=== PATIENT | male | born 1995 | race Caucasian/White ===

== ENCOUNTER 2016-06-28 19:45 | Emergency (ER) | payer OTHER ==
[2016-06-28 20:08] VITALS: RESP 18
--- NOTE | 2016-06-28 21:08 | ED ---
Skin/Abscess/FB HPI - General Chief complaint: Skin/Abscess/Foreign Body Stated complaint: rash Time Seen by Provider: 06/28/16 20:36 Source: patient, RN notes reviewed Mode of arrival: ambulatory Limitations: no limitations - History of Present Illness Initial comments: Patient is 20-year-old male presents to the emergency room for evaluation a rash. Patient states he went to [place] about a month ago and stayed at a friend's house on their couch. Patient states he began developing this rash towards the end of this trip in [place]. Patient states the rash has not gone away since the trip. Patient states the rash is more itchy at night. Patient states the rash is over his bilateral arms, chest, abdomen, back and bilateral legs. Patient states he's been taking Benadryl and applying Benadryl cream over the area with little relief of symptoms. Patient denies any new soaps, detergents, body washes. Patient denies any new pets or plants. Patient denies trying any new foods or new medications. Patient states she's never had this rash before. Patient states the rash is very irritating and itchy. - Related Data Home Medications Medication Instructions Recorded Confirmed diphenhydrAMINE HCL [Benadryl] 25 mg PO Q4-6H PRN 06/28/16 06/28/16 Previous Rx's Medication Instructions Recorded Permethrin 5% Cream [Elimite] 1 applic TOPICAL DIRECTED #1 06/28/16 tube Allergies Allergy/AdvReac Type Severity Reaction Status Date / Time No Known Allergies Allergy Verified 06/28/16 20:38 Review of Systems ROS Statement: Those systems with pertinent positive or pertinent negative responses have been documented in the HPI. ROS Other: All systems not noted in ROS Statement are negative. Past Medical History Past Medical History: No Reported History Additional Past Medical History / Comment(s): Hep C History of Any Multi-Drug Resistant Organisms: None Reported Past Surgical History: No Surgical Hx Reported Past Psychological History: No Psychological Hx Reported Smoking Status: Current every day smoker Past Alcohol Use History: None Reported Past Drug Use History: Marijuana General Exam - General Exam Comments Initial Comments: Sitting in exam room in no acute distress. Limitations: no limitations General appearance: alert, in no apparent distress Head exam: Present: atraumatic, normocephalic, normal inspection Eye exam: Present: normal appearance ENT exam: Present: normal exam Neck exam: Present: normal inspection Respiratory exam: Present: normal lung sounds bilaterally. Absent: respiratory distress Cardiovascular Exam: Present: regular rate, normal rhythm, normal heart sounds Extremities exam: Present: normal inspection Back exam: Present: normal inspection Neurological exam: Present: alert, oriented X3, CN II-XII intact, normal gait Psychiatric exam: Present: normal affect, normal mood Skin exam: Present: warm, dry, rash (Erythematous papule lesions starting in the webbing of fingers radiating up hands, arms, chest, abdomen, back and bilateral legs) Course Vital Signs 06/28/16 06/28/16 20:05 21:15 Temperature 98.0 F 97.9 F Pulse Rate 79 80 Respiratory 18 18 Rate Blood Pressure 124/84 119/63 O2 Sat by Pulse 98 97 Oximetry Medical Decision Making - Medical Decision Making Patient is a 20-year-old male presents to the emergency room for reevaluation of rash. Rash consistent with scabies. Patient will be placed on permethrin cream. Educated patient on permethrin cream application. Advised patient to follow-up with assistant purchasing manager if symptoms are not improving after application. Patient states he understands everything that was discussed with him. Return parameters discussed. Case discussed with Dr. Wylie. Disposition Clinical Impression: Scabies Disposition: HOME SELF-CARE Condition: Good Instructions: Scabies (ED) Additional Instructions: Apply cream from head to toe and leave on for 8-14 hours. Wash off in shower with soap and water. Repeat process in 7 days. If symptoms are not improving, please follow-up with assistant purchasing manager. If any new symptom arises or symptoms worsen, return to ER as soon as possible. Prescriptions: Permethrin 5% Cream [Elimite] 1 applic TOPICAL DIRECTED #1 tube Referrals: Analisa Carpenter MD [STAFF PHYSICIAN] - 1-2 days Time of Disposition: 21:05
[2016-06-28 21:15] VITALS: BP 119/63; PULSE 80; TEMP 97.9
== END 2016-06-28 21:15 | disposition home or self-care (01) ==
LOC: EC 19:45
DX: B86 Scabies (principal); F17.200 Nicotine dependence, unspecified, uncomplicated
CPT/HCPCS: 99282

== ENCOUNTER 2017-07-23 15:32 | Emergency (ER) | payer OTHER ==
[2017-07-23 16:07] VITALS: BP 125/82; PULSE 74; RESP 18; TEMP 98.5
[2017-07-23] MEDS ORDERED: DIPH,PERTUS(ACELL)TETVAC-LF 0.5 ML VIAL IM ONE (16:58)
--- NOTE | 2017-07-23 17:24 | XR ---
EXAMINATION TYPE: XR finger LT DATE OF EXAM: 07/23/2017 COMPARISON: NONE HISTORY: Distal thumb laceration TECHNIQUE: 3 views left thumb FINDINGS: No acute fractures are evident. Soft tissues appear normal. No radiopaque foreign bodies ar e evident. IMPRESSION: 1. Normal three-view left thumb. 2. Follow-up exams can be performed 7-10 days from acute trauma for continued pain.
--- NOTE | 2017-07-23 17:57 | ED ---
Wound/Laceration HPI - General Chief Complaint: Wound/Laceration Stated Complaint: Thumb Laceration Time Seen by Provider: 07/23/17 16:50 Source: patient Mode of arrival: ambulatory Limitations: no limitations - History of Present Illness Initial Comments: 21-year-old male patient presents to the emergency department today for evaluation of a laceration to the left thumb. Patient states that he was lifting a filing cabinet when the cabinet slid and sliced his finger. He states he is unsure how deep the injury is. It doesn't involve the nail. He denies any difficulty with range of motion. States however he does have increased pain with movement of the thumb. He is unsure when his last tetanus vaccine was given. He denies any other injuries. Patient denies any headache, neck pain, back pain, chest pain, shortness of breath, dizziness, weakness, abdominal pain, nausea, vomiting, or difficulties with bowel movements or urination. - Related Data Home Medications Medication Instructions Recorded Confirmed diphenhydrAMINE HCL [Benadryl] 25 mg PO Q4-6H PRN 06/28/16 06/28/16 Previous Rx's Medication Instructions Recorded Permethrin 5% Cream [Elimite] 1 applic TOPICAL DIRECTED #1 06/28/16 tube Allergies Allergy/AdvReac Type Severity Reaction Status Date / Time No Known Allergies Allergy Verified 07/23/17 16:07 Review of Systems ROS Statement: Those systems with pertinent positive or pertinent negative responses have been documented in the HPI. ROS Other: All systems not noted in ROS Statement are negative. Past Medical History Past Medical History: No Reported History Additional Past Medical History / Comment(s): Hep C History of Any Multi-Drug Resistant Organisms: None Reported Past Surgical History: No Surgical Hx Reported Past Psychological History: No Psychological Hx Reported Smoking Status: Current every day smoker Past Alcohol Use History: None Reported Past Drug Use History: None Reported General Exam Limitations: no limitations General appearance: alert, in no apparent distress, other (This is a well- developed, well-nourished adult male patient in no acute distress. Vital signs upon presentation are temperature 98.5F, pulse 74, respirations 18, blood pressure 125/82, pulse ox 98% on room air.) Eye exam: Present: normal appearance, PERRL, EOMI. Absent: scleral icterus, conjunctival injection, periorbital swelling ENT exam: Present: normal exam, normal oropharynx, mucous membranes moist Respiratory exam: Present: normal lung sounds bilaterally. Absent: respiratory distress, wheezes, rales, rhonchi, stridor Cardiovascular Exam: Present: regular rate, normal rhythm, normal heart sounds. Absent: systolic murmur, diastolic murmur, rubs, gallop, clicks Extremities exam: Present: full ROM, normal capillary refill, other (There is a 3 cm laceration to the dorsal aspect of the left thumb, there is approximately 0.5 cm of nail involvement on the proximal nail fold. Bleeding is currently controlled. Patient has full range of motion without limitation. Radial pulses 2+ and equal bilaterally. Remainder of skin is pink, warm, and dry. Cap refills less than 3 seconds.). Absent: normal inspection, tenderness, pedal edema, joint swelling, calf tenderness Neurological exam: Present: alert, oriented X3, CN II-XII intact Psychiatric exam: Present: normal affect, normal mood Skin exam: Present: warm, dry, intact, normal color. Absent: rash Course Vital Signs 07/23/17 16:04 Temperature 98.5 F Pulse Rate 74 Respiratory 18 Rate Blood Pressure 125/82 O2 Sat by Pulse 98 Oximetry Procedures - Laceration Laceration #1 Consent Obtained: verbal consent Time Out Performed: Yes Indication: laceration Site: hand (Left thumb) Size (cm): 3 Description: linear Depth: simple, single layer Anesthetic Used: lidocaine 1% Anesthesia Technique: local infiltration Amount (mls): 3 Pre-repair: wound explored, irrigated extensively Type of Sutures: nylon Size of Sutures: 5-0 Number of Sutures: 5 Technique: simple, interrupted Patient Tolerated Procedure: well, no complications Medical Decision Making - Medical Decision Making 21-year-old male patient presented to the emergency department today for evaluation of a laceration to the left thumb. Physical exam did reveal a 3 cm laceration involving the maximal male. Laceration has been repaired as documented. Patient was updated his tetanus vaccine. He is educated regarding wound care and suture removal. He is instructed to follow-up with his doctor for recheck in 1-2 days. He is instructed to return here immediately for any new, worsening, or concerning symptoms. He verbalized understanding and agree with this plan. - Radiology Data Radiology results: report reviewed, image reviewed 3 views of left thum are obtained, no acute fractures are evident. Soft tissues appear normal. No radiopaque foreign bodies are evident. Disposition Clinical Impression: Thumb laceration Disposition: HOME SELF-CARE Condition: Good Instructions: Care For Your Stitches (ED), Laceration (ED) Additional Instructions: Keep wound clean and dry. Wash twice daily with warm water and antibacterial soap. Monitor for signs or symptoms of infection including but not limited to redness, swelling, drainage of pus, fever, or chills. Return in 7 days to have your stitches taken out. Follow-up with her doctor for recheck in 1-2 days. Return here immediately for any new, worsening, or concerning symptoms. Referrals: None,Stated [Primary Care Provider] - 1-2 days Time of Disposition: 17:57
== END 2017-07-23 18:06 | disposition home or self-care (01) ==
LOC: EC 15:32
DX: S61.012A Laceration without foreign body of left thumb without damage to nail, initial encounter (principal); F17.200 Nicotine dependence, unspecified, uncomplicated; Z23 Encounter for immunization; W45.8XXA Other foreign body or object entering through skin, initial encounter; Y93.89 Activity, other specified
CPT/HCPCS: 12002; 90471; 90715; 99283

== ENCOUNTER 2019-06-20 14:38 | Emergency (ER) | payer OTHER ==
[2019-06-20 14:49] VITALS: BP 132/79
[2019-06-20] MEDS ORDERED: IBUPROFEN 600 MG TAB PO STA (15:03)
[2019-06-20] MEDS ORDERED: ACETAMINOPHEN TAB 500 MG TAB PO STA (15:03)
[2019-06-20] MEDS ORDERED: ONDANSETRON ODT 4 MG TAB PO STA (15:03)
--- NOTE | 2019-06-20 15:28 | XR ---
EXAMINATION TYPE: XR chest 2V DATE OF EXAM: 06/20/2019 COMPARISON: Prior chest x-ray 06/25/2015 HISTORY: Fever, headache and cough TECHNIQUE: Frontal and lateral views of the chest are obtained. FINDINGS: There is no focal air space opacity, pleural effusion, or pneumothorax seen. The cardiac silhouette size is within normal limits. The osseous structures are intact. There is bronchial wall thickening. IMPRESSION: Correlate for bronchiolitis.
--- NOTE | 2019-06-20 15:42 | ED ---
Fever HPI - General Chief Complaint: Fever Stated Complaint: Headaches/body aches Time Seen by Provider: 06/20/19 14:54 Source: patient, family, RN notes reviewed Mode of arrival: ambulatory Limitations: no limitations - History of Present Illness Initial Comments: 23-year-old male presents emergency Department chief complaint of fever cough congestion bodies. Patient states he has been on and off sick but states last revised felt fever. Patient states he just does not feel well. He states he ate he had the toe. He is nonproductive cough and mild nasal congestion minimal sore throat no neck pain or neck stiffness. - Related Data Home Medications Medication Instructions Recorded Confirmed diphenhydrAMINE HCL [Benadryl] 25 mg PO Q4-6H PRN 06/28/16 06/28/16 Previous Rx's Medication Instructions Recorded Permethrin 5% Cream [Elimite] 1 applic TOPICAL DIRECTED #1 06/28/16 tube Oseltamivir [Tamiflu] 75 mg PO Q12HR #10 cap 06/20/19 Allergies Allergy/AdvReac Type Severity Reaction Status Date / Time No Known Allergies Allergy Verified 06/20/19 14:49 Review of Systems ROS Statement: Those systems with pertinent positive or pertinent negative responses have been documented in the HPI. ROS Other: All systems not noted in ROS Statement are negative. Past Medical History Past Medical History: Cancer Additional Past Medical History / Comment(s): liver-cancer Hep C History of Any Multi-Drug Resistant Organisms: None Reported Past Surgical History: No Surgical Hx Reported Past Psychological History: Depression Smoking Status: Current every day smoker Past Alcohol Use History: None Reported Past Drug Use History: None Reported General Exam Limitations: no limitations General appearance: alert, in no apparent distress Head exam: Present: atraumatic, normocephalic, normal inspection Eye exam: Present: normal appearance, PERRL, EOMI. Absent: scleral icterus, conjunctival injection, periorbital swelling ENT exam: Present: normal exam, normal oropharynx, mucous membranes moist Neck exam: Present: normal inspection, full ROM. Absent: tenderness, meningismus, lymphadenopathy Respiratory exam: Present: normal lung sounds bilaterally. Absent: respiratory distress, wheezes, rales, rhonchi, stridor Cardiovascular Exam: Present: normal rhythm, tachycardia, normal heart sounds. Absent: systolic murmur, diastolic murmur, rubs, gallop, clicks GI/Abdominal exam: Present: soft, normal bowel sounds. Absent: distended, tenderness, guarding, rebound, rigid Course Vital Signs 06/20/19 14:45 Temperature 103.1 F H Pulse Rate 121 H Respiratory 24 Rate Blood Pressure 132/79 O2 Sat by Pulse 98 Oximetry Medical Decision Making - Medical Decision Making Chest x-ray is unremarkable, influenza be positive. Patient be given Tamiflu return parameters were discussed. - Lab Data Lab Results 06/20/19 Range/Units 14:45 Influenza Type A RNA Not Detected (Not Detectd) Influenza Type B (PCR) Detected H (Not Detectd) Disposition Clinical Impression: Influenza Disposition: HOME SELF-CARE Condition: Stable Instructions (If sedation given, give patient instructions): Influenza (ED) Additional Instructions: Please return to the Emergency Department if symptoms worsen or any other concerns. Prescriptions: Oseltamivir [Tamiflu] 75 mg PO Q12HR #10 cap Is patient prescribed a controlled substance at d/c from ED?: No Referrals: None,Stated [Primary Care Provider] - 1-2 days Time of Disposition: 15:42
[2019-06-20 15:59] VITALS: PULSE 124; RESP 18; TEMP 102.1
== END 2019-06-20 15:59 | disposition home or self-care (01) ==
LOC: EC 14:38
DX: J10.1 Influenza due to other identified influenza virus with other respiratory manifestations (principal); R00.0 Tachycardia, unspecified; F17.200 Nicotine dependence, unspecified, uncomplicated; Z85.05 Personal history of malignant neoplasm of liver
CPT/HCPCS: 71046; 87502; 99283

== ENCOUNTER 2020-05-04 15:38 | Emergency (ER) | payer OTHER ==
[2020-05-04 15:47] VITALS: BP 133/92; PULSE 108; RESP 18; TEMP 97.6
--- NOTE | 2020-05-04 18:31 | ED ---
Overdose HPI - General Chief Complaint: Overdose Stated Complaint: overdose Time Seen by Provider: 05/04/20 15:51 Source: EMS Mode of arrival: EMS Limitations: no limitations - History of Present Illness Initial Comments: This 24-year-old male presents complaining of overdosing on heroin and fentanyl. He states that he does this every day and has been doing so for years. He thinks that it might have been a different concentration as he did not do any more than normal. He was not intentionally trying to overdose but was doing it recreationally. He states that he knows that he has a problem and is currently on a list to go to rehab and is just waiting for a phone call. He apparently lost consciousness and his girlfriend gave him Narcan and his symptoms resolved. He does present via EMS. His only complaint currently is that of feeling cold. He otherwise been healthy recently. No other complaints or modifying factors. - Related Data Home Medications Medication Instructions Recorded Confirmed diphenhydrAMINE HCL [Benadryl] 25 mg PO Q4-6H PRN 06/28/16 06/28/16 Previous Rx's Medication Instructions Recorded Permethrin 5% Cream [Elimite] 1 applic TOPICAL DIRECTED #1 06/28/16 tube Oseltamivir [Tamiflu] 75 mg PO Q12HR #10 cap 06/20/19 Ondansetron Odt [Zofran Odt] 4 mg PO Q8HR PRN #10 tab 06/21/19 Allergies Allergy/AdvReac Type Severity Reaction Status Date / Time No Known Allergies Allergy Verified 05/04/20 15:47 Review of Systems ROS Statement: Those systems with pertinent positive or pertinent negative responses have been documented in the HPI. ROS Other: All systems not noted in ROS Statement are negative. Past Medical History Past Medical History: Cancer Additional Past Medical History / Comment(s): liver-cancer Hep C History of Any Multi-Drug Resistant Organisms: None Reported Past Surgical History: No Surgical Hx Reported Past Psychological History: Depression Smoking Status: Current every day smoker Past Alcohol Use History: None Reported Past Drug Use History: Heroin General Exam - General Exam Comments Initial Comments: Constitutional: Alert and oriented, no apparent distress Vitals: Reviewed, please see nursing notes HEENT: No gross trauma identified, trachea midline, no respiratory distress Neck: No tenderness, good range of motion Heart: Regular rate and rhythm without murmur Lungs: Clear to auscultation bilaterally, no wheezing rhonchi or rales Abdomen: No tenderness or peritoneal signs noted, nondistended Back: No tenderness Neurologic: No gross sensory or motor deficits identified Integumentary: No rash or change in pigmentation Psychiatric: Alert and oriented, appropriate mood and affect Limitations: no limitations Course Vital Signs 05/04/20 15:44 Temperature 97.6 F Pulse Rate 108 H Respiratory 18 Rate Blood Pressure 133/92 O2 Sat by Pulse 100 Oximetry Medical Decision Making - Medical Decision Making The patient was seen and examined. He was watched on the lapidarist with continuous pulse oximeter for a while. When the nurse went back to check on him he apparently had eloped from the ER. No discharge instructions therefore were given to him. The was counseled regarding heroin and fentanyl abuse initially. It is felt as though he would benefit from rehab and he is to continue with plans for getting set up for rehab. Disposition Clinical Impression: Heroin overdose Disposition: HOME SELF-CARE Condition: Fair Is patient prescribed a controlled substance at d/c from ED?: No Referrals: None,Stated [Primary Care Provider] - 1-2 days Time of Disposition: 17:30
== END 2020-05-04 17:29 | disposition home or self-care (01) ==
LOC: EC 15:38
DX: T40.1X1A Poisoning by heroin, accidental (unintentional), initial encounter (principal); F17.200 Nicotine dependence, unspecified, uncomplicated; Z85.05 Personal history of malignant neoplasm of liver
CPT/HCPCS: 99284

== ENCOUNTER 2022-11-17 15:17 | Emergency (ER) | payer OTHER ==
[2022-11-17 15:23] VITALS: BP 136/88; RESP 18; TEMP 98.5
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
--- NOTE | 2022-11-17 16:29 | XR ---
EXAMINATION TYPE: XR ankle complete LT DATE OF EXAM: 11/17/2022 COMPARISON: None HISTORY: Trauma, pain TECHNIQUE: 3 view left ankle FINDINGS: There is a transverse fracture of the distal diaphyseal fibula. Overlying soft tissue swell ing is present. Ankle mortise is intact. No additional fractures are evident. IMPRESSION: 1. Transverse nondisplaced fracture distal fibula with overlying soft tissue swelling left ankle
[2022-11-17 16:51] VITALS: PULSE 78
== END 2022-11-17 16:51 | disposition home or self-care (01) ==
LOC: EC 15:17
DX: S82.65XA Nondisplaced fracture of lateral malleolus of left fibula, initial encounter for closed fracture (principal); F32.A Depression, unspecified; Z87.891 Personal history of nicotine dependence; Z79.899 Other long term (current) drug therapy; V18.0XXA Pedal cycle driver injured in noncollision transport accident in nontraffic accident, initial encounter; Y93.55 Activity, bike riding
CPT/HCPCS: 29515; 99284

== ENCOUNTER 2023-01-24 07:06 | Emergency (ER) | payer OTHER ==
[2023-01-24 07:11] VITALS: TEMP 98.2
[2023-01-24] MEDS ORDERED: SODIUM CHLORIDE 0.9% 1,000 ML IV ONE (07:14)
[2023-01-24 07:16] LABS: Glucose,Whole Blood 181 mg/dL (70-110)
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
[2023-01-24 07:33] LABS: Basophils % (A) 0 %; Eosinophils # (A) 0.1 k/uL (0-0.7); Eosinophils % (A) 1 %; HCT 46.4 % (39.0-53.0); HGB 15.3 gm/dL (13.0-17.5); Lymphocytes # (A) 2.9 k/uL (1.0-4.8); Lymphocytes % (A) 42 %; MCH 28.8 pg (25.0-35.0); MCV 87.3 fL (80.0-100.0); Monocytes # (A) 0.4 k/uL (0-1.0); Monocytes % (A) 6 %; Neutrophils # (A) 3.4 k/uL (1.3-7.7); Neutrophils % (A) 48 %; Platelet Count 267 k/uL (150-450); RBC 5.32 m/uL (4.30-5.90)
[2023-01-24 07:47] LABS: ALT 15 U/L (4-49); African American GFR (CKD) >90 (>60 ml/min/1.73 sqM); Albumin 5.2 g/dL (3.5-5.0); Anion Gap 15 mmol/L; Blood Urea Nitrogen 19 mg/dL (9-20); Calcium 10.2 mg/dL (8.4-10.2); Carbon Dioxide 21 mmol/L (22-30); Chloride 103 mmol/L (98-107); Glucose 174 mg/dL (74-99); Non-African American GFR(CKD) >90 (>60 ml/min/1.73 sqM); Sodium 139 mmol/L (137-145); Total Bilirubin 1.2 mg/dL (0.2-1.3); Total Protein 9.3 g/dL (6.3-8.2)
[2023-01-24 07:48] LABS: AST 31 U/L (17-59); Alkaline Phosphatase 82 U/L (38-126); Potassium 4.6 mmol/L (3.5-5.1)
[2023-01-24 08:03] VITALS: BP 137/82; PULSE 105; RESP 17
== END 2023-01-24 07:30 | disposition home or self-care (01) ==
LOC: EC 07:06
DX: T40.1X1A Poisoning by heroin, accidental (unintentional), initial encounter (principal); R00.0 Tachycardia, unspecified; Z87.891 Personal history of nicotine dependence
CPT/HCPCS: 36415; 80053; 85025; 93005; 99284

== ENCOUNTER 2023-02-23 14:37 | Emergency (ER) | payer OTHER ==
[2023-02-23 15:20] VITALS: TEMP 98
--- NOTE | 2023-02-23 17:46 | ED ---
General Adult HPI - General Source: patient Mode of arrival: ambulatory Limitations: no limitations <Lakhwinder Mcallister - Last Filed: 02/23/23 17:46> <Mable Tovar - Last Filed: 02/23/23 22:59> - General Chief complaint: Recheck/Abnormal Lab/Rx Stated complaint: Drainage Tube Issue Time Seen by Provider: 02/23/23 17:46 - History of Present Illness Initial comments: 27-year-old male presenting to the ED with a chief complaint of wound check. Patient states a few months ago was in an accident and he had a left tib-fib fracture. States a few months after started to develop an infection reports had surgery at [facility] last week where he had a wound VAC place. States that he missed his follow-up appointment yesterday and is presenting to the ED for evaluation of this. Denies any worsening pain. Denies fever. (Lakhwinder Mcallister) 27-year-old male presents to the emergency department requesting that someone looked at his wound. States that he had surgery [address] [facility] on his left ankle. He did require wound drains to be placed. He was supposed to follow up with his surgeon however unsure of who his surgeon is and what his follow-up appointment was. Patient denies any increasing redness or pain. No fevers. Not currently on any antibiotics. No other alleviating, precipitating modifying factors (Mable Tovar) - Related Data Home Medications Medication Instructions Recorded Confirmed diphenhydrAMINE HCL [Benadryl] 25 mg PO Q4-6H PRN 06/28/16 06/28/16 Previous Rx's Medication Instructions Recorded Permethrin 5% Cream [Elimite] 1 applic TOPICAL DIRECTED #1 06/28/16 tube Oseltamivir [Tamiflu] 75 mg PO Q12HR #10 cap 06/20/19 Ondansetron Odt [Zofran Odt] 4 mg PO Q8HR PRN #10 tab 06/21/19 Ibuprofen [Motrin] 600 mg PO Q8HR PRN #24 tab 11/17/22 Allergies Allergy/AdvReac Type Severity Reaction Status Date / Time sulfamethoxazole Allergy Rash/Hives Verified 02/23/23 15:14 [From Bactrim] trimethoprim [From Bactrim] Allergy Rash/Hives Verified 02/23/23 15:14 Review of Systems ROS Other: All systems not noted in ROS Statement are negative. <Lakhwinder Mcallister - Last Filed: 02/23/23 17:46> ROS Other: All systems not noted in ROS Statement are negative. <Mable Tovar - Last Filed: 02/23/23 22:59> ROS Statement: Those systems with pertinent positive or pertinent negative responses have been documented in the HPI. Past Medical History Past Medical History: Cancer Additional Past Medical History / Comment(s): liver-cancer Hep C History of Any Multi-Drug Resistant Organisms: None Reported Past Surgical History: No Surgical Hx Reported, Joint Replacement, Orthopedic Surgery Past Psychological History: Depression Smoking Status: Former smoker Past Alcohol Use History: None Reported Past Drug Use History: Heroin <Lakhwinder Mcallister - Last Filed: 02/23/23 17:46> General Exam Limitations: no limitations General appearance: alert, in no apparent distress Eye exam: Present: normal appearance Extremities exam: Present: other (Left leg wrapped with bandage and wound VAC in place.) Neurological exam: Present: alert <Lakhwinder Mcallister - Last Filed: 02/23/23 17:46> General appearance: alert, in no apparent distress Head exam: Present: atraumatic, normocephalic, normal inspection Eye exam: Present: normal appearance, PERRL, EOMI. Absent: scleral icterus, conjunctival injection, periorbital swelling ENT exam: Present: normal exam, mucous membranes moist Neck exam: Present: normal inspection. Absent: tenderness, meningismus, lymphadenopathy Respiratory exam: Present: normal lung sounds bilaterally. Absent: respiratory distress, wheezes, rales, rhonchi, stridor Cardiovascular Exam: Present: regular rate, normal rhythm, normal heart sounds. Absent: systolic murmur, diastolic murmur, rubs, gallop, clicks GI/Abdominal exam: Present: soft, normal bowel sounds. Absent: distended, tenderness, guarding, rebound, rigid Extremities exam: Present: tenderness (Patient does have some tenderness to the left distal sal[place] where there are 2 drains stitched to the skin. No discharge at the skin surface. No bleeding. No cellulitic changes. Minimal drainage within the drain reservoir 2+ DP and PT pulses), normal capillary refill. Absent: pedal edema, joint swelling, calf tenderness Back exam: Present: normal inspection Neurological exam: Present: alert, oriented X3, CN II-XII intact Psychiatric exam: Present: normal affect, normal mood Skin exam: Present: warm, dry, intact, normal color. Absent: rash <Mable Tovar - Last Filed: 02/23/23 22:59> Course Vital Signs 02/23/23 02/23/23 15:11 20:19 Temperature 98 F Pulse Rate 128 H 127 H Respiratory 22 18 Rate Blood Pressure 109/71 109/63 O2 Sat by Pulse 99 96 Oximetry Medical Decision Making <Lakhwinder Mcallister - Last Filed: 02/23/23 17:46> <Mable Tovar - Last Filed: 02/23/23 22:59> - Medical Decision Making Quicknote portion performed. Signed Lakhwinder Mcallister PA-C (Lakhwinder Mcallister) Was pt. sent in by a medical professional or institution (SALINA Marie, DIRECTOR OF CLINICAL TRIALS, urgent care, hospital, or [facility]...) When possible be specific @ -No Did you speak to anyone other than the patient for history (EMS, parent, family, police, friend...)? What history was obtained from this source @ -No Did you review nursing and triage notes (agree or disagree)? Why? @ -I reviewed and agree with nursing and triage notes Were old charts reviewed (outside hosp., previous admission, EMS record, old EKG, old radiological studies, urgent care reports/EKG's, [facility] records)? Report findings @ -I called [facility] and they were able to provide his discharge information. Patient apparently left AMA from [facility] Differential Diagnosis (chest pain, altered mental status, abdominal pain women, abdominal pain men, vaginal bleeding, weakness, fever, dyspnea, syncope, hea dache, dizziness, GI bleed, back pain, seizure, CVA, palpatations, mental health, musculoskeletal)? @ -Differential Musculoskeletal Muscular strain, contusion, ligament sprain, fracture, arthritis, septic arthritis, bursitis, cellulitis, muscle spasm, nerve compression, DVT, arterial occlusion, herpes zoster, electrolyte abnormality, tumor.... This is not meant to be in all inclusive list EKG interpreted by me (3pts min.). @ -Not done X-rays interpreted by me (1pt min.). @ -None done CT interpreted by me (1pt min.). @ -None done U/S interpreted by me (1pt. min.). @ -None done What testing was considered but not performed or refused? (CT, X-rays, U/S, labs)? Why? @ -None What meds were considered but not given or refused? Why? @ -None Did you discuss the management of the patient with other professionals (professionals i.e. , PA, DIRECTOR OF CLINICAL TRIALS, lab, RT, psych nurse, social work lecturer, dialysis equipment technician, teacher, commanding officer garage, briefcase sewer)? Give summary @ -No Was smoking cessation discussed for >3mins.? @ -No Was critical care preformed (if so, how long)? @ -No Were there social determinants of health that impacted care today? How? (Homelessness, low income, unemployed, alcoholism, drug addiction, transportation, low edu. Level, literacy, decrease access to med. care, halfway, rehab)? @ -Patient has a history of drug addiction which limits his follow-up Was there de-escalation of care discussed even if they declined (Discuss DNR or withdrawal of care, Hospice)? DNR status @ -No What co-morbidities impacted this encounter? (DM, HTN, Smoking, COPD, CAD, Cancer, CVA, ARF, Chemo, Hep., AIDS, mental health diagnosis, sleep apnea, morbid obesity)? @ -None Was patient admitted / discharged? Hospital course, mention meds given and route, prescriptions, significant lab abnormalities, going to OR and other pertinent info. @ -Discharged. I did evaluate the patient's wound. No concerning signs of infection did patient must have drains removed from his surgeon that placed them. I did call over to [facility] and the patient did have surgery by Dr. Hernandez. I did provide his follow-up information. He is to call and make an appointment. Patient understood this. He was discharged in stable condition Undiagnosed new problem with uncertain prognosis? @ -No Drug Therapy requiring intensive monitoring for toxicity (Heparin, Nitro, Insulin, Cardizem)? @ -No Were any procedures done? @ -No Diagnosis/symptom? @ -Acute surgical site evaluation, status post left ankle surgery Acute, or Chronic, or Acute on Chronic? @ -Acute Uncomplicated (without systemic symptoms) or Complicated (systemic symptoms)? @ -Uncomplicated Side effects of treatment? @ -No Exacerbation, Progression, or Severe Exacerbation? @ -No Poses a threat to life or bodily function? How? (Chest pain, [place], [place], pneumonia, PE, COPD, DKA, ARF, appy, cholecystitis, CVA, Diverticulitis, Homicidal, Suicidal, threat to staff... and all critical care pts) @ -No (Mable Tovar) Disposition <Lakhwinder Mcallister - Last Filed: 02/23/23 17:46> Is patient prescribed a controlled substance at d/c from ED?: No Time of Disposition: 19:52 <Mable Tovar - Last Filed: 02/23/23 22:59> Clinical Impression: Encounter for management of vacuum-assisted closure (VAC) of wound Disposition: HOME SELF-CARE Condition: Stable Instructions (If sedation given, give patient instructions): Negative Pressure Wound Therapy (DC) Additional Instructions: Follow up with your surgeon for further management of your surgical site Referrals: Herbie Aguilar MD [Primary Care Provider] - 1-2 days Ritesh Hernandez MD [REFERRING] - 1-2 days
[2023-02-23 20:24] VITALS: BP 109/63; PULSE 127; RESP 18
== END 2023-02-23 20:25 | disposition home or self-care (01) ==
LOC: EC 14:37
DX: Z48.01 Encounter for change or removal of surgical wound dressing (principal); F11.90 Opioid use, unspecified, uncomplicated; Z88.1 Allergy status to other antibiotic agents; Z88.2 Allergy status to sulfonamides; Z87.891 Personal history of nicotine dependence
CPT/HCPCS: 99283

== ENCOUNTER 2023-03-04 12:09 | Inpatient (IN) | payer OTHER ==
[2023-03-05] MEDS: SODIUM CHLORIDE 0.9% 1,000 ML IV SCH (11:35)
[2023-03-05 11:41] LABS: Glucose,Whole Blood 175 mg/dL (70-110)
[2023-03-05] MEDS ORDERED: Potassium Replacement Protocol 1 EACH MISC MISCELLANE PRN (12:12)
[2023-03-05] MEDS ORDERED: Phosphorus Replacement Protoco 1 EACH MISC MISCELLANE PRN (12:12)
[2023-03-05] MEDS ORDERED: NALOXONE 0.4 MG/ML 1 ML VIAL IV PRN (12:12)
[2023-03-05] MEDS ORDERED: Magnesium Replacement Protocol 1 EACH MISC MISCELLANE PRN (12:12)
--- NOTE | 2023-03-05 12:29 | XR ---
EXAMINATION TYPE: XR chest 1V portable DATE OF EXAM: 03/05/2023 12:22 PM COMPARISON: Chest radiographs from 06/20/2019 TECHNIQUE: XR chest 1V portable Portable AP radiograph of the chest. CLINICAL INDICATION:Male, 27 years old with history of Dyspnea; endocarditis FINDINGS: Lungs/Pleura: No pleural effusion or pneumothorax. Multifocal cavitary lesions demonstrated throughou t the lungs measuring up to 1.9 cm. Pulmonary vascularity: Unremarkable. Heart/mediastinum: Cardiomediastinal silhouette is unremarkable. Musculoskeletal: No acute osseous pathology. IMPRESSION: Multifocal cavitary lesions demonstrated throughout the lungs. This likely represents septic emboli i n the setting of reported endocarditis. This can be further evaluated with CT chest.
--- NOTE | 2023-03-05 13:00 | P.CONS ---
History of Present Illness - Reason for Consult Consult date: 03/05/23 wound care - History of Present Illness This is a 27-year-old male being seen in the ICU for a nonhealing ulceration to the left ankle. Patient had a I&D in January at that time a negative wound VAC was placed however the patient left AMA. Patient has not had routine wound care to the site. He had [address] However the incision was not well approximated. Patient ulceration measures approximately 4 x 0.3 x 0.3 cm with significant undermining from 12:00 to 5:00 and 6:00 to 11:00 measuring as far as 1 cm in depth. Sutures were removed. Review Of Systems: Constitutional: No fever, no chills, no night sweats. No weight change. No weakness, fatigue or lethargy. No daytime sleepiness. Integumentary:reports wounds, no lesions. No rash or pruritus. No unusual bruising. No change in hair or nails. Physical exam: General Appearance: Alert, cooperative, no distress, appears stated age. Skin: See HPI all other Skin color, texture, tugor normal, no rashes or lesions. Neurologic: Alert oriented x3 Assessment: 1. 1. Nonhealing ulceration with fatty layer exposure left ankle Plan: 1. Apply Santyl saline moistened gauze, dry gauze, rolled gauze and secure with paper tape. Wrap with coban for compression. Thank you for the consultation any questions please contact the wound care center DNP note has been reviewed and discussed with Dr. Ortega and the impression and plan of care has been directed as dictated. Past Medical History Past Medical History: Cancer Additional Past Medical History / Comment(s): liver-cancer Hep C History of Any Multi-Drug Resistant Organisms: None Reported Past Surgical History: No Surgical Hx Reported, Joint Replacement, Orthopedic Surgery Past Psychological History: Depression Smoking Status: Former smoker Past Alcohol Use History: None Reported Past Drug Use History: Heroin Medications and Allergies Home Medications Medication Instructions Recorded Confirmed Type No Known Home Medications 03/05/23 03/05/23 History Allergies Allergy/AdvReac Type Severity Reaction Status Date / Time cephalexin [From Keflex] Allergy Rash/Hives Verified 03/05/23 12:45 sulfamethoxazole Allergy Rash/Hives, Verified 03/05/23 12:32 [From Bactrim] Swelling trimethoprim [From Bactrim] Allergy Rash/Hives, Verified 03/05/23 12:32 Swelling Physical Exam Vitals: Intake and Output 03/04/23 03/05/23 03/05/23 22:59 06:59 14:59 Other: Weight 54.4 kg Results Labs: Abnormal Lab Results - Last 24 Hours (Table) 03/05/23 Range/Units 11:29 POC Glucose (mg/dL) 175 H (70-110) mg/dL Assessment and Plan (1) Non-pressure chronic ulcer of left ankle with fat layer exposed Current Visit: Yes Status: Acute Code(s): L97.322 - NON-PRESSURE CHRONIC ULCER OF LEFT ANKLE W FAT LAYER EXPOSED SNOMED Code(s): 34156273349612545
[2023-03-05 13:06] LABS: Anisocytosis Slight; Basophils # (A) 0.1 k/uL (0-0.2); Basophils % (A) 0 %; Eosinophils # (A) 0.1 k/uL (0-0.7); Eosinophils % (A) 0 %; HCT 27.4 % (39.0-53.0); Hypochromasia Slight; Lymphocytes # (A) 3.1 k/uL (1.0-4.8); Lymphocytes % (A) 14 %; MCH 28.8 pg (25.0-35.0); MCHC 32.8 g/dL (31.0-37.0); MCV 87.7 fL (80.0-100.0); Mean Platelet Volume 7.9; Monocytes # (A) 0.4 k/uL (0-1.0); Monocytes % (A) 2 %; Neutrophils # (A) 17.7 k/uL (1.3-7.7); Neutrophils % (A) 81 %; Platelet Count 184 k/uL (150-450); RBC 3.13 m/uL (4.30-5.90); RDW 17.3 % (11.5-15.5); WBC 21.9 k/uL (3.8-10.6)
[2023-03-05 13:08] LABS: INR 1.1 (<1.2); Partial Thromboplastin Time 27.4 sec (22.0-30.0); Prothrombin Time 11.4 sec (10.0-12.5)
--- NOTE | 2023-03-05 13:19 | P.PN ---
Subjective Progress Note Date: 03/05/23 PROGRESS NOTE The patient is a 27-year-old male with history of heroin use, last used on February 27 who was transferred from [facility]. He was admitted recently with evidence of infection in his foot with abscess. He was found to have tricuspid aortic valve vegetation and pulmonary septic embolization. He has symptoms of dyspnea but no chest discomfort. He denies any dizziness, palpitations or syncope. He uses tobacco. He has no history of hypertension, hyperlipidemia or diabetes. Medications: Patient was on IV antibiotics, his protocol is not available to me PHYSICAL EXAMINATION: Blood pressure 120/70 heart rate 80 LUNGS: Decreased air exchange with scattered wheezes HEART: Regular rate and rhythm, S1, S2. No S3. No systolic murmur ABDOMEN: Soft, nontender, no organomegaly EXTREMETIES: Dressing on the foot LAB: Pending IMPRESSION: 1. 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 Abscess on the foot 3. History of intravenous drug use 4. History of tobacco use PLAN: 1. Plan for REY tomorrow, the risks and the complications were discussed with the patient 2. Infectious disease consultation 3. Cardiac surgery consultation 4. Depending on his progress further recommendations will be made Objective - Vital Signs Vital signs: Intake & Output 03/04/23 03/05/23 03/05/23 18:59 06:59 18:59 Weight 54.4 kg - Labs Labs: Abnormal Lab Results - Last 24 Hours (Table) 03/05/23 Range/Units 11:29 POC Glucose (mg/dL) 175 H (70-110) mg/dL
[2023-03-05 13:33] LABS: ALT 115 U/L (4-49); AST 91 U/L (17-59); African American GFR (CKD) >90 (>60 ml/min/1.73 sqM); Albumin 1.7 g/dL (3.5-5.0); Alkaline Phosphatase 267 U/L (38-126); Anion Gap 6 mmol/L; Blood Urea Nitrogen 11 mg/dL (9-20); Calcium 6.9 mg/dL (8.4-10.2); Carbon Dioxide 14 mmol/L (22-30); Chloride 112 mmol/L (98-107); Glucose 130 mg/dL (74-99); Magnesium 2.1 mg/dL (1.6-2.3); Non-African American GFR(CKD) >90 (>60 ml/min/1.73 sqM); Phosphorus 3.1 mg/dL (2.5-4.5); Sodium 132 mmol/L (137-145); Total Bilirubin 1.3 mg/dL (0.2-1.3); Total Protein 5.5 g/dL (6.3-8.2)
--- NOTE | 2023-03-05 13:51 | P.CNPUL ---
History of Present Illness Consult date: 03/05/23 Requesting physician: Herbie Aguilar Reason for consult: other Chief complaint: Endocarditis. History of present illness: Pulmonary consult dated 03/05/2023. This is a 27-year-old male who was transferred over from [facility], today, to [facility]. I was called by cardiology, who wanted the patient transferred over, because of endocarditis involving the tricuspid valve. The patient was apparently seen initially, on February 16, at [facility] for left ankle cellulitis. Patient was seen and, treated, surgically, with a wound VAC placement, and then left AGAINST MEDICAL ADVICE. The patient was seen subsequent to that [facility] on February 23. He went back to [facility], on February 27, apparently, under the effects of polysubstance overdose, and was admitted to the hospital. The patient has a history of ADHD, hepatitis C, IVDA, and depression. The patient's currently on room air, receiving vancomycin for his methicillin- resistant staph aureus sepsis, and endocarditis, and getting saline at 100 mL an hour. Laboratory data here includes a white count of 21.9, hemoglobin 9, hematocrit 27.4, and platelet count of 94,000. Sodium 132, potassium 4, chlorides 112, CO2 14, BUN 11, creatinine 0.63. Glucose 130. AST is 91, ALT is 115, and albumin is only 1.7. Chest x-ray shows too many to count cavitary lesions bilaterally. Review of Systems REVIEW OF SYSTEMS: CONSTITUTIONAL: Fatigue and weakness. NEUROLOGIC: [ Negative.] HEENT: [ Negative.] CARDIAC: Tricuspid valve endocarditis. PULMONARY: Shortness of breath. GI: Poor appetite. : [Negative.] RHEUMATOLOGIC: [ Negative.] IMMUNOLOGIC: [ Negative.] ENDOCRINE: [Negative. ] DERMATOLOGIC: [Negative.] Past Medical History Past Medical History: Cancer Additional Past Medical History / Comment(s): liver-cancer Hep C History of Any Multi-Drug Resistant Organisms: None Reported Date of last positivie culture/infection: 02/16/23 MDRO Source:: Blood, Left ankle wound Past Surgical History: No Surgical Hx Reported, Joint Replacement, Orthopedic Surgery Additional Past Surgical History / Comment(s): I & D left ankle 02/16/23 Past Anesthesia/Blood Transfusion Reactions: No Reported Reaction Past Psychological History: Depression Smoking Status: Former smoker Past Alcohol Use History: None Reported Past Drug Use History: Heroin - Past Family History Mother History Unknown: Yes Additional Family Medical History / Comment(s): Mother from overdose, age unknown. Father History Unknown: Yes Additional Family Medical History / Comment(s): Patient never met his father. Medications and Allergies Home Medications Medication Instructions Recorded Confirmed Type No Known Home Medications 03/05/23 03/05/23 History Allergies Allergy/AdvReac Type Severity Reaction Status Date / Time cephalexin [From Keflex] Allergy Rash/Hives Verified 03/05/23 12:45 sulfamethoxazole Allergy Rash/Hives, Verified 03/05/23 12:32 [From Bactrim] Swelling trimethoprim [From Bactrim] Allergy Rash/Hives, Verified 03/05/23 12:32 Swelling Physical Exam Osteopathic Statement: *. No significant issues noted on an osteopathic structural exam other than those noted in the History and Physical/Consult. Vitals: Vital Signs Temp Pulse Resp BP Pulse Ox 03/05/23 13:00 124 H 23 131/82 96 03/05/23 12:30 124 H 27 H 94 L 03/05/23 12:00 125 H 26 H 122/84 95 03/05/23 11:30 23 97 03/05/23 11:29 99.2 F 125 H 26 H 139/89 96 Intake and Output 03/04/23 03/05/23 03/05/23 22:59 06:59 14:59 Intake Total 270 Output Total 300 Balance -30 Intake: IV 270 Invasive Line 1 10 Invasive Line 2 10 Sodium Chloride 0.9% 1, 250 000 ml @ 100 mls/hr IV . Q10H [facility] Rx#:[id number] Output: Urine 300 Other: Voiding Method Indwelling Catheter Weight 54.4 kg No acute distress, oriented 3. Currently on room air. HEENT examination is grossly unremarkable. Neck supple. Full range of motion. No adenopathy thyromegaly or neck vein distention. Cardiovascular examination reveals regular rhythm rate. S1-S2 normal. No S3 or S4. No discernible murmur noted. Heart rate 124 bpm. Lungs reveal scattered bilateral rhonchi. No wheezes or crackles. Room air saturation 96%. Abdomen soft bowel sounds are heard. No masses or tenderness. Extremities are intact. No cyanosis clubbing or edema. Left ankle wound, partially open, with sutures in place. Skin is without rash or lesion. Neurologic examination is brief but nonfocal. Results - Laboratory Findings CBC and BMP: 03/05/23 12:32 03/05/23 12:32 PT/INR, D-dimer PT 11.4 sec (10.0-12.5) 03/05/23 12:32 INR 1.1 (<1.2) 03/05/23 12:32 Abnormal lab findings: Abnormal Labs 03/05/23 03/05/23 03/05/23 11:29 12:32 12:32 WBC 21.9 H RBC 3.13 L Hgb 9.0 L D Hct 27.4 L RDW 17.3 H Neutrophils # 17.7 H Sodium 132 L Chloride 112 H Carbon Dioxide 14 L Creatinine 0.63 L Glucose 130 H POC Glucose (mg/dL) 175 H Calcium 6.9 L AST 91 H ALT 115 H Alkaline Phosphatase 267 H Total Protein 5.5 L Albumin 1.7 L - Diagnostic Findings Chest x-ray: image reviewed Assessment and Plan Assessment: Methicillin-resistant staph aureus sepsis, with tricuspid valve endocarditis, and multiple bilateral cavitary pulmonary lesions. History of intravenous drug abuse. History of depression. History of ADHD. Left ankle cellulitis. Status post 1 unit of PRBCs, for anemia. Plan: Plan dated 03/05/2023. The patient is transferred over from [facility], to [facility]. The patient will be seen by cardiology, and also be seen by cardiothoracic surgery. I did speak to cardiology earlier today, and except for the patient into the intensive care unit. The patient should be started back on vancomycin. The patient's chest x-ray is quite concerning, as it has multiple bilateral cavitary lesions. There are too many to count. Additional recommendations and suggestions are forthcoming. Prognosis is guarded. We will continue to follow make recommendations along the way. Time with Patient: Greater than 30
[2023-03-05 13:56] LABS: C Reactive Protein 14.9 mg/dL (<1.0)
[2023-03-05 15:35] LABS: Appearance,Urine Cloudy (Clear); Bacteria,Urine Rare /hpf; Bilirubin,Urine Negative (Negative); Blood,Urine Negative (Negative); Color,Urine Light Yellow; Glucose,Urine (UA) Negative (Negative); Ketones,Urine Negative (Negative); Leukocyte Esterase,Urine Negative (Negative); Mucus,Urine Few /hpf; Nitrite,Urine Negative (Negative); PH, Urine 5.5 (5.0-8.0); Protein,Urine Negative (Negative); RBC,Urine 1 /hpf (0-5); Specific Gravity,Urine 1.008 (1.001-1.035); Urobilinogen,Urine <2.0 mg/dL (<2.0); WBC,Urine 1 /hpf (0-5)
[2023-03-05] MEDS: ACETAMINOPHEN TAB 325 MG TAB PO PRN ×2 (17:18→22:21)
[2023-03-05] MEDS: COLLAGENASE 250 UNIT/GM OINTMENT 30 GM TUBE TOPICAL SCH (17:26)
[2023-03-05] MEDS ORDERED: VANCOMYCIN IV PER PHARMACY 1 EACH MISC MISCELLANE PRN (17:55)
--- NOTE | 2023-03-05 18:27 | P.GSCN ---
History of Present Illness Consult date: 03/05/23 Reason for Consult: Endocarditis involving his tricuspid valve Requesting physician: Herbie Aguilar History of present illness: This is a 27-year-old gentleman who follows on an outpatient basis for his primary care with Dr. Herbie Aguilar. He has a past medical history significant for heroin IV drug abuse, hepatitis C, ADHD, depression, sepsis, abscess of the left lower leg, and chronic nicotine abuse with elevating. According to the patient he developed some redness and swelling to his left lower leg ankle area leg in late January and subsequently on 02/16/2023 underwent a I&D of his left ankle. Subsequently after the procedure was completed the patient states that he left the hospital at [facility] AGAINST MEDICAL ADVICE to use here when. The patient presented back to the hospital at [facility] on 02/27/2023 with sepsis and delirium according to the patient. He does not remember how he mated to the hospital. He does report recent fever, chills, nausea, chest pain and shortness of breath. He denies any headache, constipation, diarrhea, palpitations, lightheadedness, presyncope, visual disturbances or syncope. According to the patient's chart from [facility] the patient did have a fever as high as 101.2F, his laboratory results from today showed a WBC count of 18.2, hemoglobin 7.4, hematocrit 23.4, platelets 141, sodium 132, potassium 3.6, chloride 104, CO2 19.2, BUN 12, creatinine 0.68, glucose 118, calcium 6.4, and magnesium 1.45. Patient had a C reactive protein completed on 03/03/2023 which showed a value of 6.34. The patient also underwent a chest x-ray which the report showed multiple nodular infiltrates seen bilaterally with central lucency felt to be compatible with septic emboli. Patient also underwent a transthoracic 2-D echocardiogram on 03/02/2023 which demonstrated a normal left ventricular size with mild global decrease in contractility, the left ventricular systolic function to be normal with an ejection fraction of 50-55%, trace aortic valve regurgitation, trace mitral valve regurgitation, moderate to severe tricuspid valve regurgitation with an RVSP of 60 mmHg and a large vegetation on the tricuspid valve, and it also demonstrated mild to moderate pulmonic valve regurgitation. Patient is also receiving vancomycin for positive blood cultures showing methicillin- resistant staph aureus sepsis and endocarditis. Subsequently due to these findings the patient was transferred to [facility] with a consult placed to cardiothoracic surgery for further evaluation and treatment recommendations. Review of Systems A 14 point review of systems was completed and was negative except as mentioned in the HPI. Past Medical History Past Medical History: Liver Disease Additional Past Medical History / Comment(s): Hep C History of Any Multi-Drug Resistant Organisms: None Reported Year Discovered:: 02/16/23 MDRO Source:: Blood, Left ankle wound Past Surgical History: Orthopedic Surgery Additional Past Surgical History / Comment(s): I & D left ankle 02/16/23 Past Anesthesia/Blood Transfusion Reactions: No Reported Reaction Past Psychological History: Depression Smoking Status: Former smoker, Vaper Past Alcohol Use History: None Reported Past Drug Use History: Heroin Additional Drug Use History / Comment(s): Heroin and fentanyl use - Past Family History Mother History Unknown: Yes Additional Family Medical History / Comment(s): Mother from overdose, age unknown. Father History Unknown: Yes Additional Family Medical History / Comment(s): Patient never met his father. Medications and Allergies Home Medications Medication Instructions Recorded Confirmed Type No Known Home Medications 03/05/23 03/05/23 History Allergies Allergy/AdvReac Type Severity Reaction Status Date / Time cephalexin [From Keflex] Allergy Rash/Hives Verified 03/05/23 12:45 sulfamethoxazole Allergy Rash/Hives, Verified 03/05/23 12:32 [From Bactrim] Swelling trimethoprim [From Bactrim] Allergy Rash/Hives, Verified 03/05/23 12:32 Swelling Surgical - Exam Vital Signs Temp Pulse Resp BP Pulse Ox 99.2 F 125 H 26 H 139/89 96 03/05/23 11:29 03/05/23 11:29 03/05/23 11:29 03/05/23 11:29 03/05/23 11:29 - General This a 27-year-old gentleman that is complaining of generalized pain all over his body no distress, no pain (Ankle), cachectic, chronically ill - Eyes PERRL, normal ocular movement, no pale, no icteric - ENT normal pinna, normal nares, normal mucosa, no hearing loss, no congestion, poor residential - Neck Neck is supple, no lymphadenopathy. no masses, no bruits, trachea midline, no venous distension - Respiratory Lung sounds essentially clear throughout, although there is some scattered rhonchi. No crackles, or wheezes. Respirations are symmetrical and nonlabored. Oxygen saturation are 96% on room air. - Cardiovascular Regular rhythm and tachycardic rate. S1 and S2 present, negative for S3, gallop or murmur. - Abdomen Abdomen is soft, nontender and nondistended. Active bowel sounds present in all 4 abdominal quadrants. No guarding or rigidity. No organomegaly appreciated. - Genitourinary Deferred - Rectum Deferred - Integumentary Open abscess to his left lower lateral malleolus, scant serosanguineous drainage. no rash, no growths, no abnormal pigmentation - Neurologic No focal deficits. normal coordination, normal sensation - Musculoskeletal Moves all 4 extremities with equal strength bilaterally. Weakness to his left foot due to pain with movement. - Psychiatric Reports he has some short-term memory loss while he was in [facility] enter oriented to time, oriented to person, oriented to place, speech is normal, memory intact Results - Labs 03/05/23 12:32 03/05/23 12:32 Abnormal Lab Results - Last 24 Hours (Table) 03/05/23 03/05/23 03/05/23 Range/Units 11:29 12:32 12:32 WBC 21.9 H (3.8-10.6) k/uL RBC 3.13 L (4.30-5.90) m/uL Hgb 9.0 L D (13.0-17.5) gm/dL Hct 27.4 L (39.0-53.0) % RDW 17.3 H (11.5-15.5) % Neutrophils # 17.7 H (1.3-7.7) k/uL Sodium 132 L (137-145) mmol/L Chloride 112 H (98-107) mmol/L Carbon Dioxide 14 L (22-30) mmol/L Creatinine 0.63 L (0.66-1.25) mg/dL Glucose 130 H (74-99) mg/dL POC Glucose (mg/dL) 175 H (70-110) mg/dL Calcium 6.9 L (8.4-10.2) mg/dL AST 91 H (17-59) U/L ALT 115 H (4-49) U/L Alkaline Phosphatase 267 H (38-126) U/L Total Protein 5.5 L (6.3-8.2) g/dL Albumin 1.7 L (3.5-5.0) g/dL Diabetes panel 03/05/23 Range/Units 12:32 Sodium 132 L (137-145) mmol/L Potassium 4.0 (3.5-5.1) mmol/L Chloride 112 H (98-107) mmol/L Carbon Dioxide 14 L (22-30) mmol/L BUN 11 (9-20) mg/dL Creatinine 0.63 L (0.66-1.25) mg/dL Glucose 130 H (74-99) mg/dL Calcium 6.9 L (8.4-10.2) mg/dL AST 91 H (17-59) U/L ALT 115 H (4-49) U/L Alkaline Phosphatase 267 H (38-126) U/L Total Protein 5.5 L (6.3-8.2) g/dL Albumin 1.7 L (3.5-5.0) g/dL Calcium panel 03/05/23 Range/Units 12:32 Calcium 6.9 L (8.4-10.2) mg/dL Phosphorus 3.1 (2.5-4.5) mg/dL Albumin 1.7 L (3.5-5.0) g/dL Pituitary panel 03/05/23 Range/Units 12:32 Sodium 132 L (137-145) mmol/L Potassium 4.0 (3.5-5.1) mmol/L Chloride 112 H (98-107) mmol/L Carbon Dioxide 14 L (22-30) mmol/L BUN 11 (9-20) mg/dL Creatinine 0.63 L (0.66-1.25) mg/dL Glucose 130 H (74-99) mg/dL Calcium 6.9 L (8.4-10.2) mg/dL Adrenal panel 03/05/23 Range/Units 12:32 Sodium 132 L (137-145) mmol/L Potassium 4.0 (3.5-5.1) mmol/L Chloride 112 H (98-107) mmol/L Carbon Dioxide 14 L (22-30) mmol/L BUN 11 (9-20) mg/dL Creatinine 0.63 L (0.66-1.25) mg/dL Glucose 130 H (74-99) mg/dL Calcium 6.9 L (8.4-10.2) mg/dL Total Bilirubin 1.3 (0.2-1.3) mg/dL AST 91 H (17-59) U/L ALT 115 H (4-49) U/L Alkaline Phosphatase 267 H (38-126) U/L Total Protein 5.5 L (6.3-8.2) g/dL Albumin 1.7 L (3.5-5.0) g/dL - Imaging Chest x-ray: report reviewed, image reviewed Assessment and Plan Assessment: Transthoracic 2-D echocardiogram showed a large vegetation to his tricuspid valve with moderate to severe tricuspid valve regurgitation Sepsis with positive blood culture showing MRSA Abscess to his left lateral malleolus, status post I&D IV drug use, heroin and fentanyl Hepatitis C History of delirium Chronic ongoing tobacco dependence with taping Plan: The patient was seen and examined at his bedside in the intensive care unit. His chart and diagnostics were reviewed. This case was discussed in detail with Dr. Pallavi Park from cardiothoracic surgery. Dr. Park reviewed the findings on the transthoracic 2-D echocardiogram. The patient is scheduled to undergo a transesophageal echocardiogram tomorrow to be performed by cardiology. Dr. Park is recommending transfer to [facility] to undergo angio-vac procedure to be performed by Dr. Soriano. Dr. Park spoke with Dr. Hill from cardiology regarding recommendations for angio-vac Antibiotic management per infectious disease recommendations. Medical management and other comorbidities per primary care service. Discussed with the patient importance of cessation of IV drug use and vaping. More recommendations to follow based on patient's clinical course. Thank you Dr. Aguilar for this consult and we look forward to working with you in the care of this patient. I have personally seen and examined the patient, performed the documentation and the assessment and plan as written. 30 minutes spent on the visit. Vito Emanuel
[2023-03-05] MEDS: KETOROLAC 15 MG/ML 1 ML VIAL IVP PRN (18:44)
[2023-03-05] MEDS ORDERED: VANCOMYCIN 1,000 MG in SODIUM CHLORIDE 0.9% 250 ML IVPB SCH (19:00)
[2023-03-05] MEDS: VANCOMYCIN 1,000 MG in SODIUM CHLORIDE 0.9% 250 ML IVPB SCH (20:20)
[2023-03-05] MEDS: HEPARIN SODIUM,PORCINE 5,000 UNIT/ML 1 ML VIAL SQ SCH (20:20)
[2023-03-05] MEDS: ZOLPIDEM 5 MG TAB PO PRN (21:02)
[2023-03-05] MEDS: ONDANSETRON 4 MG/2 ML VIAL IVP PRN (22:15)
[2023-03-05] MEDS: LORazepam 2 MG/ML INJ IV PRN (22:59)
--- NOTE | 2023-03-06 00:03 | P.CONS ---
History of Present Illness - Reason for Consult Consult date: 03/05/23 sepsis, MRSA bacteremia Requesting physician: Herbie Aguilar - Chief Complaint shortness of breath and chest pain x few days - History of Present Illness Patient is a 27-year-old male with a past medical history significant for IV drug use patient apparently was recently admitted at [facility] with left lower leg abscess s/p surgical drainage, patient apparently left AGAINST MEDICAL ADVICE and subsequently presenting back to the hospital with delirium weakness fever and chills and some mental status changes patient on presentation to that facility did have a fever elevated white count and did have MRSA bacteremia patient did have a chest x-ray that was suspicious for possible septic emboli also have a 2D echocardiogram with moderate to severe tricuspid regurgitation and vegetation on tricuspid valve patient subsequently has been transferred to [facility] to be evaluated by CT surgery, patient on presentation to this facility did have a low-grade fever of 99.2 F,The patient was tachycardic not hypotensive or hypoxic and no need for supplemental oxygen patient did have vital 21.9 with left shift creatinine was normal liver enzymes are elevated CRP is elevated urine is negative patient was continued on vancomycin infectious was consulted for further management of antibiotic therapy patient currently denies having any headache or URI symptoms no chest pain complaining of some shortness of breath minimal cough but no sputum production no nausea vomiting no abdominal pain or diarrhea. Did have nonhealing wound to the left lower extremity with some dull aching pain 5-6 of 10 radiation or any drainage from the left lateral leg wound area Review of Systems Positive point and negatives has been mentioned in the HPI, complete review of systems was performed and all other systems are negative Past Medical History Past Medical History: Liver Disease Additional Past Medical History / Comment(s): Hep C History of Any Multi-Drug Resistant Organisms: None Reported Year Discovered:: 02/16/23 MDRO Source:: Blood, Left ankle wound Past Surgical History: Orthopedic Surgery Additional Past Surgical History / Comment(s): I & D left ankle 02/16/23 Past Anesthesia/Blood Transfusion Reactions: No Reported Reaction Past Psychological History: Depression Smoking Status: Former smoker, Vaper Past Alcohol Use History: None Reported Past Drug Use History: Heroin Additional Drug Use History / Comment(s): Heroin and fentanyl use - Past Family History Mother History Unknown: Yes Additional Family Medical History / Comment(s): Mother from overdose, age unknown. Father History Unknown: Yes Additional Family Medical History / Comment(s): Patient never met his father. Medications and Allergies Home Medications Medication Instructions Recorded Confirmed Type No Known Home Medications 03/05/23 03/05/23 History Allergies Allergy/AdvReac Type Severity Reaction Status Date / Time cephalexin [From Keflex] Allergy Rash/Hives Verified 03/05/23 12:45 sulfamethoxazole Allergy Rash/Hives, Verified 03/05/23 12:32 [From Bactrim] Swelling trimethoprim [From Bactrim] Allergy Rash/Hives, Verified 03/05/23 12:32 Swelling Physical Exam Vitals: Vital Signs Temp Pulse Resp BP Pulse Ox 03/05/23 19:00 121 H 28 H 124/90 95 03/05/23 18:30 125 H 26 H 143/87 95 03/05/23 18:00 130 H 24 122/91 94 L 03/05/23 17:30 130 H 27 H 135/92 95 03/05/23 17:00 128 H 33 H 126/84 98 03/05/23 16:30 128 H 38 H 126/92 98 03/05/23 16:00 99.0 F 128 H 24 132/91 99 03/05/23 15:30 126 H 26 H 129/86 97 03/05/23 15:00 128 H 14 125/81 87 L 03/05/23 14:30 117 H 36 H 135/89 98 03/05/23 14:00 123 H 38 H 134/83 95 03/05/23 13:30 129 H 34 H 131/82 88 L 03/05/23 13:00 124 H 23 131/82 96 03/05/23 12:30 124 H 27 H 94 L 03/05/23 12:00 125 H 26 H 122/84 95 03/05/23 11:30 23 97 03/05/23 11:29 99.2 F 125 H 26 H 139/89 96 Intake and Output 03/05/23 03/05/23 03/05/23 06:59 14:59 22:59 Intake Total 610 760 Output Total 400 625 Balance 210 135 Intake: IV 370 520 Invasive Line 1 10 10 Invasive Line 2 10 10 Sodium Chloride 0.9% 1, 350 500 000 ml @ 100 mls/hr IV . Q10H [facility] Rx#:[id number] Oral 240 240 Output: Urine 400 625 Other: Voiding Method Indwelling Catheter Indwelling Catheter # Bowel Movements 0 Weight 54.4 kg GENERAL DESCRIPTION: Middle-aged male lying in bed, no distress. No tachypnea or accessory muscle of respiration use. HEENT: Shows Pallor , no scleral icterus. Oral mucous membrane is dry. No pharyngeal erythema or thrush NECK: Trachea central, no thyromegaly. LUNGS: Unlabored breathing. coarse breath sounds bilaterally HEART: S1, S2, regular rate and rhythm. systolic loud murmur ABDOMEN: Soft, no tenderness , guarding or rigidity, no organomegaly EXTREMITIES: No edema of feet. SKIN: No rash, no masses palpable. NEUROLOGICAL: The patient is awake, alert, oriented x3, mood and affect normal. Results CBC & Chem 7: 03/08/23 22:21 03/09/23 05:05 Labs: Abnormal Lab Results - Last 24 Hours (Table) 03/05/23 03/05/23 03/05/23 Range/Units 11:29 12:32 12:32 WBC 21.9 H (3.8-10.6) k/uL RBC 3.13 L (4.30-5.90) m/uL Hgb 9.0 L D (13.0-17.5) gm/dL Hct 27.4 L (39.0-53.0) % RDW 17.3 H (11.5-15.5) % Neutrophils # 17.7 H (1.3-7.7) k/uL Sodium 132 L (137-145) mmol/L Chloride 112 H (98-107) mmol/L Carbon Dioxide 14 L (22-30) mmol/L Creatinine 0.63 L (0.66-1.25) mg/dL Glucose 130 H (74-99) mg/dL POC Glucose (mg/dL) 175 H (70-110) mg/dL Calcium 6.9 L (8.4-10.2) mg/dL AST 91 H (17-59) U/L ALT 115 H (4-49) U/L Alkaline Phosphatase 267 H (38-126) U/L C-Reactive Protein (<1.0) mg/dL Total Protein 5.5 L (6.3-8.2) g/dL Albumin 1.7 L (3.5-5.0) g/dL Urine Bacteria (None) /hpf Urine Mucus (None) /hpf 03/05/23 03/05/23 Range/Units 12:32 13:21 WBC (3.8-10.6) k/uL RBC (4.30-5.90) m/uL Hgb (13.0-17.5) gm/dL Hct (39.0-53.0) % RDW (11.5-15.5) % Neutrophils # (1.3-7.7) k/uL Sodium (137-145) mmol/L Chloride (98-107) mmol/L Carbon Dioxide (22-30) mmol/L Creatinine (0.66-1.25) mg/dL Glucose (74-99) mg/dL POC Glucose (mg/dL) (70-110) mg/dL Calcium 7.0 L (8.4-10.2) mg/dL AST (17-59) U/L ALT (4-49) U/L Alkaline Phosphatase (38-126) U/L C-Reactive Protein 14.9 H (<1.0) mg/dL Total Protein (6.3-8.2) g/dL Albumin (3.5-5.0) g/dL Urine Bacteria Rare H (None) /hpf Urine Mucus Few H (None) /hpf Assessment and Plan (1) Sepsis Status: Acute Code(s): A41.9 - SEPSIS, UNSPECIFIED ORGANISM SNOMED Code(s): 04660388 (2) Bacterial endocarditis Status: Acute Code(s): I33.0 - ACUTE AND SUBACUTE INFECTIVE ENDOCARDITIS SNOMED Code(s): 087716754 (3) MRSA bacteremia Status: Acute Code(s): R78.81 - BACTEREMIA; B95.62 - METHICILLIN RESIS STAPH INFCT CAUSING DISEASES CLASSD [id number] SNOMED Code(s): 56507726398254718 (4) Non-pressure chronic ulcer of left ankle with fat layer exposed Status: Acute Code(s): L97.322 - NON-PRESSURE CHRONIC ULCER OF LEFT ANKLE W FAT LAYER EXPOSED SNOMED Code(s): 40957452404661237 Plan: 1patient with MRSA bacteremia secondary tricuspid valve endocarditis related to his IV drug use with evidence of large vegetation and septic emboli likely complicated endocarditis 2left lower extremity wound with no significant slough tissue surrounding redness or foul-smelling drainage 3blood culture repeated document clearance of bacteremia 4vancomycin pharmacy to dose with a target trough of 15 while watching kidney function and Vanco trough closely. 5local wound care to the left lower extremity wound with the dry Aquacel silver dressing change every 48 hour We will follow on clinical condition and cultures to further adjust medication if needed Thank you for this consultation we will follow the patient along with you Dictation was produced using [employer] dictation software. please excuse any grammatical, word or spelling errors. Time with Patient: Greater than 30
[2023-03-06] MEDS: KETOROLAC 15 MG/ML 1 ML VIAL IVP PRN ×4 (01:58→21:30)
[2023-03-06] MEDS: ACETAMINOPHEN TAB 325 MG TAB PO PRN (04:04)
[2023-03-06] MEDS: SODIUM CHLORIDE 0.9% 1,000 ML IV SCH ×3 (04:13→16:41)
[2023-03-06 04:30] LABS: African American GFR (CKD) >90 (>60 ml/min/1.73 sqM); Anion Gap 4 mmol/L; Blood Urea Nitrogen 10 mg/dL (9-20); Carbon Dioxide 17 mmol/L (22-30); Chloride 112 mmol/L (98-107); Glucose 103 mg/dL (74-99); Magnesium 1.8 mg/dL (1.6-2.3); Non-African American GFR(CKD) >90 (>60 ml/min/1.73 sqM); Phosphorus 3.1 mg/dL (2.5-4.5); Potassium 4.1 mmol/L (3.5-5.1); Sodium 133 mmol/L (137-145)
[2023-03-06 04:32] LABS: Anisocytosis Slight; Basophils % (A) 0 %; Eosinophils # (A) 0.2 k/uL (0-0.7); Eosinophils % (A) 1 %; Hypochromasia Slight; Lymphocytes # (A) 3.3 k/uL (1.0-4.8); Lymphocytes % (A) 17 %; MCH 29.1 pg (25.0-35.0); MCHC 32.8 g/dL (31.0-37.0); MCV 88.7 fL (80.0-100.0); Mean Platelet Volume 7.6; Monocytes # (A) 0.5 k/uL (0-1.0); Monocytes % (A) 3 %; Neutrophils # (A) 15.3 k/uL (1.3-7.7); Neutrophils % (A) 78 %; Platelet Count 219 k/uL (150-450); RBC 2.59 m/uL (4.30-5.90); RDW 17.6 % (11.5-15.5); WBC 19.6 k/uL (3.8-10.6)
[2023-03-06 04:46] LABS: C Reactive Protein 15.9 mg/dL (<1.0)
[2023-03-06 05:35] LABS: HGB 7.5 gm/dL (13.0-17.5)
--- NOTE | 2023-03-06 07:44 | P.PN ---
Subjective Progress Note Date: 03/06/23 PROGRESS NOTE The patient is a 27-year-old male with history of heroin use, last used on February 27 who was transferred from [facility]. He was admitted recently with evidence of infection in his foot with abscess. He was found to have tricuspid aortic valve vegetation and pulmonary septic embolization. He has symptoms of dyspnea but no chest discomfort. He denies any dizziness, palpi tations or syncope. He uses tobacco. He has no history of hypertension, hyperlipidemia or diabetes. March 06: He is feeling well overall, he denies any chest discomfort, dizziness or palpitations. He denies any nausea. He is in sinus tachycardia. His blood pressure is stable. He is scheduled to undergo a REY today and has been evaluated by the cardiothoracic team for possible intervention. He continues to be on vancomycin. He has low-grade fever. His echocardiogram done prior to transfer showed a large tricuspid valve presentations with moderate to severe tricuspid regurgitation. His cultures showed staph aureus methicillin resistant. His chest x-ray is consistent with septic embolization. Medications: Vancomycin, Ativan PHYSICAL EXAMINATION: Blood pressure 128/80 heart rate 120, temperature 101.4 LUNGS: Decreased air exchange HEART: Regular rate and rhythm, S1, S2. No S3. Systolic murmur noted at the right lower sternal border ABDOMEN: Soft, nontender, no organomegaly EXTREMETIES: Dressing on the left foot LAB: WBC 19.6, hemoglobin 7.5, BUN 10, creatinine 0.6 IMPRESSION: 1. 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 Abscess on the foot 3. History of intravenous drug use 4. History of tobacco use PLAN: 1. Plan for REY today, the risks and the complications were discussed with the patient 2. May require transfusion 3. Awaits plan per surgical team for further intervention. With the significant tricuspid regurgitation further intervention on the tricuspid valve may be indicated 4. Prognosis is guarded Objective - Vital Signs Vital signs: Vital Signs Temp 101.4 F H 03/06/23 04:00 Pulse 131 H 03/06/23 07:00 Resp 40 H 03/06/23 07:00 BP 128/83 03/06/23 07:00 Pulse Ox 94 L 03/06/23 07:00 FiO2 Intake & Output 03/05/23 03/06/23 03/06/23 18:59 06:59 18:59 Intake Total 1370 1660 100 Output Total 1025 895 60 Balance 345 765 40 Weight 54.4 kg 67.3 kg Intake: IV 890 1410 100 Invasive Line 1 20 30 Invasive Line 2 20 30 Sodium Chloride 0.9% 1, 850 1100 100 000 ml @ 100 mls/hr IV . Q10H [facility] Rx#:[id number] Vancomycin 1,000 mg In 250 Sodium Chloride 0.9% 250 ml @ 125 mls/hr IVPB Q12HR [facility] Rx#:[id number] Oral 480 250 Output: Urine 1025 895 60 Other: Voiding Method Indwelling Catheter Indwelling Catheter # Bowel Movements 0 - Labs CBC & Chem 7: 03/06/23 04:03 03/06/23 04:03 Labs: Abnormal Lab Results - Last 24 Hours (Table) 03/05/23 03/05/23 03/05/23 Range/Units 11:29 12:32 12:32 WBC 21.9 H (3.8-10.6) k/uL RBC 3.13 L (4.30-5.90) m/uL Hgb 9.0 L D (13.0-17.5) gm/dL Hct 27.4 L (39.0-53.0) % RDW 17.3 H (11.5-15.5) % Neutrophils # 17.7 H (1.3-7.7) k/uL Sodium 132 L (137-145) mmol/L Chloride 112 H (98-107) mmol/L Carbon Dioxide 14 L (22-30) mmol/L Creatinine 0.63 L (0.66-1.25) mg/dL Glucose 130 H (74-99) mg/dL POC Glucose (mg/dL) 175 H (70-110) mg/dL Calcium 6.9 L (8.4-10.2) mg/dL AST 91 H (17-59) U/L ALT 115 H (4-49) U/L Alkaline Phosphatase 267 H (38-126) U/L C-Reactive Protein (<1.0) mg/dL Total Protein 5.5 L (6.3-8.2) g/dL Albumin 1.7 L (3.5-5.0) g/dL Urine Bacteria (None) /hpf Urine Mucus (None) /hpf 03/05/23 03/05/23 03/06/23 Range/Units 12:32 13:21 04:03 WBC (3.8-10.6) k/uL RBC (4.30-5.90) m/uL Hgb (13.0-17.5) gm/dL Hct (39.0-53.0) % RDW (11.5-15.5) % Neutrophils # (1.3-7.7) k/uL Sodium 133 L (137-145) mmol/L Chloride 112 H (98-107) mmol/L Carbon Dioxide 17 L (22-30) mmol/L Creatinine 0.60 L (0.66-1.25) mg/dL Glucose 103 H (74-99) mg/dL POC Glucose (mg/dL) (70-110) mg/dL Calcium 7.0 L 7.0 L (8.4-10.2) mg/dL AST (17-59) U/L ALT (4-49) U/L Alkaline Phosphatase (38-126) U/L C-Reactive Protein 14.9 H 15.9 H (<1.0) mg/dL Total Protein (6.3-8.2) g/dL Albumin (3.5-5.0) g/dL Urine Bacteria Rare H (None) /hpf Urine Mucus Few H (None) /hpf 03/06/23 Range/Units 04:03 WBC 19.6 H (3.8-10.6) k/uL RBC 2.59 L (4.30-5.90) m/uL Hgb 7.5 L D (13.0-17.5) gm/dL Hct 23.0 L (39.0-53.0) % RDW 17.6 H (11.5-15.5) % Neutrophils # 15.3 H (1.3-7.7) k/uL Sodium (137-145) mmol/L Chloride (98-107) mmol/L Carbon Dioxide (22-30) mmol/L Creatinine (0.66-1.25) mg/dL Glucose (74-99) mg/dL POC Glucose (mg/dL) (70-110) mg/dL Calcium (8.4-10.2) mg/dL AST (17-59) U/L ALT (4-49) U/L Alkaline Phosphatase (38-126) U/L C-Reactive Protein (<1.0) mg/dL Total Protein (6.3-8.2) g/dL Albumin (3.5-5.0) g/dL Urine Bacteria (None) /hpf Urine Mucus (None) /hpf
[2023-03-06] MEDS ORDERED: VANCOMYCIN TROUGH DUE 1 EACH MISC MISCELLANE ONE (08:00)
[2023-03-06] MEDS: PANTOPRAZOLE 40 MG/10 ML VIAL IV SCH (08:24)
[2023-03-06] MEDS: HEPARIN SODIUM,PORCINE 5,000 UNIT/ML 1 ML VIAL SQ SCH ×2 (08:24→21:30)
[2023-03-06] MEDS: VANCOMYCIN 1,000 MG in SODIUM CHLORIDE 0.9% 250 ML IVPB SCH ×3 (09:15→23:41)
--- NOTE | 2023-03-06 09:33 | P.PN ---
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 Past medical history significant for heroin IV drug abuse, hepatitis C, ADHD, depression, sepsis, abscess of the left lower leg, and chronic nicotine abuse with vaping. The patient was seen and examined in follow-up today 03/06/2023 at his bedside in the intensive care unit. Patient is currently lying in bed, is awake, alert, oriented 3 and in no acute distress. Patient is complaining of feeling short of breath this morning, the patient is tachypneic with respirations 30/m, he is complaining of some generalized pain to his chest and abdomen and is also complaining of a headache. Oxygen saturation are 96% on 2 L nasal cannula. Bedside telemetry showing sinus tachycardia heart rate 135 BPM. 0.9% normal saline is infusing at 100 mL per hour. He remains hemodynamically stable and is currently on no inotropic or pressor support. The patient did undergo a transthoracic 2-D echocardiogram at [facility] on 03/02/2023 which demonstrated a normal left ventricular size with mild global decrease in contractility, the left ventricular systolic function to be normal with an ejection fraction of 50-55%, trace aortic valve regurgitation, trace mitral valve regurgitation, moderate to severe tricuspid valve regurgitation with an RVSP of 60 mmHg and a large vegetation on the tricuspid valve, and it also demonstrated mild to moderate pulmonic valve regurgitation. The patient is scheduled to undergo a transesophageal echocardiogram today to be performed by cardiology. Objective - Vital Signs Vital signs: Vital Signs Temp 98.2 F 03/06/23 08:00 Pulse 126 H 03/06/23 09:00 Resp 33 H 03/06/23 09:00 BP 120/87 03/06/23 09:00 Pulse Ox 96 03/06/23 09:00 FiO2 Intake & Output 03/05/23 03/06/23 03/06/23 18:59 06:59 18:59 Intake Total 1370 1660 140 Output Total 1025 895 60 Balance 345 765 80 Weight 54.4 kg 67.3 kg Intake: IV 890 1410 140 Invasive Line 1 20 30 40 Invasive Line 2 20 30 Sodium Chloride 0.9% 1, 850 1100 100 000 ml @ 100 mls/hr IV . Q10H [facility] Rx#:[id number] Vancomycin 1,000 mg In 250 Sodium Chloride 0.9% 250 ml @ 125 mls/hr IVPB Q12HR [facility] Rx#:[id number] Oral 480 250 Output: Urine 1025 895 60 Other: Voiding Method Indwelling Catheter Indwelling Catheter Indwelling Catheter # Bowel Movements 0 - Exam CONSTITUTIONAL: Laying in bed in the intensive care unit, appears comfortable, cooperative, no apparent acute distress. HEENT: Neck is supple, no JVD, no lymphadenopathy. RESPIRATORY: Lungs sounds with few scattered crackles throughout, diminished to his bilateral bases. Respirations are symmetrical and tachypneic. Currently on 2 L nasal cannula with oxygen saturations 96%. Strong cough. CARDIOVASCULAR: Regular rhythm and tachycardic rate. S1 and S2 present, negative for S3, gallop or murmur. Palpable peripheral pulses bilaterally, no edema to his bilateral lower extremities. No calf pain or tenderness noted. GASTROINTESTINAL: Abdomen soft, nontender, nondistended. Active bowel sounds present 4 quadrants. Passing flatus. No guarding or rigidity. GENITOURINARY: Anderson present draining clear, yellow urine. Urine output 395 mL in the last 8 hours. INTEGUMENTARY: Skin is warm and dry with no evidence of clubbing or cyanosis. Dressing is clean, dry and intact to his left ankle. NEUROLOGIC: Cranial nerves II through XII intact. No focal deficits. MUSKULOSKELETAL: Able to move all extremities, strength equal bilaterally, generalized weakness. PSYCHIATRIC: Alert and oriented to person place and time, appropriate affect, intact judgment and insight. - Allied health notes Allied health notes reviewed: nursing - Labs CBC & Chem 7: 03/07/23 04:49 03/07/23 04:49 Labs: Abnormal Lab Results - Last 24 Hours (Table) 03/05/23 03/05/23 03/05/23 Range/Units 11:29 12:32 12:32 WBC 21.9 H (3.8-10.6) k/uL RBC 3.13 L (4.30-5.90) m/uL Hgb 9.0 L D (13.0-17.5) gm/dL Hct 27.4 L (39.0-53.0) % RDW 17.3 H (11.5-15.5) % Neutrophils # 17.7 H (1.3-7.7) k/uL Sodium 132 L (137-145) mmol/L Chloride 112 H (98-107) mmol/L Carbon Dioxide 14 L (22-30) mmol/L Creatinine 0.63 L (0.66-1.25) mg/dL Glucose 130 H (74-99) mg/dL POC Glucose (mg/dL) 175 H (70-110) mg/dL Calcium 6.9 L (8.4-10.2) mg/dL AST 91 H (17-59) U/L ALT 115 H (4-49) U/L Alkaline Phosphatase 267 H (38-126) U/L C-Reactive Protein (<1.0) mg/dL Total Protein 5.5 L (6.3-8.2) g/dL Albumin 1.7 L (3.5-5.0) g/dL Urine Bacteria (None) /hpf Urine Mucus (None) /hpf 03/05/23 03/05/23 03/06/23 Range/Units 12:32 13:21 04:03 WBC (3.8-10.6) k/uL RBC (4.30-5.90) m/uL Hgb (13.0-17.5) gm/dL Hct (39.0-53.0) % RDW (11.5-15.5) % Neutrophils # (1.3-7.7) k/uL Sodium 133 L (137-145) mmol/L Chloride 112 H (98-107) mmol/L Carbon Dioxide 17 L (22-30) mmol/L Creatinine 0.60 L (0.66-1.25) mg/dL Glucose 103 H (74-99) mg/dL POC Glucose (mg/dL) (70-110) mg/dL Calcium 7.0 L 7.0 L (8.4-10.2) mg/dL AST (17-59) U/L ALT (4-49) U/L Alkaline Phosphatase (38-126) U/L C-Reactive Protein 14.9 H 15.9 H (<1.0) mg/dL Total Protein (6.3-8.2) g/dL Albumin (3.5-5.0) g/dL Urine Bacteria Rare H (None) /hpf Urine Mucus Few H (None) /hpf 03/06/23 Range/Units 04:03 WBC 19.6 H (3.8-10.6) k/uL RBC 2.59 L (4.30-5.90) m/uL Hgb 7.5 L D (13.0-17.5) gm/dL Hct 23.0 L (39.0-53.0) % RDW 17.6 H (11.5-15.5) % Neutrophils # 15.3 H (1.3-7.7) k/uL Sodium (137-145) mmol/L Chloride (98-107) mmol/L Carbon Dioxide (22-30) mmol/L Creatinine (0.66-1.25) mg/dL Glucose (74-99) mg/dL POC Glucose (mg/dL) (70-110) mg/dL Calcium (8.4-10.2) mg/dL AST (17-59) U/L ALT (4-49) U/L Alkaline Phosphatase (38-126) U/L C-Reactive Protein (<1.0) mg/dL Total Protein (6.3-8.2) g/dL Albumin (3.5-5.0) g/dL Urine Bacteria (None) /hpf Urine Mucus (None) /hpf Assessment and Plan Assessment: Transthoracic 2-D echocardiogram showed a large vegetation to his tricuspid valve with moderate to severe tricuspid valve regurgitation Sepsis with positive blood culture showing MRSA, treated with vancomycin Abscess to his left lateral malleolus, status post I&D IV drug use, heroin and fentanyl Hepatitis C History of delirium Chronic ongoing tobacco dependence with vaping Plan: Dr. Park and Dr. Hill discussed possible transfer to [facility] for possible Angio-Vac procedure. The patient is scheduled for transesophageal echocardiogram today to be deformed by cardiology. Anabolic management per infectious disease recommendations. Pain control per current when necessary orders. More recommendations to follow based on patient's clinical course. Time with Patient: Less than 30
[2023-03-06] MEDS ORDERED: MIDAZOLAM 1 MG/ML 5 ML VIAL IV STA (09:58)
[2023-03-06] MEDS ORDERED: fentaNYL (PF) 50 MCG/ML 2 ML AMP IVP STA (09:59)
[2023-03-06 11:06] LABS: Erythrocyte Sedimentation Rate 27 mm/Hr (0-15)
--- NOTE | 2023-03-06 11:33 | P.PN ---
Subjective Progress Note Date: 03/06/23 Principal diagnosis: Endocarditis. Pulmonary consult dated 03/05/2023. This is a 27-year-old male who was transferred over from [facility], today, to [facility]. I was called by cardiology, who wanted the patient transferred over, because of endocarditis involving the tricuspid valve. The patient was apparently seen initially, on February 16, at [facility] for left ankle cellulitis. Patient was seen and, treated, surgically, with a wound VAC placement, and then left AGAINST MEDICAL ADVICE. The patient was seen subsequent to that [facility] on February 23. He went back to [facility], on February 27, apparently, under the effects of polysubstance overdose, and was admitted to the hospital. The patient has a history of ADHD, hepatitis C, IVDA, and depression. The patient's currently on room air, receiving vancomycin for his methicillin- resistant staph aureus sepsis, and endocarditis, and getting saline at 100 mL an hour. Laboratory data here includes a white count of 21.9, hemoglobin 9, hematocrit 27.4, and platelet count of 94,000. Sodium 132, potassium 4, chlorides 112, CO2 14, BUN 11, creatinine 0.63. Glucose 130. AST is 91, ALT is 115, and albumin is only 1.7. Chest x-ray shows too many to count cavitary lesions bilaterally. Progress note dated 03/06/2023. This is a 27-year-old male who was transferred from [facility] yesterday, because of tricuspid valve endocarditis. The patient's blood cultures were positive multiple times for methicillin-resistant staph aureus. The patient is on IV vancomycin. He is getting 2 L of oxygen, and saline at 100 mL an hour. The plan is to do a transesophageal echocardiogram today, and then transferred the patient to [facility], for a ANGIOVAC procedure. Clinically, the patient is stable. White count 19.6, hemoglobin 7.5, hematocrit 23, and a normal platelet count. Sodium 133, potassium 4.1, chlorides 112, CO2 17, the 110, and creatinine 0.6. Objective - Vital Signs Vital signs: Vital Signs Temp 98.2 F 03/06/23 08:00 Pulse 122 H 03/06/23 10:00 Resp 32 H 03/06/23 10:00 BP 125/82 03/06/23 10:00 Pulse Ox 97 03/06/23 10:00 FiO2 Intake & Output 03/05/23 03/06/23 03/06/23 18:59 06:59 18:59 Intake Total 1370 1660 150 Output Total 1025 895 60 Balance 345 765 90 Weight 54.4 kg 67.3 kg Intake: IV 890 1410 150 Invasive Line 1 20 30 40 Invasive Line 2 20 30 10 Sodium Chloride 0.9% 1, 850 1100 100 000 ml @ 100 mls/hr IV . Q10H [facility] Rx#:[id number] Vancomycin 1,000 mg In 250 Sodium Chloride 0.9% 250 ml @ 125 mls/hr IVPB Q12HR [facility] Rx#:[id number] Oral 480 250 Output: Urine 1025 895 60 Other: Voiding Method Indwelling Catheter Indwelling Catheter Indwelling Catheter # Bowel Movements 0 - Exam No acute distress, oriented 3. 2 L saturation is 97%. HEENT examination is grossly unremarkable. Neck supple. Full range of motion. No adenopathy thyromegaly or neck vein distention. Cardiovascular examination reveals regular rhythm rate. S1-S2 normal. No S3 or S4. No discernible murmur noted. Heart rate 122 bpm. Lungs reveal scattered bilateral rhonchi. No wheezes or crackles. 2 L saturation 97%. Abdomen soft bowel sounds are heard. No masses or tenderness. Extremities are intact. No cyanosis clubbing or edema. Left ankle wound, partially open, with sutures in place. Skin is without rash or lesion. Neurologic examination is brief but nonfocal. - Labs CBC & Chem 7: 03/06/23 04:03 03/06/23 04:03 Labs: Abnormal Lab Results - Last 24 Hours (Table) 03/05/23 03/05/23 03/05/23 Range/Units 11:29 12:32 12:32 WBC 21.9 H (3.8-10.6) k/uL RBC 3.13 L (4.30-5.90) m/uL Hgb 9.0 L D (13.0-17.5) gm/dL Hct 27.4 L (39.0-53.0) % RDW 17.3 H (11.5-15.5) % Neutrophils # 17.7 H (1.3-7.7) k/uL ESR (0-15) mm/Hr Sodium 132 L (137-145) mmol/L Chloride 112 H (98-107) mmol/L Carbon Dioxide 14 L (22-30) mmol/L Creatinine 0.63 L (0.66-1.25) mg/dL Glucose 130 H (74-99) mg/dL POC Glucose (mg/dL) 175 H (70-110) mg/dL Calcium 6.9 L (8.4-10.2) mg/dL AST 91 H (17-59) U/L ALT 115 H (4-49) U/L Alkaline Phosphatase 267 H (38-126) U/L C-Reactive Protein (<1.0) mg/dL Total Protein 5.5 L (6.3-8.2) g/dL Albumin 1.7 L (3.5-5.0) g/dL Urine Bacteria (None) /hpf Urine Mucus (None) /hpf 03/05/23 03/05/23 03/06/23 Range/Units 12:32 13:21 04:03 WBC (3.8-10.6) k/uL RBC (4.30-5.90) m/uL Hgb (13.0-17.5) gm/dL Hct (39.0-53.0) % RDW (11.5-15.5) % Neutrophils # (1.3-7.7) k/uL ESR (0-15) mm/Hr Sodium 133 L (137-145) mmol/L Chloride 112 H (98-107) mmol/L Carbon Dioxide 17 L (22-30) mmol/L Creatinine 0.60 L (0.66-1.25) mg/dL Glucose 103 H (74-99) mg/dL POC Glucose (mg/dL) (70-110) mg/dL Calcium 7.0 L 7.0 L (8.4-10.2) mg/dL AST (17-59) U/L ALT (4-49) U/L Alkaline Phosphatase (38-126) U/L C-Reactive Protein 14.9 H 15.9 H (<1.0) mg/dL Total Protein (6.3-8.2) g/dL Albumin (3.5-5.0) g/dL Urine Bacteria Rare H (None) /hpf Urine Mucus Few H (None) /hpf 03/06/23 Range/Units 04:03 WBC 19.6 H (3.8-10.6) k/uL RBC 2.59 L (4.30-5.90) m/uL Hgb 7.5 L D (13.0-17.5) gm/dL Hct 23.0 L (39.0-53.0) % RDW 17.6 H (11.5-15.5) % Neutrophils # 15.3 H (1.3-7.7) k/uL ESR 27 H (0-15) mm/Hr Sodium (137-145) mmol/L Chloride (98-107) mmol/L Carbon Dioxide (22-30) mmol/L Creatinine (0.66-1.25) mg/dL Glucose (74-99) mg/dL POC Glucose (mg/dL) (70-110) mg/dL Calcium (8.4-10.2) mg/dL AST (17-59) U/L ALT (4-49) U/L Alkaline Phosphatase (38-126) U/L C-Reactive Protein (<1.0) mg/dL Total Protein (6.3-8.2) g/dL Albumin (3.5-5.0) g/dL Urine Bacteria (None) /hpf Urine Mucus (None) /hpf Assessment and Plan Assessment: Methicillin-resistant staph aureus sepsis, with tricuspid valve endocarditis, and multiple bilateral cavitary pulmonary lesions. History of intravenous drug abuse. History of depression. History of ADHD. Left ankle cellulitis. Status post 1 unit of PRBCs, for anemia. Plan: Plan dated 03/05/2023. The patient is transferred over from [facility], to [facility]. The patient will be seen by cardiology, and also be seen by cardiothoracic surgery. I did speak to cardiology earlier today, and except for the patient into the intensive care unit. The patient should be started back on vancomycin. The patient's chest x-ray is quite concerning, as it has multiple bilateral cavitary lesions. There are too many to count. Additional recommendations and suggestions are forthcoming. Prognosis is guarded. We will continue to follow make recommendations along the way. Plan dated 03/06/2023. The patient is going to have a transesophageal echocardiogram. Subsequent to that, the patient is going to be transferred to [facility], for a ANGIOVAC procedure. The patient has been stable overnight. He is currently on 2 L of oxygen. He continues on vancomycin. He is getting saline at 100 mL an hour. We will continue to follow the patient, and make recommendations along the way. His chest x-ray shows multiple comminuted count bilateral cavitary lesion, consistent with septic emboli. Time with Patient: Greater than 30
--- NOTE | 2023-03-06 13:12 | P.TEE ---
Date of Procedure: 03/06/23 Description of Procedure(s): Transesophageal Echocardiogram Report Procedure performed: 1. Transesophageal Echocardiogram with color flow doppler, pulsed wave doppler and continuous wave doppler, 2. Bubble Study 3. Moderate conscious sedation. Sedation time [20] mins. Indications: Infective endocarditis Consent: I have discussed the risks, benefits and alternative therapies for the above-mentioned procedure. The patient has indicated understanding and acceptance of the risks of the procedure. Signed consent was obtained and was placed in the paper chart. Procedural Steps: Timeout was performed in usual fashion. Patient's heart rate, blood pressure, oxygen saturation and ECG were monitored. Benzocaine was sprayed liberally in the back of the throat. Bite block was placed between the jaw. 75 mg of Versed and 4 mcg of Fentanyl were administered intravenously. After achieving appropriate moderate conscious sedation, REY probe was advanced without difficulty and without any immediate complications to the esophagus. REY study was performed with color flow doppler, pulsed wave doppler and continuous wave doppler. Agitated saline bubbles were injected to assess for any intra- atrial shunt. The probe was then removed. Patient tolerated the procedure well. Patient was transferred to the post procedure area in stable and satisfactory condition. Throughout the procedure patient's heart rate, blood pressure, oxygen saturation and ECG were monitored. Total sedation time 20 mins. Complications: none FINDINGS Left Atrium: Normal Left atrial size. No evidence of mass or thrombus seen Left Atrial Appendage: No evidence of thrombus or mass seen in [place] Inter atrial septum: Intact inter-atrial septum. No evidence of atrial septal defect on doppler. Bubble study was suboptimal. Left Ventricle: Normal global LV size and systolic function Right Atrium: Moderate RA dilatation. Right Ventricle: Normal global RV size and systolic function Aortic Valve: Structurally normal Trileaflet, no significant calcification. No significant stenosis or regurgitation on color doppler assessment. Mitral Valve: Structurally normal. No evidence of prolapse. No evidence of stenosis or regurgitation on doppler assessment Pulmonic Valve: No significant evidence of endocarditis. Tricuspid Valve: There is evidence of infective endocarditis involving both anterior and septal leaflet. The leaflet appears to be thickened and inflamed with vegetation measuring more than 1.5 cm. There is also evidence of flail vegetation going into the RVOT. There is fulminant tricuspid regurgitation. Ascending aorta, Aortic root and Aortic arch: Normal size, no significant calcification or atheroma. There is small to moderate pericardial effusion CONCLUSION: Infective endocarditis involving tricuspid valve >1.5cm Moderate RA dilatation Fulminant tricuspid regurgitation Small to moderate pericardial effusion No evidence of endocarditis involvement of other valves Dr Kaz Ramirez MD [facility]
--- NOTE | 2023-03-06 13:31 | P.CNOR ---
History of Present Illness - HPI Consult date: 03/06/23 History of present illness: This patient is a 27- year old male with a past medical history of hepatitis C, IVDA that was transferred to [facility] yesterday 03/05/23 due to endocarditis. History is obtained per chart. Patient was initially admitted to [facility] in January and underwent an I&D with wound vac buck cement for cellulitis/abscess by Dr. Hernandez. Patient apparently left AMA at that time. He presented to [facility] on 02/23, and again [facility] on 02/27. He was admitted to [facility] and subsequently transferred to our facility. Patient is currently admitted to the ICU and orthopedic surgery is consulted regarding his left ankle. Patient is examined bedside this afternoon with Dr. Campos. He has no complaints of pain in the left ankle. He is scheduled for REY today and possibly transfer to [facility]. Past Medical History Past Medical History: Liver Disease Additional Past Medical History / Comment(s): Hep C History of Any Multi-Drug Resistant Organisms: None Reported Year Discovered:: 02/16/23 MDRO Source:: Blood, Left ankle wound Past Surgical History: Orthopedic Surgery Additional Past Surgical History / Comment(s): I & D left ankle 02/16/23 Past Anesthesia/Blood Transfusion Reactions: No Reported Reaction Past Psychological History: Depression Smoking Status: Former smoker, Vaper Past Alcohol Use History: None Reported Past Drug Use History: Heroin Additional Drug Use History / Comment(s): Heroin and fentanyl use - Past Family History Mother History Unknown: Yes Additional Family Medical History / Comment(s): Mother from overdose, age unknown. Father History Unknown: Yes Additional Family Medical History / Comment(s): Patient never met his father. Medications and Allergies Home Medications Medication Instructions Recorded Confirmed Type No Known Home Medications 03/05/23 03/05/23 History Allergies Allergy/AdvReac Type Severity Reaction Status Date / Time cephalexin [From Keflex] Allergy Rash/Hives Verified 03/05/23 12:45 sulfamethoxazole Allergy Rash/Hives, Verified 03/05/23 12:32 [From Bactrim] Swelling trimethoprim [From Bactrim] Allergy Rash/Hives, Verified 03/05/23 12:32 Swelling Physical Examination On examination, patient is lying in bed in no apparent distress. He is alert and orientated x3. His head appears normocephalic and atraumatic. His breathing appears non-labored. Focused examination of the left ankle is conducted. On inspection of the left ankle, there is a dressing in place wrapped with Coban. Coban taken down and reveals a non-healing incision at the lateral ankle with skin edges that are not well-approximated. No surrounding erythema, drainage, fluctuance. Patient has painless ROM of the ankle. Motor and sensory function is intact of the left lower extremity. The foot is warm and well perfused. Results - Labs Labs: Abnormal Lab Results - Last 24 Hours (Table) 03/05/23 03/05/23 03/05/23 Range/Units 12:32 12:32 12:32 WBC 21.9 H (3.8-10.6) k/uL RBC 3.13 L (4.30-5.90) m/uL Hgb 9.0 L D (13.0-17.5) gm/dL Hct 27.4 L (39.0-53.0) % RDW 17.3 H (11.5-15.5) % Neutrophils # 17.7 H (1.3-7.7) k/uL ESR (0-15) mm/Hr Sodium 132 L (137-145) mmol/L Chloride 112 H (98-107) mmol/L Carbon Dioxide 14 L (22-30) mmol/L Creatinine 0.63 L (0.66-1.25) mg/dL Glucose 130 H (74-99) mg/dL Calcium 6.9 L 7.0 L (8.4-10.2) mg/dL AST 91 H (17-59) U/L ALT 115 H (4-49) U/L Alkaline Phosphatase 267 H (38-126) U/L C-Reactive Protein 14.9 H (<1.0) mg/dL Total Protein 5.5 L (6.3-8.2) g/dL Albumin 1.7 L (3.5-5.0) g/dL Urine Bacteria (None) /hpf Urine Mucus (None) /hpf 03/05/23 03/06/23 03/06/23 Range/Units 13:21 04:03 04:03 WBC 19.6 H (3.8-10.6) k/uL RBC 2.59 L (4.30-5.90) m/uL Hgb 7.5 L D (13.0-17.5) gm/dL Hct 23.0 L (39.0-53.0) % RDW 17.6 H (11.5-15.5) % Neutrophils # 15.3 H (1.3-7.7) k/uL ESR 27 H (0-15) mm/Hr Sodium 133 L (137-145) mmol/L Chloride 112 H (98-107) mmol/L Carbon Dioxide 17 L (22-30) mmol/L Creatinine 0.60 L (0.66-1.25) mg/dL Glucose 103 H (74-99) mg/dL Calcium 7.0 L (8.4-10.2) mg/dL AST (17-59) U/L ALT (4-49) U/L Alkaline Phosphatase (38-126) U/L C-Reactive Protein 15.9 H (<1.0) mg/dL Total Protein (6.3-8.2) g/dL Albumin (3.5-5.0) g/dL Urine Bacteria Rare H (None) /hpf Urine Mucus Few H (None) /hpf H & H 03/05/23 03/06/23 Range/Units 12:32 04:03 Hgb 9.0 L D 7.5 L D (13.0-17.5) gm/dL Hct 27.4 L 23.0 L (39.0-53.0) % Coagulation 03/05/23 Range/Units 12:32 INR 1.1 (<1.2) Result Diagrams: 03/06/23 04:03 03/06/23 04:03 Assessment and Plan Assessment: Left ankle delayed healing incision after I&D for abscess in January at an outside facility Plan: - We have no plans for any surgical intervention. Recommend continued local wound care for delayed healing incision at the recommendations of Dr. Espinoza and the wound care team. We will sign off at this time.
--- NOTE | 2023-03-06 14:26 | P.PN ---
Subjective Progress Note Date: 03/06/23 Principal diagnosis: MRSA bacteremia and tricuspid valve endocarditis Patient is a 27-year-old male with a past medical history significant for IV drug use patient apparently was recently admitted at [facility] with left lower leg abscess s/p surgical drainage, patient apparently left AGAINST MEDICAL ADVICE and subsequently presenting back to the hospital with delirium weakness fever and chills , patient did have evidence of MRSA bacteremia concerning for tricuspid valve endocarditis. On today's evaluation that is 03/06/2023, the patient did have a fever of 101.4F around for the same the patient is afebrile since then the patient is breathing comfortably on room air, the patient denies chest pain, or worsening shortness of breath or cough, patient denies abdominal pain, no nausea/vomiting and no diarrhea Patient with white count of 19.6, creatinine 0.60 Objective - Vital Signs Vital signs: Vital Signs Temp 98.2 F 03/06/23 08:00 Pulse 122 H 03/06/23 10:00 Resp 32 H 03/06/23 10:00 BP 125/82 03/06/23 10:00 Pulse Ox 97 03/06/23 10:00 FiO2 Intake & Output 03/05/23 03/06/23 03/06/23 18:59 06:59 18:59 Intake Total 1370 1660 150 Output Total 1025 895 60 Balance 345 765 90 Weight 54.4 kg 67.3 kg Intake: IV 890 1410 150 Invasive Line 1 20 30 40 Invasive Line 2 20 30 10 Sodium Chloride 0.9% 1, 850 1100 100 000 ml @ 100 mls/hr IV . Q10H [facility] Rx#:[id number] Vancomycin 1,000 mg In 250 Sodium Chloride 0.9% 250 ml @ 125 mls/hr IVPB Q12HR [facility] Rx#:[id number] Oral 480 250 Output: Urine 1025 895 60 Other: Voiding Method Indwelling Catheter Indwelling Catheter Indwelling Catheter # Bowel Movements 0 - Exam GENERAL DESCRIPTION: Middle-aged male lying in bed in no distress RESPIRATORY SYSTEM: Unlabored breathing , decreased breath sounds at bases HEART: S1 S2 regular rate and rhythm , ABDOMEN: Soft , no tenderness EXTREMITIES: Left leg wound is currently dressed - Labs CBC & Chem 7: 03/06/23 04:03 03/06/23 04:03 Labs: Abnormal Lab Results - Last 24 Hours (Table) 03/05/23 03/05/23 03/05/23 Range/Units 11:29 12:32 12:32 WBC 21.9 H (3.8-10.6) k/uL RBC 3.13 L (4.30-5.90) m/uL Hgb 9.0 L D (13.0-17.5) gm/dL Hct 27.4 L (39.0-53.0) % RDW 17.3 H (11.5-15.5) % Neutrophils # 17.7 H (1.3-7.7) k/uL Sodium 132 L (137-145) mmol/L Chloride 112 H (98-107) mmol/L Carbon Dioxide 14 L (22-30) mmol/L Creatinine 0.63 L (0.66-1.25) mg/dL Glucose 130 H (74-99) mg/dL POC Glucose (mg/dL) 175 H (70-110) mg/dL Calcium 6.9 L (8.4-10.2) mg/dL AST 91 H (17-59) U/L ALT 115 H (4-49) U/L Alkaline Phosphatase 267 H (38-126) U/L C-Reactive Protein (<1.0) mg/dL Total Protein 5.5 L (6.3-8.2) g/dL Albumin 1.7 L (3.5-5.0) g/dL Urine Bacteria (None) /hpf Urine Mucus (None) /hpf 03/05/23 03/05/23 03/06/23 Range/Units 12:32 13:21 04:03 WBC (3.8-10.6) k/uL RBC (4.30-5.90) m/uL Hgb (13.0-17.5) gm/dL Hct (39.0-53.0) % RDW (11.5-15.5) % Neutrophils # (1.3-7.7) k/uL Sodium 133 L (137-145) mmol/L Chloride 112 H (98-107) mmol/L Carbon Dioxide 17 L (22-30) mmol/L Creatinine 0.60 L (0.66-1.25) mg/dL Glucose 103 H (74-99) mg/dL POC Glucose (mg/dL) (70-110) mg/dL Calcium 7.0 L 7.0 L (8.4-10.2) mg/dL AST (17-59) U/L ALT (4-49) U/L Alkaline Phosphatase (38-126) U/L C-Reactive Protein 14.9 H 15.9 H (<1.0) mg/dL Total Protein (6.3-8.2) g/dL Albumin (3.5-5.0) g/dL Urine Bacteria Rare H (None) /hpf Urine Mucus Few H (None) /hpf 03/06/23 Range/Units 04:03 WBC 19.6 H (3.8-10.6) k/uL RBC 2.59 L (4.30-5.90) m/uL Hgb 7.5 L D (13.0-17.5) gm/dL Hct 23.0 L (39.0-53.0) % RDW 17.6 H (11.5-15.5) % Neutrophils # 15.3 H (1.3-7.7) k/uL Sodium (137-145) mmol/L Chloride (98-107) mmol/L Carbon Dioxide (22-30) mmol/L Creatinine (0.66-1.25) mg/dL Glucose (74-99) mg/dL POC Glucose (mg/dL) (70-110) mg/dL Calcium (8.4-10.2) mg/dL AST (17-59) U/L ALT (4-49) U/L Alkaline Phosphatase (38-126) U/L C-Reactive Protein (<1.0) mg/dL Total Protein (6.3-8.2) g/dL Albumin (3.5-5.0) g/dL Urine Bacteria (None) /hpf Urine Mucus (None) /hpf Assessment and Plan (1) MRSA bacteremia Current Visit: Yes Status: Acute Code(s): R78.81 - BACTEREMIA; B95.62 - METHICILLIN RESIS STAPH INFCT CAUSING DISEASES [facility] SNOMED Code(s): 85037860580296700 (2) Bacterial endocarditis Current Visit: Yes Status: Acute Code(s): I33.0 - ACUTE AND SUBACUTE INFECTIVE ENDOCARDITIS SNOMED Code(s): 757590694 (3) Non-pressure chronic ulcer of left ankle with fat layer exposed Current Visit: Yes Status: Acute Code(s): L97.322 - NON-PRESSURE CHRONIC ULCER OF LEFT ANKLE W FAT LAYER EXPOSED SNOMED Code(s): 73798381817986227 Plan: 1patient with MRSA bacteremia secondary tricuspid valve endocarditis related to his IV drug use with evidence of large vegetation and septic emboli likely complicated endocarditis 2left lower extremity wound with no significant slough tissue surrounding redness or foul-smelling drainage 3blood culture has been repeated document clearance of bacteremia 4patient to continue vancomycin pharmacy to dose with a target trough of 15 while watching kidney function and Vanco trough closely. 5local wound care to the left lower extremity wound with the dry Aquacel silver dressing change every 48 hour Possible transfer to [facility] for angiovac procedure Dictation was produced using [email or web address] dictation software. please excuse any grammatical, word or spelling errors. Time with Patient: Less than 30
[2023-03-06] MEDS: LORazepam 2 MG/ML INJ IV PRN ×2 (14:58→19:52)
[2023-03-06] MEDS: COLLAGENASE 250 UNIT/GM OINTMENT 30 GM TUBE TOPICAL SCH (15:00)
[2023-03-06] MEDS: ZOLPIDEM 5 MG TAB PO PRN (23:41)
[2023-03-07] MEDS: ACETAMINOPHEN TAB 325 MG TAB PO PRN ×4 (00:20→21:17)
[2023-03-07] MEDS: SODIUM CHLORIDE 0.9% 1,000 ML IV SCH ×3 (02:29→23:01)
[2023-03-07] MEDS: KETOROLAC 15 MG/ML 1 ML VIAL IVP PRN ×4 (03:31→22:33)
[2023-03-07 06:47] LABS: Anisocytosis Slight; Basophils % (A) 0 %; Eosinophils # (A) 0.1 k/uL (0-0.7); Eosinophils % (A) 1 %; HCT 22.2 % (39.0-53.0); Hypochromasia Moderate; Lymphocytes # (A) 3.7 k/uL (1.0-4.8); Lymphocytes % (A) 18 %; MCH 28.5 pg (25.0-35.0); MCHC 31.6 g/dL (31.0-37.0); MCV 90.2 fL (80.0-100.0); Mean Platelet Volume 8.3; Monocytes # (A) 0.8 k/uL (0-1.0); Monocytes % (A) 4 %; Neutrophils # (A) 16.3 k/uL (1.3-7.7); Neutrophils % (A) 77 %; Platelet Count 281 k/uL (150-450); RBC 2.46 m/uL (4.30-5.90); RDW 18.2 % (11.5-15.5); WBC 21.2 k/uL (3.8-10.6)
[2023-03-07] MEDS ORDERED: VANCOMYCIN TROUGH DUE 1 EACH MISC MISCELLANE ONE (07:00)
[2023-03-07 07:14] LABS: African American GFR (CKD) >90 (>60 ml/min/1.73 sqM); Anion Gap 6 mmol/L; Blood Urea Nitrogen 9 mg/dL (9-20); Calcium 7.1 mg/dL (8.4-10.2); Carbon Dioxide 18 mmol/L (22-30); Chloride 110 mmol/L (98-107); Glucose 102 mg/dL (74-99); Non-African American GFR(CKD) >90 (>60 ml/min/1.73 sqM); Potassium 3.9 mmol/L (3.5-5.1); Sodium 134 mmol/L (137-145)
--- NOTE | 2023-03-07 07:20 | XR ---
EXAMINATION TYPE: XR chest 1V portable DATE OF EXAM: 03/07/2023 COMPARISON: 03/05/2023 HISTORY: Chest pain TECHNIQUE: Single frontal view of the chest is obtained. FINDINGS: There is now a left-sided 30-40% pneumothorax noted. Multifocal cavitary masses noted measuring up to 2 cm. Cardiomediastinal silhouette is unremarkable. Bony thorax is intact. IMPRESSION: 1. Interval development of a 30-40% left-sided pneumothorax without mediastinal shift. 2. Redemonstration of multifocal cavitary lesion seen bilaterally. A Red level critical message alert has been initiated for Herbie Aguilar MD via the [employer] Critical Results System on 03/07/2023 7:18 AM. This message alert has been sent to Herbie Aguilar MD via the preferences provided by the clinician for the receipt of Radiology Critical Fin dings. Message ID [id number].
--- NOTE | 2023-03-07 07:44 | P.PN ---
Subjective Progress Note Date: 03/07/23 PROGRESS NOTE The patient is a 27-year-old male with history of heroin use, last used on February 27 who was transferred from [facility]. He was admitted recently with evidence of infection in his foot with abscess. He was found to have tricuspid aortic valve vegetation and pulmonary septic embolization. He has symptoms of dyspnea but no chest discomfort. He denies any dizziness, palpi tations or syncope. He uses tobacco. He has no history of hypertension, hyperlipidemia or diabetes. March 06: He is feeling well overall, he denies any chest discomfort, dizziness or palpitations. He denies any nausea. He is in sinus tachycardia. His blood pressure is stable. He is scheduled to undergo a REY today and has been evaluated by the cardiothoracic team for possible intervention. He continues to be on vancomycin. He has low-grade fever. His echocardiogram done prior to transfer showed a large tricuspid valve presentations with moderate to severe tricuspid regurgitation. His cultures showed staph aureus methicillin resistant. His chest x-ray is consistent with septic embolization. March 07: The patient continues to be dyspneic and fatigued. He has respirophasic chest discomfort. His chest x-ray shows evidence of left sided pneumothorax. His REY yesterday showed evidence of large vegetation on the tricuspid valve with fulminant tricuspid regurgitation, [id number] pericardial effusion and preserved left ventricle systolic function. To be in sinus tachycardia. The plan according to the surgical team is to transfer him for further intervention on the tricuspid valve Medications: Vancomycin, Ativan PHYSICAL EXAMINATION: Blood pressure 116/77 heart rate 120, temperature 100.4 LUNGS: Decreased air exchange HEART: Regular rate and rhythm, S1, S2. No S3. Systolic murmur noted at the right lower sternal border ABDOMEN: Soft, nontender, no organomegaly EXTREMETIES: Dressing on the left foot LAB: WBC 21.2, hemoglobin 7, BUN 9, creatinine 0.54, blood cultures bested gram- positive cocci, staph aureus IMPRESSION: 1. 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 Abscess on the foot 3. History of intravenous drug use 4. History of tobacco use 5. Left-sided pneumothorax PLAN: 1. Possible placement of chest tube 2. Probable transfer to the for intervention on his tricuspid valve, in view of the severe tricuspid regurgitation the patient is likely to require tricuspid valve surgery beyond the removal of the thrombus 3. Prognosis is guarded Objective - Vital Signs Vital signs: Vital Signs Temp 98.3 F 03/07/23 03:00 Pulse 125 H 03/07/23 07:00 Resp 42 H 03/07/23 07:00 BP 116/77 03/07/23 07:00 Pulse Ox 95 03/07/23 07:00 FiO2 Intake & Output 03/06/23 03/07/23 03/07/23 18:59 06:59 18:59 Intake Total 2270 1450 100 Output Total 945 1085 120 Balance 1325 365 -20 Weight 64 kg 70.5 kg Intake: IV 1790 1450 100 Invasive Line 1 60 Invasive Line 2 30 Sodium Chloride 0.9% 1, 1200 1200 100 000 ml @ 100 mls/hr IV . Q10H [facility] Rx#:[id number] Vancomycin 1,000 mg In 500 250 Sodium Chloride 0.9% 250 ml @ 125 mls/hr IVPB Q8H [facility] Rx#:[id number] Oral 480 Output: Urine 945 1085 120 Other: Voiding Method Indwelling Catheter Indwelling Catheter - Labs CBC & Chem 7: 03/07/23 04:49 03/07/23 04:49 Labs: Abnormal Lab Results - Last 24 Hours (Table) 03/05/23 03/06/23 03/07/23 Range/Units 12:44 04:03 04:49 WBC 21.2 H (3.8-10.6) k/uL RBC 2.46 L (4.30-5.90) m/uL Hgb 7.0 L (13.0-17.5) gm/dL Hct 22.2 L (39.0-53.0) % RDW 18.2 H (11.5-15.5) % Neutrophils # 16.3 H (1.3-7.7) k/uL ESR 27 H (0-15) mm/Hr Sodium (137-145) mmol/L Chloride (98-107) mmol/L Carbon Dioxide (22-30) mmol/L Creatinine (0.66-1.25) mg/dL Glucose (74-99) mg/dL Calcium (8.4-10.2) mg/dL Procalcitonin 2.33 H (0.02-0.09) ng/mL 03/07/23 Range/Units 04:49 WBC (3.8-10.6) k/uL RBC (4.30-5.90) m/uL Hgb (13.0-17.5) gm/dL Hct (39.0-53.0) % RDW (11.5-15.5) % Neutrophils # (1.3-7.7) k/uL ESR (0-15) mm/Hr Sodium 134 L (137-145) mmol/L Chloride 110 H (98-107) mmol/L Carbon Dioxide 18 L (22-30) mmol/L Creatinine 0.54 L (0.66-1.25) mg/dL Glucose 102 H (74-99) mg/dL Calcium 7.1 L (8.4-10.2) mg/dL Procalcitonin (0.02-0.09) ng/mL Microbiology - Last 24 Hours (Table) 03/05/23 12:40 Blood Culture Gram Stain - Preliminary Blood
[2023-03-07] MEDS: LORazepam 2 MG/ML INJ IV PRN ×3 (07:51→19:14)
[2023-03-07] MEDS ORDERED: LIDOCAINE 1% INJ 10MG/ML (20 ML MDV) ONE (08:08)
[2023-03-07] MEDS: HYDROmorphone 1 MG/ML 1 ML SYRINGE IVP PRN ×3 (08:10→20:14)
--- NOTE | 2023-03-07 08:28 | P.PN ---
Progress Note - Text Progress Note Date: 03/07/23 27-year-old IV drug abuser presents with sepsis. Found to have multiple emboli to bilateral lungs with a large tricuspid vegetation with wide open TR. Patient was initially evaluated by Dr. Park and plans were made for transfer to [facility] for angiogram VAC debridement of the tricuspid valve. Hope is that if his sepsis and infection can be controlled and he can get off drugs then consideration could be given for tricuspid valve replacement. Patient is scheduled for transfer to [facility] today. This morning's x-ray shows a large left-sided pneumothorax which is new. Patient is tachycardic and short of breath and x-ray shows some degree of shift of the mediastinum from l eft to right. Urgent chest tube placement was indicated. Informed consent was obtained. Sterile prep and drape of the left chest was performed. IV sedation was given. 1% lidocaine was used to anesthetize lateral chest wall and incision was made. Further lidocaine was instilled and entry into the pleural space was performed in the fifth or sixth interspace in the mid axillary line. 24-Turkmen chest tube was introduced into the pleural space. There was an immediate gush of air on opening the pleural space and there was evacuation of cloudy serous fluid on placement of the chest tube. Chest tube was connected to a Pleur-evac secured in place with Ethibond sutures. In addition to the pleural effusion drainage there was also some fibrinous material that came out through the chest tube. Portion of this and the fluid was sent for culture. Dry sterile dressing was applied to the site. Patient tolerated the procedure well. Plan is as above. Transferred to [place] today. Chest x-ray was ordered.
--- NOTE | 2023-03-07 08:46 | XR ---
EXAMINATION TYPE: XR chest 1V portable DATE OF EXAM: 03/07/2023 COMPARISON: Same day study HISTORY: Pneumothorax TECHNIQUE: Single frontal view of the chest is obtained. FINDINGS: Interval placement of left-sided chest tube with near complete resolution of previously noted pneumot horax. Again noted are cavitary lesion seen bilaterally. Small right-sided pleural effusion seen. Car diomediastinal silhouette is noted. IMPRESSION: 1. Near complete resolution of left-sided pneumothorax with left-sided chest tube placement.
[2023-03-07] MEDS: VANCOMYCIN 1,000 MG in SODIUM CHLORIDE 0.9% 250 ML IVPB SCH (08:57)
[2023-03-07] MEDS: HEPARIN SODIUM,PORCINE 5,000 UNIT/ML 1 ML VIAL SQ SCH ×2 (08:57→20:14)
[2023-03-07] MEDS: PANTOPRAZOLE 40 MG/10 ML VIAL IV SCH (08:58)
[2023-03-07] MEDS: COLLAGENASE 250 UNIT/GM OINTMENT 30 GM TUBE TOPICAL SCH (08:58)
[2023-03-07 11:05] VITALS: BMI 25.0
--- NOTE | 2023-03-07 12:26 | P.PN ---
Subjective Progress Note Date: 03/07/23 Principal diagnosis: Endocarditis. Pulmonary consult dated 03/05/2023. This is a 27-year-old male who was transferred over from [facility], today, to [facility]. I was called by cardiology, who wanted the patient transferred over, because of endocarditis involving the tricuspid valve. The patient was apparently seen initially, on February 16, at [facility] for left ankle cellulitis. Patient was seen and, treated, surgically, with a wound VAC placement, and then left AGAINST MEDICAL ADVICE. The patient was seen subsequent to that [facility] on February 23. He went back to [facility], on February 27, apparently, under the effects of polysubstance overdose, and was admitted to the hospital. The patient has a history of ADHD, hepatitis C, IVDA, and depression. The patient's currently on room air, receiving vancomycin for his methicillin- resistant staph aureus sepsis, and endocarditis, and getting saline at 100 mL an hour. Laboratory data here includes a white count of 21.9, hemoglobin 9, hematocrit 27.4, and platelet count of 94,000. Sodium 132, potassium 4, chlorides 112, CO2 14, BUN 11, creatinine 0.63. Glucose 130. AST is 91, ALT is 115, and albumin is only 1.7. Chest x-ray shows too many to count cavitary lesions bilaterally. Progress note dated 03/06/2023. This is a 27-year-old male who was transferred from [facility] yesterday, because of tricuspid valve endocarditis. The patient's blood cultures were positive multiple times for methicillin-resistant staph aureus. The patient is on IV vancomycin. He is getting 2 L of oxygen, and saline at 100 mL an hour. The plan is to do a transesophageal echocardiogram today, and then transferred the patient to [facility], for a ANGIOVAC procedure. Clinically, the patient is stable. White count 19.6, hemoglobin 7.5, hematocrit 23, and a normal platelet count. Sodium 133, potassium 4.1, chlorides 112, CO2 17, the 110, and creatinine 0.6. Progress note dated 03/07/2023. 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 The patient was to be transferred, to an outside hospital, for a Angiovac procedure. Yesterday, the patient had a transesophageal echocardiogram. The patient is seen today in room 261. This morning, he was di scovered to have a left-sided pneumothorax, and a chest tube was placed by cardiothoracic surgery. It was a 24-Beninese chest tube. Currently, the patient's on 2 L of oxygen. He is receiving saline at 100 mL an hour. The patient has been accepted to the outside hospital, but, we are currently awai ting a bed. White count 21.2, hemoglobin 7, hematocrit 22.2, within normal platelet count. Sodium 134, potassium 3.9, chlorides 110, CO2 18, BUN 9, creatinine 0.54. Post chest tube chest x-ray shows proper placement of a left- sided chest tube, and near complete resolution of the left-sided thorax. Objective - Vital Signs Vital signs: Vital Signs Temp 98.5 F 03/07/23 12:00 Pulse 126 H 03/07/23 12:00 Resp 47 H 03/07/23 12:00 BP 126/73 03/07/23 12:00 Pulse Ox 100 03/07/23 12:00 FiO2 Intake & Output 03/06/23 03/07/23 03/07/23 18:59 06:59 18:59 Intake Total 2270 1450 850 Output Total 945 1085 1090 Balance 1325 365 -240 Weight 64 kg 70.5 kg 70.5 kg Intake: IV 1790 1450 850 Invasive Line 1 60 Invasive Line 2 30 Sodium Chloride 0.9% 1, 1200 1200 600 000 ml @ 100 mls/hr IV . Q10H [facility] Rx#:[id number] Vancomycin 1,000 mg In 500 250 250 Sodium Chloride 0.9% 250 ml @ 125 mls/hr IVPB Q8H [facility] Rx#:[id number] Oral 480 Output: Chest Tube Drainage 560 Left Pleural 560 Urine 945 1085 530 Other: Voiding Method Indwelling Catheter Indwelling Catheter Indwelling Catheter - Exam No acute distress, oriented 3. 2 L saturation is 100%. HEENT examination is grossly unremarkable. Neck supple. Full range of motion. No adenopathy thyromegaly or neck vein distention. Cardiovascular examination reveals regular rhythm rate. S1-S2 normal. No S3 or S4. No discernible murmur noted. Heart rate 126 bpm. Lungs reveal scattered bilateral rhonchi. No wheezes or crackles. 2 L saturation 100 %. A left-sided 24-Beninese chest tube is noted. Abdomen soft bowel sounds are heard. No masses or tenderness. Extremities are intact. No cyanosis clubbing or edema. Left ankle wound, partially open, with sutures in place. Skin is without rash or lesion. Neurologic examination is brief but nonfocal. - Labs CBC & Chem 7: 03/07/23 04:49 03/07/23 04:49 Labs: Abnormal Lab Results - Last 24 Hours (Table) 03/05/23 03/07/23 03/07/23 Range/Units 12:44 04:49 04:49 WBC 21.2 H (3.8-10.6) k/uL RBC 2.46 L (4.30-5.90) m/uL Hgb 7.0 L (13.0-17.5) gm/dL Hct 22.2 L (39.0-53.0) % RDW 18.2 H (11.5-15.5) % Neutrophils # 16.3 H (1.3-7.7) k/uL Sodium 134 L (137-145) mmol/L Chloride 110 H (98-107) mmol/L Carbon Dioxide 18 L (22-30) mmol/L Creatinine 0.54 L (0.66-1.25) mg/dL Glucose 102 H (74-99) mg/dL Calcium 7.1 L (8.4-10.2) mg/dL Procalcitonin 2.33 H (0.02-0.09) ng/mL Microbiology - Last 24 Hours (Table) 03/06/23 04:03 Blood Culture Gram Stain - Preliminary Blood 03/05/23 12:40 Blood Culture Gram Stain - Preliminary Blood Assessment and Plan Assessment: Methicillin-resistant staph aureus sepsis, with tricuspid valve endocarditis, and multiple bilateral cavitary pulmonary lesions. Spontaneous left-sided pneumothorax, 03/07/2023,S/P 24-Beninese chest tube placement. History of intravenous drug abuse. History of depression. History of ADHD. Left ankle cellulitis. Status post 1 unit of PRBCs, for anemia. Plan: Plan dated 03/05/2023. The patient is transferred over from [facility], to [facility]. The patient will be seen by cardiology, and also be seen by cardiothoracic surgery. I did speak to cardiology earlier today, and except for the patient into the intensive care unit. The patient should be started back on vancomycin. The patient's chest x-ray is quite concerning, as it has multiple bilateral cavitary lesions. There are too many to count. Additional recommendations and suggestions are forthcoming. Prognosis is guarded. We will continue to follow make recommendations along the way. Plan dated 03/06/2023. The patient is going to have a transesophageal echocardiogram. Subsequent to that, the patient is going to be transferred to [facility], for a ANGIOVAC procedure. The patient has been stable overnight. He is currently on 2 L of oxygen. He continues on vancomycin. He is getting saline at 100 mL an hour. We will continue to follow the patient, and make recommendations along the way. His chest x-ray shows multiple comminuted count bilateral cavitary lesion, consistent with septic emboli. Plan dated 03/07/2023. The patient had a transesophageal echocardiogram yesterday, which showed a 1.5 cm vegetation on the tricuspid valve. The patient is to be transferred to an outside hospital, for a another procedure. The patient developed spontaneous left-sided pneumothorax this morning, and cardiothoracic surgery placed a #24- Beninese chest tube. The lung has been fully reexpanded. The patient currently is stable. He's on 2 L of oxygen. He is receiving saline at 100 mL an hour. Labs, x-rays, and medications are reviewed. Prognosis is certainly guarded. He continues on vancomycin. Time with Patient: Greater than 30
[2023-03-07] MEDS: VANCOMYCIN 1,250 MG in SODIUM CHLORIDE 0.9% 250 ML IVPB SCH ×2 (16:17→23:09)
[2023-03-08] MEDS: HYDROmorphone 1 MG/ML 1 ML SYRINGE IVP PRN ×4 (02:25→20:41)
[2023-03-08] MEDS: KETOROLAC 15 MG/ML 1 ML VIAL IVP PRN ×3 (04:20→16:24)
--- NOTE | 2023-03-08 05:39 | PN ---
PROGRESS NOTE DATE OF SERVICE: 03/06/2023 CHIEF COMPLAINT: Tricuspid bacterial endocarditis. HISTORY OF PRESENT ILLNESS: This gentleman is stable and a decision was then made that he will be transferred to [facility]. This transfer has been accepted and we are waiting for bed. PHYSICAL EXAMINATION: GENERAL: He is awake and alert. CHEST: Clear. CARDIAC: Unchanged. ABDOMEN: Soft. IMPRESSION: Tricuspid subacute bacterial endocarditis with Methicillin-resistant Staphylococcus aureus. PLAN: Await transfer to outside hospital. MMODL / IJN: [id number] /
--- NOTE | 2023-03-08 05:39 | HP ---
HISTORY AND PHYSICAL CHIEF COMPLAINT: Bacterial endocarditis of the tricuspid valve. HISTORY OF PRESENT ILLNESS: This gentleman was transferred from [facility], where he was admitted for a methamphetamine overdose. He was subsequently found to have vegetations of the tricuspid valve. He had an infection in his left ankle, which had been drained and growing out MRSA, which was also growing out in the blood culture. REVIEW OF SYSTEMS: He denies any chest pain, shortness of breath, abdominal pain, nausea, vomiting, etc. Rest of the history can be found in detail in his transfer documents. PHYSICAL EXAMINATION: VITAL SIGNS: Normal except for tachycardia going to 108 beats per minute. HEAD, EARS, EYES, NOSE, MOUTH, AND THROAT: Normal. CHEST: Clear. CARDIAC: Normal. No murmur was heard. ABDOMEN: Soft, nontender. EXTREMITIES: Normal except for the left ankle. IMPRESSION: 1. Methicillin-resistant Staphylococcus aureus, subacute bacterial endocarditis of the tricuspid valve. 2. Osteomyelitis of left ankle. PLAN: IV management. He will be assessed by Cardiology and Cardiac Surgery. MMODL / CONSTANCEN: [id number] /
--- NOTE | 2023-03-08 05:39 | PN ---
PROGRESS NOTE CHIEF COMPLAINT: SBE. HISTORY OF PRESENT ILLNESS: This gentleman is still waiting for a bed in [facility]. Arrangements have subsequently been made and he has been accepted. During the night, he collapsed the left lung and had a chest tube placed. PHYSICAL EXAMINATION: CHEST: Breath sounds are heard bilaterally. VITAL SIGNS: Normal. CARDIAC: Normal. IMPRESSION: 1. Subacute bacterial endocarditis of the tricuspid valve. 2. Osteomyelitis of the left . 3. Left pneumothorax. PLAN: Await bed at [facility]. MMODL / IJN: [id number] /
[2023-03-08] MEDS ORDERED: VANCOMYCIN TROUGH DUE 1 EACH MISC MISCELLANE ONE (07:00)
--- NOTE | 2023-03-08 07:28 | P.PN ---
Subjective Progress Note Date: 03/08/23 PROGRESS NOTE The patient is a 27-year-old male with history of heroin use, last used on February 27 who was transferred from [facility]. He was admitted recently with evidence of infection in his foot with abscess. He was found to have tricuspid aortic valve vegetation and pulmonary septic embolization. He has symptoms of dyspnea but no chest discomfort. He denies any dizziness, palpi tations or syncope. He uses tobacco. He has no history of hypertension, hyperlipidemia or diabetes. March 06: He is feeling well overall, he denies any chest discomfort, dizziness or palpitations. He denies any nausea. He is in sinus tachycardia. His blood pressure is stable. He is scheduled to undergo a REY today and has been evaluated by the cardiothoracic team for possible intervention. He continues to be on vancomycin. He has low-grade fever. His echocardiogram done prior to transfer showed a large tricuspid valve presentations with moderate to severe tricuspid regurgitation. His cultures showed staph aureus methicillin resistant. His chest x-ray is consistent with septic embolization. March 07: The patient continues to be dyspneic and fatigued. He has respirophasic chest discomfort. His chest x-ray shows evidence of left sided pneumothorax. His REY yesterday showed evidence of large vegetation on the tricuspid valve with fulminant tricuspid regurgitation, [id number] pericardial effusion and preserved left ventricle systolic function. To be in sinus tachycardia. The plan according to the surgical team is to transfer him for further intervention on the tricuspid valve March 08: The patient continues to be dyspneic and has respirophasic chest discomfort. He underwent chest tube placement yesterday for treatment of his pneumothorax. He continues to have sinus tachycardia. He is awaiting bed transfer to [facility] to undergo further intervention on his tricuspid valve. He continues to have low- grade fever. He denies any nausea or vomiting. There is no evidence of atrial fibrillation. Medications: Vancomycin, Ativan PHYSICAL EXAMINATION: Blood pressure 123/72 heart rate 117, temperature 100.4 LUNGS: Decreased air exchange HEART: Regular rate and rhythm, tachycardic, S1, S2. No S3. Systolic murmur noted at the right lower sternal border ABDOMEN: Soft, nontender, no organomegaly EXTREMETIES: Dressing on the left foot LAB: Pending IMPRESSION: 1. 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 Abscess on the foot 3. History of intravenous drug use 4. History of tobacco use 5. Left-sided pneumothorax, status post chest tube PLAN: 1. Continue IV antibiotics 2. Awaiting transfer for further intervention on the tricuspid valve 3. Prognosis is guarded Objective - Vital Signs Vital signs: Vital Signs Temp 97.9 F 03/08/23 00:00 Pulse 117 H 03/08/23 03:00 Resp 17 03/08/23 03:00 BP 123/72 03/08/23 03:00 Pulse Ox 99 03/08/23 03:00 FiO2 Intake & Output 03/07/23 03/08/23 03/08/23 18:59 06:59 18:59 Intake Total 2310 2050 100 Output Total 1430 845 120 Balance 880 1205 -20 Weight 70.5 kg 66.5 kg Intake: IV 1450 1450 100 Sodium Chloride 0.9% 1, 1200 1200 100 000 ml @ 100 mls/hr IV . Q10H [facility] Rx#:[id number] Vancomycin 1,000 mg In 250 250 Sodium Chloride 0.9% 250 ml @ 125 mls/hr IVPB Q8H [facility] Rx#:[id number] Oral 860 600 Output: Chest Tube Drainage 680 95 45 Left Pleural 680 95 45 Urine 750 750 75 Other: Voiding Method Indwelling Catheter Indwelling Catheter # Bowel Movements 0 - Labs CBC & Chem 7: 03/07/23 04:49 03/07/23 04:49 Labs: Microbiology - Last 24 Hours (Table) 03/06/23 04:03 Blood Culture Gram Stain - Preliminary Blood
--- NOTE | 2023-03-08 07:39 | XR ---
EXAMINATION TYPE: XR chest 1V portable DATE OF EXAM: 03/08/2023 5:57 AM CLINICAL INDICATION:Male, 27 years old with history of Chest tube/ In ICU; COMPARISON: Chest radiographs from 03/07/2023. TECHNIQUE: XR chest 1V portable Frontal view of the chest. FINDINGS: Lungs/Pleura: Scattered airspace opacities are improved likely due to phase of inspiration. Blunting of the costophrenic angles. No evidence of pneumothorax. Pulmonary vascularity: Unremarkable. Heart/mediastinum: Cardiomediastinal silhouette is unremarkable. Musculoskeletal: No acute osseous pathology. Other findings: Subcutaneous emphysema scattered throughout the visualized thorax. Lines/Tubes: Left thoracotomy tube is present without evidence of pneumothorax. IMPRESSION: 1. Left thoracotomy tube without evidence of pneumothorax. 2. Subcutaneous emphysema. 3. Patchy airspace opacities with suspected bilateral pleural effusions, right greater than left.
[2023-03-08 08:15] LABS: Anisocytosis Slight; HCT 20.7 % (39.0-53.0); Hypochromasia Moderate; MCHC 31.7 g/dL (31.0-37.0); MCV 91.5 fL (80.0-100.0); Mean Platelet Volume 7.9; Platelet Count 331 k/uL (150-450); RBC 2.26 m/uL (4.30-5.90); WBC 18.2 k/uL (3.8-10.6)
[2023-03-08] MEDS: PANTOPRAZOLE 40 MG/10 ML VIAL IV SCH (08:21)
[2023-03-08] MEDS: HEPARIN SODIUM,PORCINE 5,000 UNIT/ML 1 ML VIAL SQ SCH ×2 (08:21→20:41)
[2023-03-08 08:22] LABS: HGB 6.6 gm/dL (13.0-17.5)
[2023-03-08] MEDS: VANCOMYCIN 1,250 MG in SODIUM CHLORIDE 0.9% 250 ML IVPB SCH ×2 (08:23→16:23)
[2023-03-08] MEDS: COLLAGENASE 250 UNIT/GM OINTMENT 30 GM TUBE TOPICAL SCH (08:36)
[2023-03-08 09:28] LABS: African American GFR (CKD) >90 (>60 ml/min/1.73 sqM); Anion Gap 2 mmol/L; Blood Urea Nitrogen 9 mg/dL (9-20); Calcium 7.3 mg/dL (8.4-10.2); Carbon Dioxide 19 mmol/L (22-30); Chloride 111 mmol/L (98-107); Glucose 110 mg/dL (74-99); Magnesium 1.6 mg/dL (1.6-2.3); Non-African American GFR(CKD) >90 (>60 ml/min/1.73 sqM); Potassium 4.1 mmol/L (3.5-5.1); Sodium 132 mmol/L (137-145)
--- NOTE | 2023-03-08 10:01 | P.PN ---
Subjective Progress Note Date: 03/08/23 Principal diagnosis: Endocarditis involving his tricuspid valve. Past medical history significant for heroin IV drug abuse, hepatitis C, ADHD, depression, sepsis, abscess of the left lower leg, and chronic nicotine abuse with vaping. Status post day #1 placement of left pleural chest tube for a spontaneous left pneumothorax. The patient was seen and examined in follow-up today 03/08/2023 at his bedside in the intensive care unit. Patient is currently lying in bed, is awake, alert, oriented 3 and in no acute distress. The patient is denying any complaints of shortness of breath at this time, although is complaining of some pain to his left chest tube insertion site. Oxygen saturation are 99% on 2 L nasal cannula. Bedside telemetry showing sinus tachycardia heart rate 124 BPM. T-max temperature in the last 24 hours is 101.5F. Left chest tube remains in place t o low continuous wall suction -20 cm H2O. Intermittent air leak is present with coughing. Draining thin serous drainage with 65 mL output in the last 8 hours and 120 mL output in the last 24 hours. The plan is for the patient be transferred to [facility] for Angio-vac procedure. Objective - Vital Signs Vital signs: Vital Signs Temp 99.2 F 03/08/23 08:00 Pulse 135 H 03/08/23 09:00 Resp 35 H 03/08/23 09:00 BP 137/80 03/08/23 09:00 Pulse Ox 98 03/08/23 09:00 FiO2 Intake & Output 03/07/23 03/08/23 03/08/23 18:59 06:59 18:59 Intake Total 2310 2050 450 Output Total 1430 845 150 Balance 880 1205 300 Weight 70.5 kg 66.5 kg Intake: IV 1450 1450 450 Sodium Chloride 0.9% 1, 1200 1200 200 000 ml @ 100 mls/hr IV . Q10H [facility] Rx#:[id number] Vancomycin 1,000 mg In 250 250 Sodium Chloride 0.9% 250 ml @ 125 mls/hr IVPB Q8H [facility] Rx#:[id number] Vancomycin 1,250 mg In 250 Sodium Chloride 0.9% 250 ml @ 125 mls/hr IVPB Q8HR [facility] Rx#:[id number] Oral 860 600 Output: Chest Tube Drainage 680 95 45 Left Pleural 680 95 45 Urine 750 750 105 Other: Voiding Method Indwelling Catheter Indwelling Catheter # Bowel Movements 0 - Exam CONSTITUTIONAL: Laying in bed in the intensive care unit, appears comfortable, cooperative, no apparent acute distress. HEENT: Neck is supple, no JVD, no lymphadenopathy. RESPIRATORY: Lungs sounds with few scattered crackles throughout, diminished to his bilateral bases, left greater than right. Respirations are symmetrical and tachypneic. Currently on 2 L nasal cannula with oxygen saturations 99%. Strong cough. Left pleural chest tube in place to low continuous wall suction -20 cm H2O. Intermittent air leak is present. Draining thin serous drainage. CARDIOVASCULAR: Regular rhythm and tachycardic rate. S1 and S2 present, negative for S3, gallop or murmur. Palpable peripheral pulses bilaterally, no edema to his bilateral lower extremities. No calf pain or tenderness noted. GASTROINTESTINAL: Abdomen soft, nontender, nondistended. Active bowel sounds present 4 quadrants. Passing flatus. No guarding or rigidity. GENITOURINARY: Anderson present draining clear, yellow urine. Urine output 395 mL in the last 8 hours. INTEGUMENTARY: Skin is warm and dry with no evidence of clubbing or cyanosis. Dressing is clean, dry and intact to his left ankle. NEUROLOGIC: Cranial nerves II through XII intact. No focal deficits. MUSKULOSKELETAL: Able to move all extremities, strength equal bilaterally, generalized weakness. PSYCHIATRIC: Alert and oriented to person place and time, appropriate affect, intact judgment and insight. - Allied health notes Allied health notes reviewed: nursing - Labs CBC & Chem 7: 03/08/23 06:56 03/08/23 06:56 Labs: Abnormal Lab Results - Last 24 Hours (Table) 03/08/23 03/08/23 Range/Units 06:56 06:56 WBC 18.2 H (3.8-10.6) k/uL RBC 2.26 L (4.30-5.90) m/uL Hgb 6.6 L* (13.0-17.5) gm/dL Hct 20.7 L (39.0-53.0) % RDW 18.0 H (11.5-15.5) % Sodium 132 L (137-145) mmol/L Chloride 111 H (98-107) mmol/L Carbon Dioxide 19 L (22-30) mmol/L Creatinine 0.60 L (0.66-1.25) mg/dL Glucose 110 H (74-99) mg/dL Calcium 7.3 L (8.4-10.2) mg/dL Microbiology - Last 24 Hours (Table) 03/06/23 04:03 Blood Culture Gram Stain - Preliminary Blood - Imaging and Cardiology Chest x-ray: report reviewed, image reviewed Assessment and Plan Assessment: Transthoracic 2-D echocardiogram showed a large vegetation to his tricuspid valve with moderate to severe tricuspid valve regurgitation Sepsis with positive blood culture showing MRSA, treated with vancomycin Abscess to his left lateral malleolus, status post I&D IV drug use, heroin and fentanyl Hepatitis C History of delirium Chronic ongoing tobacco dependence with vaping Spontaneous left-sided pneumothorax, 24-[place] chest tube placed yesterday 03/07/2023 Plan: Dr. Park, Dr. Marques and Dr. Hill discussed transfer to [facility] for Angio-Vac procedure, patient is waiting bed at [facility] for transfer. Keep left pleural chest tube to low continuous wall suction -20 cm H2O. Encourage use of incentive spirometry 10 times every hour while awake. Anabolic management per infectious disease recommendations. Pain control per current when necessary orders. More recommendations to follow based on patient's clinical course. Time with Patient: Greater than 30
[2023-03-08] MEDS: SODIUM CHLORIDE 0.9% 1,000 ML IV SCH (10:24)
[2023-03-08] MEDS: MAGNESIUM SULFATE-D5W PMX 1 GM in DEXTROSE/WATER 1 100ML.BAG IVPB SCH ×2 (10:36→12:44)
--- NOTE | 2023-03-08 11:46 | P.PN ---
Subjective Progress Note Date: 03/08/23 Principal diagnosis: Endocarditis. Pulmonary consult dated 03/05/2023. This is a 27-year-old male who was transferred over from [facility], today, to [facility]. I was called by cardiology, who wanted the patient transferred over, because of endocarditis involving the tricuspid valve. The patient was apparently seen initially, on February 16, at [facility] for left ankle cellulitis. Patient was seen and, treated, surgically, with a wound VAC placement, and then left AGAINST MEDICAL ADVICE. The patient was seen subsequent to that [facility] on February 23. He went back to [facility], on February 27, apparently, under the effects of polysubstance overdose, and was admitted to the hospital. The patient has a history of ADHD, hepatitis C, IVDA, and depression. The patient's currently on room air, receiving vancomycin for his methicillin- resistant staph aureus sepsis, and endocarditis, and getting saline at 100 mL an hour. Laboratory data here includes a white count of 21.9, hemoglobin 9, hematocrit 27.4, and platelet count of 94,000. Sodium 132, potassium 4, chlorides 112, CO2 14, BUN 11, creatinine 0.63. Glucose 130. AST is 91, ALT is 115, and albumin is only 1.7. Chest x-ray shows too many to count cavitary lesions bilaterally. Progress note dated 03/06/2023. This is a 27-year-old male who was transferred from [facility] yesterday, because of tricuspid valve endocarditis. The patient's blood cultures were positive multiple times for methicillin-resistant staph aureus. The patient is on IV vancomycin. He is getting 2 L of oxygen, and saline at 100 mL an hour. The plan is to do a transesophageal echocardiogram today, and then transferred the patient to [facility], for a ANGIOVAC procedure. Clinically, the patient is stable. White count 19.6, hemoglobin 7.5, hematocrit 23, and a normal platelet count. Sodium 133, potassium 4.1, chlorides 112, CO2 17, the 110, and creatinine 0.6. Progress note dated 03/07/2023. 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 The patient was to be transferred, to an outside hospital, for a Angiovac procedure. Yesterday, the patient had a transesophageal echocardiogram. The patient is seen today in room 261. This morning, he was di scovered to have a left-sided pneumothorax, and a chest tube was placed by cardiothoracic surgery. It was a 24-[place] chest tube. Currently, the patient's on 2 L of oxygen. He is receiving saline at 100 mL an hour. The patient has been accepted to the outside hospital, but, we are currently awai ting a bed. White count 21.2, hemoglobin 7, hematocrit 22.2, within normal platelet count. Sodium 134, potassium 3.9, chlorides 110, CO2 18, BUN 9, creatinine 0.54. Post chest tube chest x-ray shows proper placement of a left- sided chest tube, and near complete resolution of the left-sided thorax. Progress note dated 03/08/2023. 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 The patient is scheduled to go to an outside hospital, for a ANGIOVAC procedure. The patient did develop a left-sided pneumothorax, and a chest tube was placed by cardiothoracic surgery. He's seen today in room 261, intensive care unit. He is currently on room air. He is getting saline at 100 mL an hour. His hemoglobin this morning was 6.6. He will get 1 unit of packed red blood cells. He had an uneventful night according to the nurse. White count 18.2, hemoglobin 6.6, hematocrit 20.7, and platelet count normal. Sodium 132, potassium 4.1, chlorides 111, CO2 19, BUN 9, and creatinine 0.60. Chest x- ray today shows a left chest tube in place, without evidence of pneumothorax, and evidence of subcutaneous emphysema, with some patchy bibasilar infiltrates or atelectasis, right greater than left. Objective - Vital Signs Vital signs: Vital Signs Temp 99.2 F 03/08/23 08:00 Pulse 133 H 03/08/23 11:00 Resp 28 H 03/08/23 11:00 BP 139/89 03/08/23 11:00 Pulse Ox 98 03/08/23 11:00 FiO2 Intake & Output 03/07/23 03/08/23 03/08/23 18:59 06:59 18:59 Intake Total 2310 2050 850 Output Total 1430 845 575 Balance 880 1205 275 Weight 70.5 kg 66.5 kg Intake: IV 1450 1450 850 Magnesium Sulfate-D5w Pmx 100 1 gm In Dextrose/Water 1 100ml.bag @ 100 mls/hr IVPB Q1H [facility] Rx#: [id number] Sodium Chloride 0.9% 1, 1200 1200 500 000 ml @ 100 mls/hr IV . Q10H [facility] Rx#:[id number] Vancomycin 1,000 mg In 250 250 Sodium Chloride 0.9% 250 ml @ 125 mls/hr IVPB Q8H [facility] Rx#:[id number] Vancomycin 1,250 mg In 250 Sodium Chloride 0.9% 250 ml @ 125 mls/hr IVPB Q8HR [facility] Rx#:[id number] Oral 860 600 Output: Chest Tube Drainage 680 95 195 Left Pleural 680 95 195 Urine 750 750 380 Other: Voiding Method Indwelling Catheter Indwelling Catheter Indwelling Catheter # Bowel Movements 0 - Exam No acute distress, oriented 3. Room air saturation is 98%. HEENT examination is grossly unremarkable. Neck supple. Full range of motion. No adenopathy thyromegaly or neck vein distention. Cardiovascular examination reveals regular rhythm rate. S1-S2 normal. No S3 or S4. No discernible murmur noted. Heart rate 130 bpm. Lungs reveal scattered bilateral rhonchi. No wheezes or crackles. Room air saturation is 98%. A left-sided 24[place] chest tube is noted. Abdomen soft bowel sounds are heard. No masses or tenderness. Extremities are intact. No cyanosis clubbing or edema. Left ankle wound, partially open, with sutures in place. Skin is without rash or lesion. Neurologic examination is brief but nonfocal. - Labs CBC & Chem 7: 03/08/23 06:56 03/08/23 06:56 Labs: Abnormal Lab Results - Last 24 Hours (Table) 03/08/23 03/08/23 Range/Units 06:56 06:56 WBC 18.2 H (3.8-10.6) k/uL RBC 2.26 L (4.30-5.90) m/uL Hgb 6.6 L* (13.0-17.5) gm/dL Hct 20.7 L (39.0-53.0) % RDW 18.0 H (11.5-15.5) % Sodium 132 L (137-145) mmol/L Chloride 111 H (98-107) mmol/L Carbon Dioxide 19 L (22-30) mmol/L Creatinine 0.60 L (0.66-1.25) mg/dL Glucose 110 H (74-99) mg/dL Calcium 7.3 L (8.4-10.2) mg/dL Microbiology - Last 24 Hours (Table) 03/06/23 04:03 Blood Culture Gram Stain - Preliminary Blood Assessment and Plan Assessment: Methicillin-resistant staph aureus sepsis, with tricuspid valve endocarditis, and multiple bilateral cavitary pulmonary lesions. Spontaneous left-sided pneumothorax, 03/07/2023,S/P 24[place] chest tube placement. History of intravenous drug abuse. History of depression. History of ADHD. Left ankle cellulitis. Status post 1 unit of PRBCs, for anemia. Plan: Plan dated 03/05/2023. The patient is transferred over from [facility], to [facility]. The patient will be seen by cardiology, and also be seen by cardiothoracic surgery. I did speak to cardiology earlier today, and except for the patient into the intensive care unit. The patient should be started back on vancomycin. The patient's chest x-ray is quite concerning, as it has multiple bilateral cavitary lesions. There are too many to count. Additional recommendations and suggestions are forthcoming. Prognosis is guarded. We will continue to follow make recommendations along the way. Plan dated 03/06/2023. The patient is going to have a transesophageal echocardiogram. Subsequent to that, the patient is going to be transferred to [facility], for a ANGIOVAC procedure. The patient has been stable overnight. He is currently on 2 L of oxygen. He continues on vancomycin. He is getting saline at 100 mL an hour. We will continue to follow the patient, and make recommendations along the way. His chest x-ray shows multiple comminuted count bilateral cavitary lesion, consistent with septic emboli. Plan dated 03/07/2023. The patient had a transesophageal echocardiogram yesterday, which showed a 1.5 cm vegetation on the tricuspid valve. The patient is to be transferred to an outside hospital, for a another procedure. The patient developed spontaneous left-sided pneumothorax this morning, and cardiothoracic surgery placed a #24[place] chest tube. The lung has been fully reexpanded. The patient currently is stable. He's on 2 L of oxygen. He is receiving saline at 100 mL an hour. Labs, x-rays, and medications are reviewed. Prognosis is certainly guarded. He continues on vancomycin. Plan dated 03/08/2023. The patient is scheduled to be transferred to an outside hospital, for the ANGIOVAC procedure. Labs, x-rays, medications are reviewed. The left-sided pneumothorax does not appear to be present on today's chest x-ray. There is not a leak from the left-sided chest tube either. Labs, x-rays, and medications are reviewed. The patient's overall prognosis remains very guarded. He continues on vancomycin for his methicillin-resistant staphylococcal aureus tricuspid valve endocarditis. We will continue to follow the patient make recommendations along the way. Time with Patient: Less than 30
[2023-03-08] MEDS: ONDANSETRON 4 MG/2 ML VIAL IVP PRN (14:35)
--- NOTE | 2023-03-08 15:13 | XR ---
EXAMINATION TYPE: XR chest 1V portable DATE OF EXAM: 03/08/2023 2:50 PM CLINICAL INDICATION:Male, 27 years old with history of central line insertion; COMPARISON: Chest radiographs from 03/08/2023. TECHNIQUE: XR chest 1V portable Frontal view of the chest. FINDINGS: Lungs/Pleura: Similar right pleural effusion with associated atelectasis. Left basilar atelectasis. Pulmonary vascularity: Unremarkable. Heart/mediastinum: Cardiomediastinal silhouette is unremarkable. Musculoskeletal: No acute osseous pathology. Other findings: Subcutaneous emphysema scattered throughout the visualized left chest wall. Lines/Tubes: Left thoracotomy tube is present with evidence of small pneumothorax. Left internal jugular central venous catheter with distal tip at the cavoatrial junction. IMPRESSION: Increase in left pneumothorax. Thoracotomy tube in place. Small subjacent emphysema.
--- NOTE | 2023-03-08 15:52 | P.PN ---
Subjective Progress Note Date: 03/07/23 Principal diagnosis: MRSA bacteremia and tricuspid valve endocarditis Patient is a 27-year-old male with a past medical history significant for IV drug use patient apparently was recently admitted at [facility] with left lower leg abscess s/p surgical drainage, patient apparently left AGAINST MEDICAL ADVICE and subsequently presenting back to the hospital with delirium weakness fever and chills , patient did have evidence of MRSA bacteremia concerning for tricuspid valve endocarditis. On today's evaluation that is 03/07/2023, the patient did have a fever of 100.4 at midnight the patient is breathing comfortably on 2 L nasal cannula oxygen, the patient has developed left-sided pneumothorax requiring urgent chest tube placement, denies any worsening cough or sputum production no vomiting no abdominal pain or diarrhea Patient with white count slightly up to 21.2, creatinine 0.54 Objective - Vital Signs Vital signs: Vital Signs Temp 97.6 F 03/07/23 08:00 Pulse 124 H 03/07/23 09:00 Resp 29 H 03/07/23 09:00 BP 134/98 03/07/23 09:00 Pulse Ox 92 L 03/07/23 09:00 FiO2 Intake & Output 03/06/23 03/07/23 03/07/23 18:59 06:59 18:59 Intake Total 2270 1450 300 Output Total 945 1085 780 Balance 1325 365 -480 Weight 64 kg 70.5 kg Intake: IV 1790 1450 300 Invasive Line 1 60 Invasive Line 2 30 Sodium Chloride 0.9% 1, 1200 1200 300 000 ml @ 100 mls/hr IV . Q10H [facility] Rx#:[id number] Vancomycin 1,000 mg In 500 250 Sodium Chloride 0.9% 250 ml @ 125 mls/hr IVPB Q8H [facility] Rx#:[id number] Oral 480 Output: Chest Tube Drainage 500 Left Pleural 500 Urine 945 1085 280 Other: Voiding Method Indwelling Catheter Indwelling Catheter Indwelling Catheter - Exam GENERAL DESCRIPTION: Middle-aged male lying in bed in no distress RESPIRATORY SYSTEM: Unlabored breathing , decreased breath sounds at bases HEART: S1 S2 regular rate and rhythm , ABDOMEN: Soft , no tenderness EXTREMITIES: Left leg wound is currently dressed - Labs CBC & Chem 7: 03/08/23 06:56 03/08/23 06:56 Labs: Abnormal Lab Results - Last 24 Hours (Table) 03/05/23 03/06/23 03/07/23 Range/Units 12:44 04:03 04:49 WBC 21.2 H (3.8-10.6) k/uL RBC 2.46 L (4.30-5.90) m/uL Hgb 7.0 L (13.0-17.5) gm/dL Hct 22.2 L (39.0-53.0) % RDW 18.2 H (11.5-15.5) % Neutrophils # 16.3 H (1.3-7.7) k/uL ESR 27 H (0-15) mm/Hr Sodium (137-145) mmol/L Chloride (98-107) mmol/L Carbon Dioxide (22-30) mmol/L Creatinine (0.66-1.25) mg/dL Glucose (74-99) mg/dL Calcium (8.4-10.2) mg/dL Procalcitonin 2.33 H (0.02-0.09) ng/mL 03/07/23 Range/Units 04:49 WBC (3.8-10.6) k/uL RBC (4.30-5.90) m/uL Hgb (13.0-17.5) gm/dL Hct (39.0-53.0) % RDW (11.5-15.5) % Neutrophils # (1.3-7.7) k/uL ESR (0-15) mm/Hr Sodium 134 L (137-145) mmol/L Chloride 110 H (98-107) mmol/L Carbon Dioxide 18 L (22-30) mmol/L Creatinine 0.54 L (0.66-1.25) mg/dL Glucose 102 H (74-99) mg/dL Calcium 7.1 L (8.4-10.2) mg/dL Procalcitonin (0.02-0.09) ng/mL Microbiology - Last 24 Hours (Table) 03/05/23 12:40 Blood Culture Gram Stain - Preliminary Blood Assessment and Plan (1) MRSA bacteremia Current Visit: Yes Status: Acute Code(s): R78.81 - BACTEREMIA; B95.62 - METHICILLIN RESIS STAPH INFCT CAUSING DISEASES [facility] SNOMED Code(s): 20238536917453354 (2) Bacterial endocarditis Current Visit: Yes Status: Acute Code(s): I33.0 - ACUTE AND SUBACUTE INFECTIVE ENDOCARDITIS SNOMED Code(s): 465648559 (3) Non-pressure chronic ulcer of left ankle with fat layer exposed Current Visit: Yes Status: Acute Code(s): L97.322 - NON-PRESSURE CHRONIC U LCER OF LEFT ANKLE W FAT LAYER EXPOSED SNOMED Code(s): 83736845965042704 Plan: 1patient with MRSA bacteremia secondary tricuspid valve endocarditis related to his IV drug use with evidence of large vegetation and septic emboli likely complicated endocarditis 2left lower extremity wound with no significant slough tissue surrounding redness or foul-smelling drainage 3blood culture has been repeated document clearance of bacteremia 4local wound care to the left lower extremity wound with the dry Aquacel silver dressing change every 48 hour 5-patient to continue vancomycin pharmacy to dose with a target trough of 15 while watching kidney function and Vanco trough closely. Patient is waiting for transfer to [facility] for angiovac procedure Dictation was produced using [employer] dictation software. please excuse any grammatical, word or spelling errors. Time with Patient: Less than 30
--- NOTE | 2023-03-08 15:54 | P.PN ---
Subjective Progress Note Date: 03/08/23 Principal diagnosis: MRSA bacteremia and tricuspid valve endocarditis Patient is a 27-year-old male with a past medical history significant for IV drug use patient apparently was recently admitted at [facility] with left lower leg abscess s/p surgical drainage, patient apparently left AGAINST MEDICAL ADVICE and subsequently presenting back to the hospital with delirium weakness fever and chills , patient did have evidence of MRSA bacteremia concerning for tricuspid valve endocarditis.the patient has developed left-sided pneumothorax requiring urgent chest tube placement on 03/07/2023 On today's evaluation that is 03/08/2023, the patient did have a fever of 100.1 degrees Fahrenheit at noon , patient is breathing comfortably on room air, the patient denies any worsening cough or sputum production no vomiting no abdominal pain or diarrhea Patient with white count slightly down to 18.2, creatinine 0.60, Vanco level is therapeutic at 17.4 Objective - Vital Signs Vital signs: Vital Signs Temp 99.7 F H 03/08/23 13:08 Pulse 134 H 03/08/23 14:00 Resp 35 H 03/08/23 14:00 BP 126/81 03/08/23 14:00 Pulse Ox 96 03/08/23 14:00 FiO2 Intake & Output 03/07/23 03/08/23 03/08/23 18:59 06:59 18:59 Intake Total 2310 2050 2070 Output Total 1430 845 850 Balance 880 1205 1220 Weight 70.5 kg 66.5 kg Intake: IV 1450 1450 1250 Magnesium Sulfate-D5w Pmx 200 1 gm In Dextrose/Water 1 100ml.bag @ 100 mls/hr IVPB Q1H [facility] Rx#: [id number] Sodium Chloride 0.9% 1, 1200 1200 800 000 ml @ 100 mls/hr IV . Q10H [facility] Rx#:[id number] Vancomycin 1,000 mg In 250 250 Sodium Chloride 0.9% 250 ml @ 125 mls/hr IVPB Q8H [facility] Rx#:[id number] Vancomycin 1,250 mg In 250 Sodium Chloride 0.9% 250 ml @ 125 mls/hr IVPB Q8HR [facility] Rx#:[id number] Oral 860 600 730 Blood Product 90 Rc As-1 Unit 90 [id number] Output: Chest Tube Drainage 680 95 295 Left Pleural 680 95 295 Urine 750 750 555 Other: Voiding Method Indwelling Catheter Indwelling Catheter Indwelling Catheter # Bowel Movements 0 - Exam GENERAL DESCRIPTION: Middle-aged male lying in bed in no distress RESPIRATORY SYSTEM: Unlabored breathing , decreased breath sounds at bases HEART: S1 S2 regular rate and rhythm , ABDOMEN: Soft , no tenderness EXTREMITIES: Left leg wound is currently dressed - Labs CBC & Chem 7: 03/08/23 06:56 03/08/23 06:56 Labs: Abnormal Lab Results - Last 24 Hours (Table) 03/08/23 03/08/23 03/08/23 Range/Units 06:56 06:56 10:04 WBC 18.2 H (3.8-10.6) k/uL RBC 2.26 L (4.30-5.90) m/uL Hgb 6.6 L* (13.0-17.5) gm/dL Hct 20.7 L (39.0-53.0) % RDW 18.0 H (11.5-15.5) % Sodium 132 L (137-145) mmol/L Chloride 111 H (98-107) mmol/L Carbon Dioxide 19 L (22-30) mmol/L Creatinine 0.60 L (0.66-1.25) mg/dL Glucose 110 H (74-99) mg/dL Calcium 7.3 L (8.4-10.2) mg/dL Crossmatch See Detail Microbiology - Last 24 Hours (Table) 03/05/23 12:40 Blood Culture Gram Stain - Final Blood Blood Culture - Final Methicillin resist S. aureus 03/06/23 04:03 Blood Culture Gram Stain - Preliminary Blood Blood Culture - Preliminary Presumptive MRSA Assessment and Plan (1) MRSA bacteremia Current Visit: Yes Status: Acute Code(s): R78.81 - BACTEREMIA; B95.62 - METHICILLIN RESIS STAPH INFCT CAUSING DISEASES [facility] SNOMED Code(s): 00409081421347913 (2) Bacterial endocarditis Current Visit: Yes Status: Acute Code(s): I33.0 - ACUTE AND SUBACUTE INFECTIVE ENDOCARDITIS SNOMED Code(s): 471851431 (3) Non-pressure chronic ulcer of left ankle with fat layer exposed Current Visit: Yes Status: Acute Code(s): L97.322 - NON-PRESSURE CHRONIC ULCER OF LEFT ANKLE W FAT LAYER EXPOSED SNOMED Code(s): 76016005408102465 Plan: 1patient with MRSA bacteremia secondary tricuspid valve endocarditis related to his IV drug use with evidence of large vegetation and septic emboli likely complicated endocarditis 2left lower extremity wound with no significant slough tissue surrounding redness or foul-smelling drainage 3blood culture has been repeated document clearance of bacteremia 4local wound care to the left lower extremity wound with the dry Aquacel silver dressing change every 48 hour 5-patient to continue vancomycin pharmacy to dose , while watching kidney function and Vanco trough closely which is therapeutic, we will add rifampin. Patient is currently waiting for transfer to [facility] for angiovac procedure Dictation was produced using [employer] dictation software. please excuse any grammatical, word or spelling errors.
--- NOTE | 2023-03-08 15:56 | PCN ---
PROCEDURE NOTE This is a Pulmonary/Critical Care Procedure PROCEDURE PERFORMED: Left internal jugular triple-lumen catheter. PREOPERATIVE DIAGNOSES: 1. Administration of fluids, pressors, and antibiotics. 2. Hypotension. POSTOPERATIVE DIAGNOSES: 1. Administration of fluids, pressors, and antibiotics. 2. Hypotension. FIRST EQUIPMENT MAINTENANCE TECHNICIAN: Dr. Ange Gustafson. There were informed consent and universal time-out. TRIPLE LUMEN CATHETER PLACEMENT: INDICATIONS: Administration of fluids, pressors, and antibiotics and hypotension. A time-out was completed verifying correct patient, procedure, site, positioning, and implant(s) or special equipment if applicable. The patient was placed in a dependent position appropriate for triple-lumen catheter placement based on the vein to be cannulated. The patient's left neck was prepped and draped in sterile fashion. We used the left internal jugular vein. We went via the posterior approach. The skin and deeper tissues were initially anesthetized with 1% lidocaine. A triple-lumen 9F Cordis catheter was introduced into the left internal jugular vein using Seldinger technique. The catheter was threaded smoothly over the guide wire and appropriate blood return was obtained. Each lumen of the catheter was evacuated of air and flushed with sterile saline. The catheter was then sutured in place to the skin, and a sterile dressing was applied by the nurse. Perfusion to the extremity distal to the point of catheter insertion was checked and found to be adequate. There were no immediate complications. There was good blood return from all 3 ports. The patient tolerated the procedure well. A stat chest x-ray was ordered to make sure there was no pneumothorax and to ensure that there was good positioning of the tip of the catheter at the junction of the right atrium and superior vena cava. MMODL / IJN: [id number] /
[2023-03-08] MEDS: LORazepam 2 MG/ML INJ IV PRN ×2 (16:24→20:41)
[2023-03-08] MEDS: rifAMPin 300 MG CAP PO SCH (17:27)
[2023-03-08 22:44] LABS: Anisocytosis Slight; HCT 24.7 % (39.0-53.0); HGB 7.9 gm/dL (13.0-17.5); Hypochromasia Slight; MCH 28.8 pg (25.0-35.0); Mean Platelet Volume 7.3; Platelet Count 423 k/uL (150-450); RBC 2.75 m/uL (4.30-5.90); RDW 17.5 % (11.5-15.5); WBC 19.5 k/uL (3.8-10.6)
[2023-03-08] MEDS: METOPROLOL SUCCINATE (ER) 25 MG TAB.ER.24H PO SCH (23:00)
[2023-03-08] MEDS ORDERED: ADENOSINE 3 MG/ML 2 ML VIAL IVP ONE (23:26)
[2023-03-08] MEDS: ADENOSINE 3 MG/ML 2 ML VIAL IVP ONE ×2 (23:26→23:28)
[2023-03-08] MEDS ORDERED: MORPHINE SULFATE 4 MG/ML SYRINGE IVP STA (23:33)
[2023-03-08] MEDS ORDERED: DILTIAZEM 5 MG/ML 5 ML VIAL IVP STA ×2 (23:40→23:45)
[2023-03-09] MEDS: ZOLPIDEM 5 MG TAB PO PRN
[2023-03-09] MEDS: KETOROLAC 15 MG/ML 1 ML VIAL IVP PRN ×2 (00:12→08:08)
[2023-03-09] MEDS: ACETAMINOPHEN TAB 325 MG TAB PO PRN (00:14)
[2023-03-09] MEDS ORDERED: DILTIAZEM 125 MG in SODIUM CHLORIDE 0.9% 100 ML IV SCH (00:30)
[2023-03-09] MEDS: VANCOMYCIN 1,250 MG in SODIUM CHLORIDE 0.9% 250 ML IVPB SCH ×2 (00:43→08:01)
[2023-03-09] MEDS: SODIUM CHLORIDE 0.9% 1,000 ML IV SCH ×2 (00:44→06:35)
[2023-03-09 01:33] LABS: ALT 114 U/L (4-49); AST 60 U/L (17-59); African American GFR (CKD) >90 (>60 ml/min/1.73 sqM); Albumin 1.6 g/dL (3.5-5.0); Alkaline Phosphatase 357 U/L (38-126); Anion Gap 5 mmol/L; Blood Urea Nitrogen 11 mg/dL (9-20); Calcium 6.8 mg/dL (8.4-10.2); Carbon Dioxide 17 mmol/L (22-30); Chloride 109 mmol/L (98-107); Glucose 109 mg/dL (74-99); Magnesium 1.6 mg/dL (1.6-2.3); Non-African American GFR(CKD) >90 (>60 ml/min/1.73 sqM); Sodium 131 mmol/L (137-145); Total Bilirubin 1.1 mg/dL (0.2-1.3); Total Protein 5.1 g/dL (6.3-8.2)
[2023-03-09] MEDS: MAGNESIUM SULFATE-D5W PMX 1 GM in DEXTROSE/WATER 1 100ML.BAG IVPB SCH ×2 (05:34→06:50)
[2023-03-09 05:38] LABS: African American GFR (CKD) >90 (>60 ml/min/1.73 sqM); Magnesium 1.7 mg/dL (1.6-2.3); Non-African American GFR(CKD) >90 (>60 ml/min/1.73 sqM)
[2023-03-09] MEDS: HYDROmorphone 1 MG/ML 1 ML SYRINGE IVP PRN (05:51)
--- NOTE | 2023-03-09 07:33 | P.PN ---
Subjective Progress Note Date: 03/09/23 PROGRESS NOTE The patient is a 27-year-old male with history of heroin use, last used on February 27 who was transferred from [facility]. He was admitted recently with evidence of infection in his foot with abscess. He was found to have tricuspid aortic valve vegetation and pulmonary septic embolization. He has symptoms of dyspnea but no chest discomfort. He denies any dizziness, palpi tations or syncope. He uses tobacco. He has no history of hypertension, hyperlipidemia or diabetes. March 06: He is feeling well overall, he denies any chest discomfort, dizziness or palpitations. He denies any nausea. He is in sinus tachycardia. His blood pressure is stable. He is scheduled to undergo a REY today and has been evaluated by the cardiothoracic team for possible intervention. He continues to be on vancomycin. He has low-grade fever. His echocardiogram done prior to transfer showed a large tricuspid valve presentations with moderate to severe tricuspid regurgitation. His cultures showed staph aureus methicillin resistant. His chest x-ray is consistent with septic embolization. March 07: The patient continues to be dyspneic and fatigued. He has respirophasic chest discomfort. His chest x-ray shows evidence of left sided pneumothorax. His REY yesterday showed evidence of large vegetation on the tricuspid valve with fulminant tricuspid regurgitation, [id number] pericardial effusion and preserved left ventricle systolic function. To be in sinus tachycardia. The plan according to the surgical team is to transfer him for further intervention on the tricuspid valve March 08: The patient continues to be dyspneic and has respirophasic chest discomfort. He underwent chest tube placement yesterday for treatment of his pneumothorax. He continues to have sinus tachycardia. He is awaiting bed transfer to [place] to undergo further intervention on his tricuspid valve. He continues to have low- grade fever. He denies any nausea or vomiting. There is no evidence of atrial fibrillation. March 09: The patient had episodes of what appears to be SVT yesterday. He was tried on adenosine and subsequently required cardioversion. He is in sinus tachycardia at this time. He continues to have dyspnea but no significant chest pain. He feels tired. He continues to have low-grade fever. His urine output is stable. He denies any nausea or vomiting. We are awaiting transfer to [place] to undergo further intervention on the tricuspid valve. Medications: Vancomycin, Ativan, event and, IV Cardizem, metoprolol succinate 25 mg daily PHYSICAL EXAMINATION: Blood pressure 112/70 heart rate 120, temperature 98.5 LUNGS: Decreased air exchange HEART: Regular rate and rhythm, tachycardic, S1, S2. No S3. Systolic murmur noted at the right lower sternal border ABDOMEN: Soft, nontender, no organomegaly EXTREMETIES: Dressing on the left foot LAB: Yesterday hemoglobin 7.9, WBC 19.5. His BUN today is 11 with a creatinine 0.61. Potassium 4.0. IMPRESSION: 1. 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 Abscess on the foot 3. History of intravenous drug use 4. History of tobacco use 5. Left-sided pneumothorax, status post chest tube 6. Episode of supraventricular tachyarrhythmia, back in sinus tachycardia 7. Anemia related to endocarditis with no evidence of bleeding. PLAN: 1. Continue IV antibiotics 2. Awaiting transfer for further intervention on the tricuspid valve 3. Prognosis is guarded Objective - Vital Signs Vital signs: Vital Signs Temp 98.5 F 03/09/23 04:00 Pulse 121 H 03/09/23 07:00 Resp 28 H 03/09/23 07:00 BP 112/73 03/09/23 07:00 Pulse Ox 97 03/09/23 07:00 FiO2 Intake & Output 03/08/23 03/09/23 03/09/23 18:59 06:59 18:59 Intake Total 2940 1350 10 Output Total 1270 1235 120 Balance 1670 115 -110 Weight 67 kg Intake: IV 1900 780 10 Magnesium Sulfate-D5w Pmx 200 100 1 gm In Dextrose/Water 1 100ml.bag @ 100 mls/hr IVPB Q1H [facility] Rx#: [id number] Sodium Chloride 0.9% 1, 1200 430 10 000 ml @ 100 mls/hr IV . Q10H [facility] Rx#:[id number] Vancomycin 1,250 mg In 500 250 Sodium Chloride 0.9% 250 ml @ 125 mls/hr IVPB Q8HR [facility] Rx#:[id number] Oral 730 570 Blood Product 310 Rc As-1 Unit 310 [id number] Output: Chest Tube Drainage 395 100 Left Pleural 395 100 Urine 875 1135 120 Other: Voiding Method Indwelling Catheter Indwelling Catheter - Labs CBC & Chem 7: 03/08/23 22:21 03/09/23 05:05 Labs: Abnormal Lab Results - Last 24 Hours (Table) 03/08/23 03/08/23 03/08/23 Range/Units 06:56 06:56 10:04 WBC 18.2 H (3.8-10.6) k/uL RBC 2.26 L (4.30-5.90) m/uL Hgb 6.6 L* (13.0-17.5) gm/dL Hct 20.7 L (39.0-53.0) % RDW 18.0 H (11.5-15.5) % Sodium 132 L (137-145) mmol/L Chloride 111 H (98-107) mmol/L Carbon Dioxide 19 L (22-30) mmol/L Creatinine 0.60 L (0.66-1.25) mg/dL Glucose 110 H (74-99) mg/dL Calcium 7.3 L (8.4-10.2) mg/dL AST (17-59) U/L ALT (4-49) U/L Alkaline Phosphatase (38-126) U/L Total Protein (6.3-8.2) g/dL Albumin (3.5-5.0) g/dL Crossmatch See Detail 03/08/23 03/09/23 03/09/23 Range/Units 22:21 01:00 05:05 WBC 19.5 H (3.8-10.6) k/uL RBC 2.75 L (4.30-5.90) m/uL Hgb 7.9 L (13.0-17.5) gm/dL Hct 24.7 L (39.0-53.0) % RDW 17.5 H (11.5-15.5) % Sodium 131 L (137-145) mmol/L Chloride 109 H (98-107) mmol/L Carbon Dioxide 17 L (22-30) mmol/L Creatinine 0.61 L 0.58 L (0.66-1.25) mg/dL Glucose 109 H (74-99) mg/dL Calcium 6.8 L (8.4-10.2) mg/dL AST 60 H (17-59) U/L ALT 114 H (4-49) U/L Alkaline Phosphatase 357 H (38-126) U/L Total Protein 5.1 L (6.3-8.2) g/dL Albumin 1.6 L (3.5-5.0) g/dL Crossmatch Microbiology - Last 24 Hours (Table) 03/07/23 08:19 Gram Stain - Preliminary Pleural Fluid 03/05/23 12:40 Blood Culture Gram Stain - Final Blood Blood Culture - Final Methicillin resist S. aureus 03/06/23 04:03 Blood Culture Gram Stain - Preliminary Blood Blood Culture - Preliminary Presumptive MRSA
[2023-03-09] MEDS: COLLAGENASE 250 UNIT/GM OINTMENT 30 GM TUBE TOPICAL SCH (08:01)
[2023-03-09] MEDS: PANTOPRAZOLE 40 MG/10 ML VIAL IV SCH (08:09)
[2023-03-09] MEDS: rifAMPin 300 MG CAP PO SCH (08:09)
[2023-03-09] MEDS: HEPARIN SODIUM,PORCINE 5,000 UNIT/ML 1 ML VIAL SQ SCH (08:09)
[2023-03-09] MEDS: METOPROLOL SUCCINATE (ER) 25 MG TAB.ER.24H PO SCH (08:09)
--- NOTE | 2023-03-09 08:25 | XR ---
EXAMINATION TYPE: XR chest 1V portable DATE OF EXAM: 03/09/2023 COMPARISON: 03/08/2023 HISTORY: Chest pain TECHNIQUE: Single frontal view of the chest is obtained. FINDINGS: Patchy infiltrates throughout both lung dumas persist with cavitary septic emboli seen bilaterally. There are bilateral pleural effusions. Left-sided chest tube with stable left-sided pneumothorax. Sub clavian central venous line unchanged in position. IMPRESSION: 1. Stable chest
[2023-03-09 08:49] VITALS: PULSE 128
--- NOTE | 2023-03-09 11:55 | P.PN ---
Subjective Progress Note Date: 03/09/23 Principal diagnosis: Endocarditis. Pulmonary consult dated 03/05/2023. This is a 27-year-old male who was transferred over from [facility], today, to [facility]. I was called by cardiology, who wanted the patient transferred over, because of endocarditis involving the tricuspid valve. The patient was apparently seen initially, on February 16, at [facility] for left ankle cellulitis. Patient was seen and, treated, surgically, with a wound VAC placement, and then left AGAINST MEDICAL ADVICE. The patient was seen subsequent to that [facility] on February 23. He went back to [facility], on February 27, apparently, under the effects of polysubstance overdose, and was admitted to the hospital. The patient has a history of ADHD, hepatitis C, IVDA, and depression. The patient's currently on room air, receiving vancomycin for his methicillin- resistant staph aureus sepsis, and endocarditis, and getting saline at 100 mL an hour. Laboratory data here includes a white count of 21.9, hemoglobin 9, hematocrit 27.4, and platelet count of 94,000. Sodium 132, potassium 4, chlorides 112, CO2 14, BUN 11, creatinine 0.63. Glucose 130. AST is 91, ALT is 115, and albumin is only 1.7. Chest x-ray shows too many to count cavitary lesions bilaterally. Progress note dated 03/06/2023. This is a 27-year-old male who was transferred from [facility] yesterday, because of tricuspid valve endocarditis. The patient's blood cultures were positive multiple times for methicillin-resistant staph aureus. The patient is on IV vancomycin. He is getting 2 L of oxygen, and saline at 100 mL an hour. The plan is to do a transesophageal echocardiogram today, and then transferred the patient to [facility], for a ANGIOVAC procedure. Clinically, the patient is stable. White count 19.6, hemoglobin 7.5, hematocrit 23, and a normal platelet count. Sodium 133, potassium 4.1, chlorides 112, CO2 17, the 110, and creatinine 0.6. Progress note dated 03/07/2023. 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 The patient was to be transferred, to an outside hospital, for a Angiovac procedure. Yesterday, the patient had a transesophageal echocardiogram. The patient is seen today in room 261. This morning, he was di scovered to have a left-sided pneumothorax, and a chest tube was placed by cardiothoracic surgery. It was a 24[place] chest tube. Currently, the patient's on 2 L of oxygen. He is receiving saline at 100 mL an hour. The patient has been accepted to the outside hospital, but, we are currently awai ting a bed. White count 21.2, hemoglobin 7, hematocrit 22.2, within normal platelet count. Sodium 134, potassium 3.9, chlorides 110, CO2 18, BUN 9, creatinine 0.54. Post chest tube chest x-ray shows proper placement of a left- sided chest tube, and near complete resolution of the left-sided thorax. Progress note dated 03/08/2023. 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 The patient is scheduled to go to an outside hospital, for a ANGIOVAC procedure. The patient did develop a left-sided pneumothorax, and a chest tube was placed by cardiothoracic surgery. He's seen today in room 261, intensive care unit. He is currently on room air. He is getting saline at 100 mL an hour. His hemoglobin this morning was 6.6. He will get 1 unit of packed red blood cells. He had an uneventful night according to the nurse. White count 18.2, hemoglobin 6.6, hematocrit 20.7, and platelet count normal. Sodium 132, potassium 4.1, chlorides 111, CO2 19, BUN 9, and creatinine 0.60. Chest x- ray today shows a left chest tube in place, without evidence of pneumothorax, and evidence of subcutaneous emphysema, with some patchy bibasilar infiltrates or atelectasis, right greater than left. Progress note dated 03/09/2023. 27-year-old male with history of methicillin-resistant staphylococcal aureus tricuspid valve endocarditis. The patient had a central line placed yesterday by myself. In addition, the patient is scheduled to go to an outside hospital for a ANGIOVAC procedure. Currently, the patient is seen in the intensive care unit, room 261. The patient's currently on 2 L of oxygen. He is getting saline at 10 mL an hour, and Cardizem drip at 5 mg an hour yesterday, he developed severe tachycardia, had adenosine for 3 doses, various doses of Cardizem, and then was cardioverted with 50 J. He continues on vancomycin, for his MRSA infection. Labs today include a sodium 131, potassium 4, chlorides 109, CO2 17, BUN 11, creatinine 0.61. Albumin is 1.6. Chest x-ray is stable. Objective - Vital Signs Vital signs: Vital Signs Temp 98.6 F 03/09/23 08:00 Pulse 128 H 03/09/23 11:00 Resp 48 H 03/09/23 11:00 BP 118/69 03/09/23 11:00 Pulse Ox 96 03/09/23 10:00 FiO2 Intake & Output 03/08/23 03/09/23 03/09/23 18:59 06:59 18:59 Intake Total 2940 1350 275 Output Total 1270 1235 470 Balance 1670 115 -195 Weight 67 kg Intake: IV 1900 780 275 Magnesium Sulfate-D5w Pmx 200 100 100 1 gm In Dextrose/Water 1 100ml.bag @ 100 mls/hr IVPB Q1H [facility] Rx#: [id number] Sodium Chloride 0.9% 1, 1200 430 50 000 ml @ 100 mls/hr IV . Q10H [facility] Rx#:[id number] Vancomycin 1,250 mg In 500 250 125 Sodium Chloride 0.9% 250 ml @ 125 mls/hr IVPB Q8HR [facility] Rx#:[id number] Oral 730 570 Blood Product 310 Rc As-1 Unit 310 [id number] Output: Chest Tube Drainage 395 100 Left Pleural 395 100 Urine 875 1135 470 Other: Voiding Method Indwelling Catheter Indwelling Catheter Indwelling Catheter - Exam No acute distress, oriented 3. 2 L saturation is 96%. HEENT examination is grossly unremarkable. Neck supple. Full range of motion. No adenopathy thyromegaly or neck vein distention. Cardiovascular examination reveals regular rhythm rate. S1-S2 normal. No S3 or S4. No discernible murmur noted. Heart rate 110 bpm. Lungs reveal scattered bilateral rhonchi. No wheezes or crackles. Room air saturation is 98%. A left-sided 24[place] chest tube is noted. Abdomen soft bowel sounds are heard. No masses or tenderness. Extremities are intact. No cyanosis clubbing or edema. Left ankle wound, partially open, with sutures in place. Skin is without rash or lesion. Neurologic examination is brief but nonfocal. - Labs CBC & Chem 7: 03/08/23 22:21 03/09/23 05:05 Labs: Abnormal Lab Results - Last 24 Hours (Table) 03/08/23 03/08/23 03/09/23 Range/Units 10:04 22:21 01:00 WBC 19.5 H (3.8-10.6) k/uL RBC 2.75 L (4.30-5.90) m/uL Hgb 7.9 L (13.0-17.5) gm/dL Hct 24.7 L (39.0-53.0) % RDW 17.5 H (11.5-15.5) % Sodium 131 L (137-145) mmol/L Chloride 109 H (98-107) mmol/L Carbon Dioxide 17 L (22-30) mmol/L Creatinine 0.61 L (0.66-1.25) mg/dL Glucose 109 H (74-99) mg/dL Calcium 6.8 L (8.4-10.2) mg/dL AST 60 H (17-59) U/L ALT 114 H (4-49) U/L Alkaline Phosphatase 357 H (38-126) U/L Total Protein 5.1 L (6.3-8.2) g/dL Albumin 1.6 L (3.5-5.0) g/dL Crossmatch See Detail 03/09/23 Range/Units 05:05 WBC (3.8-10.6) k/uL RBC (4.30-5.90) m/uL Hgb (13.0-17.5) gm/dL Hct (39.0-53.0) % RDW (11.5-15.5) % Sodium (137-145) mmol/L Chloride (98-107) mmol/L Carbon Dioxide (22-30) mmol/L Creatinine 0.58 L (0.66-1.25) mg/dL Glucose (74-99) mg/dL Calcium (8.4-10.2) mg/dL AST (17-59) U/L ALT (4-49) U/L Alkaline Phosphatase (38-126) U/L Total Protein (6.3-8.2) g/dL Albumin (3.5-5.0) g/dL Crossmatch Microbiology - Last 24 Hours (Table) 03/07/23 08:19 Gram Stain - Preliminary Pleural Fluid 03/05/23 12:40 Blood Culture Gram Stain - Final Blood Blood Culture - Final Methicillin resist S. aureus 03/06/23 04:03 Blood Culture Gram Stain - Preliminary Blood Blood Culture - Preliminary Presumptive MRSA Assessment and Plan Assessment: Methicillin-resistant staph aureus sepsis, with tricuspid valve endocarditis, and multiple bilateral cavitary pulmonary lesions. Spontaneous left-sided pneumothorax, 03/07/2023,S/P 24[place] chest tube placement. History of intravenous drug abuse. History of depression. History of ADHD. Left ankle cellulitis. Status post 1 unit of PRBCs, for anemia. Plan: Plan dated 03/05/2023. The patient is transferred over from [facility], to [facility]. The patient will be seen by cardiology, and also be seen by cardiothoracic surgery. I did speak to cardiology earlier today, and except for the patient into the intensive care unit. The patient should be started back on vancomycin. The patient's chest x-ray is quite concerning, as it has multiple bilateral cavitary lesions. There are too many to count. Additional recommendations and suggestions are forthcoming. Prognosis is guarded. We will continue to follow make recommendations along the way. Plan dated 03/06/2023. The patient is going to have a transesophageal echocardiogram. Subsequent to that, the patient is going to be transferred to [facility], for a ANGIOVAC procedure. The patient has been stable overnight. He is currently on 2 L of oxygen. He continues on vancomycin. He is getting saline at 100 mL an hour. We will continue to follow the patient, and make recommendations along the way. His chest x-ray shows multiple comminuted count bilateral cavitary lesion, consistent with septic emboli. Plan dated 03/07/2023. The patient had a transesophageal echocardiogram yesterday, which showed a 1.5 cm vegetation on the tricuspid valve. The patient is to be transferred to an outside hospital, for a another procedure. The patient developed spontaneous left-sided pneumothorax this morning, and cardiothoracic surgery placed a #24- [place] chest tube. The lung has been fully reexpanded. The patient currently is stable. He's on 2 L of oxygen. He is receiving saline at 100 mL an hour. Labs, x-rays, and medications are reviewed. Prognosis is certainly guarded. He continues on vancomycin. Plan dated 03/08/2023. The patient is scheduled to be transferred to an outside hospital, for the ANGIOVAC procedure. Labs, x-rays, medications are reviewed. The left-sided pneumothorax does not appear to be present on today's chest x-ray. There is not a leak from the left-sided chest tube either. Labs, x-rays, and medications are reviewed. The patient's overall prognosis remains very guarded. He continues on vancomycin for his methicillin-resistant staphylococcal aureus tricuspid valve endocarditis. We will continue to follow the patient make recommendations along the way. Plan dated 03/09/2023. The patient is waiting to be transferred to the outside hospital, for a procedure, as it relates to his tricuspid endocarditis. Currently he is on 2 L. Last night, he had issues with rhythm abnormalities, and received adenosine, Cardizem, and then was cardioverted. The patient's currently on Cardizem 5 mg an hour, and saline at 10 mL an hour. He is getting oxygen at 2 L. Labs, x- rays, and medications are reviewed. His chest x-ray stable. We will continue to follow and make recommendations along the way. I placed a central line yesterday. Time with Patient: Greater than 30
[2023-03-09 13:27] VITALS: BP 113/72; RESP 26; TEMP 98.1
--- NOTE | 2023-03-09 15:16 | P.PN ---
Subjective Progress Note Date: 03/09/23 Principal diagnosis: MRSA bacteremia and tricuspid valve endocarditis Patient is a 27-year-old male with a past medical history significant for IV drug use patient apparently was recently admitted at [facility] with left lower leg abscess s/p surgical drainage, patient apparently left AGAINST MEDICAL ADVICE and subsequently presenting back to the hospital with delirium weakness fever and chills , patient did have evidence of MRSA bacteremia concerning for tricuspid valve endocarditis.the patient has developed left-sided pneumothorax requiring urgent chest tube placement on 03/07/2023 On today's evaluation that is 03/09/2023, the patient is afebrile this morning the patient is breathing comfortably on room air without need for supplemental oxygen, the patient left-sided chest pain has decreased in intensity and denies any worsening cough, patient denies nausea/vomiting , no diarrhea and no abdominal pain Patient with white count of 98.5 as of yesterday, creatinine 0.58, Objective - Vital Signs Vital signs: Vital Signs Temp 98.6 F 03/09/23 08:00 Pulse 128 H 03/09/23 11:00 Resp 48 H 03/09/23 11:00 BP 118/69 03/09/23 11:00 Pulse Ox 96 03/09/23 10:00 FiO2 Intake & Output 03/08/23 03/09/23 03/09/23 18:59 06:59 18:59 Intake Total 2940 1350 275 Output Total 1270 1235 470 Balance 1670 115 -195 Weight 67 kg Intake: IV 1900 780 275 Magnesium Sulfate-D5w Pmx 200 100 100 1 gm In Dextrose/Water 1 100ml.bag @ 100 mls/hr IVPB Q1H [facility] Rx#: [id number] Sodium Chloride 0.9% 1, 1200 430 50 000 ml @ 100 mls/hr IV . Q10H [facility] Rx#:[id number] Vancomycin 1,250 mg In 500 250 125 Sodium Chloride 0.9% 250 ml @ 125 mls/hr IVPB Q8HR [facility] Rx#:[id number] Oral 730 570 Blood Product 310 Rc As-1 Unit 310 [id number] Output: Chest Tube Drainage 395 100 Left Pleural 395 100 Urine 875 1135 470 Other: Voiding Method Indwelling Catheter Indwelling Catheter Indwelling Catheter - Exam GENERAL DESCRIPTION: Middle-aged male lying in bed in no distress RESPIRATORY SYSTEM: Unlabored breathing , decreased breath sounds at bases HEART: S1 S2 regular rate and rhythm , ABDOMEN: Soft , no tenderness EXTREMITIES: Left leg wound is currently dressed - Labs CBC & Chem 7: 03/08/23 22:21 03/09/23 05:05 Labs: Abnormal Lab Results - Last 24 Hours (Table) 03/08/23 03/08/23 03/09/23 Range/Units 10:04 22:21 01:00 WBC 19.5 H (3.8-10.6) k/uL RBC 2.75 L (4.30-5.90) m/uL Hgb 7.9 L (13.0-17.5) gm/dL Hct 24.7 L (39.0-53.0) % RDW 17.5 H (11.5-15.5) % Sodium 131 L (137-145) mmol/L Chloride 109 H (98-107) mmol/L Carbon Dioxide 17 L (22-30) mmol/L Creatinine 0.61 L (0.66-1.25) mg/dL Glucose 109 H (74-99) mg/dL Calcium 6.8 L (8.4-10.2) mg/dL AST 60 H (17-59) U/L ALT 114 H (4-49) U/L Alkaline Phosphatase 357 H (38-126) U/L Total Protein 5.1 L (6.3-8.2) g/dL Albumin 1.6 L (3.5-5.0) g/dL Crossmatch See Detail 03/09/23 Range/Units 05:05 WBC (3.8-10.6) k/uL RBC (4.30-5.90) m/uL Hgb (13.0-17.5) gm/dL Hct (39.0-53.0) % RDW (11.5-15.5) % Sodium (137-145) mmol/L Chloride (98-107) mmol/L Carbon Dioxide (22-30) mmol/L Creatinine 0.58 L (0.66-1.25) mg/dL Glucose (74-99) mg/dL Calcium (8.4-10.2) mg/dL AST (17-59) U/L ALT (4-49) U/L Alkaline Phosphatase (38-126) U/L Total Protein (6.3-8.2) g/dL Albumin (3.5-5.0) g/dL Crossmatch Microbiology - Last 24 Hours (Table) 03/07/23 08:19 Gram Stain - Preliminary Pleural Fluid 03/05/23 12:40 Blood Culture Gram Stain - Final Blood Blood Culture - Final Methicillin resist S. aureus 03/06/23 04:03 Blood Culture Gram Stain - Preliminary Blood Blood Culture - Preliminary Presumptive MRSA Assessment and Plan (1) MRSA bacteremia Status: Acute Code(s): R78.81 - BACTEREMIA; B95.62 - METHICILLIN RESIS STAPH INFCT CAUSING DISEASES CLASSD [id number] SNOMED Code(s): 54842940157508086 (2) Bacterial endocarditis Status: Acute Code(s): I33.0 - ACUTE AND SUBACUTE INFECTIVE ENDOCARDITIS SNOMED Code(s): 195470206 (3) Non-pressure chronic ulcer of left ankle with fat layer exposed Status: Acute Code(s): L97.322 - NON-PRESSURE CHRONIC ULCER OF LEFT ANKLE W FAT LAYER EXPOSED SNOMED Code(s): 77378208085386769 Plan: 1patient with MRSA bacteremia secondary tricuspid valve endocarditis related to his IV drug use with evidence of large vegetation and septic emboli likely complicated endocarditis 2left lower extremity wound with no significant slough tissue surrounding redness or foul-smelling drainage 3blood culture has been repeated document clearance of bacteremia 4local wound care to the left lower extremity wound with the dry Aquacel silver dressing change every 48 hour 5-patient to continue vancomycin pharmacy to dose and rifampin. Patient possible transfer to [facility] for angiovac procedure this afternoon Dictation was produced using [employer] dictation software. please excuse any grammatical, word or spelling errors. Time with Patient: Less than 30
--- NOTE | 2023-03-10 03:35 | PN ---
PROGRESS NOTE DATE OF SERVICE: 03/09/2023 CHIEF COMPLAINT: Bacterial endocarditis and left pneumothorax. HISTORY OF PRESENT ILLNESS: This gentleman is stable and awaits transfer to [place]. REVIEW OF SYSTEMS: He is currently not particularly short of breath, and he has no chills or chest pain. PHYSICAL EXAMINATION: VITAL SIGNS: Normal. LUNGS: Breath sounds are heard on both sides. CARDIAC: Normal. IMPRESSION: 1. Bacterial endocarditis of the tricuspid valve. 2. Methamphetamine addiction and overdose. 3. Left-sided pneumothorax. PLAN: Await transfer to [facility]. MMODL / IJN: [id number] /
--- NOTE | 2023-03-10 04:46 | DS ---
DISCHARGE SUMMARY CHIEF COMPLAINT: Infected heart valve. HISTORY OF PRESENT ILLNESS AND PHYSICAL EXAMINATION: Details of this man's history and physical can be found in the initial workup. LABORATORY STUDIES: While he is in the hospital, he had laboratory studies, details of which can be found in the laboratory section of his chart. COURSE IN THE HOSPITAL: After admission, he was started on IV antibiotics. He was seen and followed by Cardiology, Cardiac Surgery, and Infectious Disease as well as Intensive Medicine/Pulmonology. Decision was made that he should be transferred to a tertiary hospital and arrangements were made for him to go to [facility] in [place]. However, along the way, he developed a left-sided pneumothorax and chest tube was placed. There was a delay in transfer due to lack of beds, but he was cleared to go on the . FINAL DIAGNOSES: 1. Bacterial endocarditis of the tricuspid valve. 2. 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 3. Left-sided pneumothorax. 4. Methamphetamine overdose and addiction. OPERATIONS: None. CONSULTATIONS: Cardiology, Pulmonology, Infectious Disease, and Cardiac Surgery. CONDITION: He is improved. MMODL / IJN: [id number] /
[2023-03-10] MEDS ORDERED: VANCOMYCIN TROUGH DUE 1 EACH MISC MISCELLANE ONE (07:00)
== END 2023-03-09 12:45 | disposition short-term general hospital (02) | DRG 720 ==
LOC: 2SICU 03-05 11:34
PROVIDERS: ADMIT Family Medicine; ATTEND Family Medicine
PROC: B246ZZ4 Ultrasonography of Right and Left Heart, Transesophageal (ICD-10-PCS; 2023-03-06)
PROC: 0W9B30Z Drainage of Left Pleural Cavity with Drainage Device, Percutaneous Approach (ICD-10-PCS; 2023-03-07)
PROC: 05HC33Z Insertion of Infusion Device into Left Basilic Vein, Percutaneous Approach (ICD-10-PCS; 2023-03-08)
PROC: 30233N1 Transfusion of Nonautologous Red Blood Cells into Peripheral Vein, Percutaneous Approach (ICD-10-PCS; principal; 2023-03-08 08:25)
PROC: 02HV33Z Insertion of Infusion Device into Superior Vena Cava, Percutaneous Approach (ICD-10-PCS; 2023-03-09)
PROC: B5181ZA Fluoroscopy of Superior Vena Cava using Low Osmolar Contrast, Guidance (ICD-10-PCS; 2023-03-09)
PROC: B548ZZA Ultrasonography of Superior Vena Cava, Guidance (ICD-10-PCS; 2023-03-09)
DX: A41.02 Sepsis due to Methicillin resistant Staphylococcus aureus (principal); I33.0 Acute and subacute infective endocarditis; I76 Septic arterial embolism; I31.39 Other pericardial effusion (noninflammatory); J90 Pleural effusion, not elsewhere classified; L97.322 Non-pressure chronic ulcer of left ankle with fat layer exposed; J93.9 Pneumothorax, unspecified; B19.20 Unspecified viral hepatitis C without hepatic coma; F11.10 Opioid abuse, uncomplicated; L03.116 Cellulitis of left lower limb; J93.82 Other air leak; F17.210 Nicotine dependence, cigarettes, uncomplicated; D64.9 Anemia, unspecified; F15.20 Other stimulant dependence, uncomplicated; T43.651A Poisoning by methamphetamines accidental (unintentional), initial encounter; F17.290 Nicotine dependence, other tobacco product, uncomplicated; F05 Delirium due to known physiological condition; L02.612 Cutaneous abscess of left foot; I07.1 Rheumatic tricuspid insufficiency; I47.10 Supraventricular tachycardia, unspecified; M86.8X7 Other osteomyelitis, ankle and foot; Z53.29 Procedure and treatment not carried out because of patient's decision for other reasons; Z86.14 Personal history of Methicillin resistant Staphylococcus aureus infection
CPT/HCPCS: 71045; 80048; 80053; 80202; 81001; 82310; 82565; 83735; 84100; 84145; 85025; 85027; 85610; 85652; 85730; 86140; 86850; 86900; 86901; 86920; 87040; 87070; 87077; 87186; 87205; 93312; 93320; 93325

== ENCOUNTER 2023-06-07 17:01 | Emergency (ER) | payer OTHER ==
--- NOTE | 2023-06-07 17:48 | ED ---
General Adult HPI - General Chief complaint: Overdose Stated complaint: Overdose Time Seen by Provider: 06/07/23 17:03 Source: patient, RN notes reviewed, old records reviewed Mode of arrival: EMS Limitations: no limitations - History of Present Illness Initial comments: 27-year-old male presents status post overdose, patient admits to IV heroin. He was found unresponsive by family member and intranasal Narcan was administered. Upon paramedics arrival patient was awake and alert with no hypoxia, no apnea. He was transported in stable condition without further need for additional Narcan. Patient states this was accidental and was not an intentional overdose. Patient without physical complaint at this time. - Related Data Home Medications Medication Instructions Recorded Confirmed No Known Home Medications 03/05/23 03/05/23 Allergies Allergy/AdvReac Type Severity Reaction Status Date / Time cephalexin [From Keflex] Allergy Rash/Hives Verified 03/05/23 12:45 sulfamethoxazole Allergy Rash/Hives, Verified 03/05/23 12:32 [From Bactrim] Swelling trimethoprim [From Bactrim] Allergy Rash/Hives, Verified 03/05/23 12:32 Swelling Review of Systems ROS Statement: Those systems with pertinent positive or pertinent negative responses have been documented in the HPI. ROS Other: All systems not noted in ROS Statement are negative. Past Medical History Past Medical History: Liver Disease Additional Past Medical History / Comment(s): Hep C History of Any Multi-Drug Resistant Organisms: MRSA Date of last positivie culture/infection: 03/07/23 MDRO Source:: Pleural Fluid Past Surgical History: Orthopedic Surgery Additional Past Surgical History / Comment(s): I & D left ankle 02/16/23 Past Anesthesia/Blood Transfusion Reactions: No Reported Reaction Past Psychological History: Depression Smoking Status: Former smoker, Vaper Past Alcohol Use History: None Reported Past Drug Use History: Heroin - Past Family History Mother History Unknown: Yes Additional Family Medical History / Comment(s): Mother from overdose, age unknown. Father History Unknown: Yes Additional Family Medical History / Comment(s): Patient never met his father. General Exam Limitations: no limitations General appearance: alert, in no apparent distress Head exam: Present: atraumatic, normocephalic Eye exam: Present: normal appearance, PERRL ENT exam: Present: normal exam Neck exam: Present: normal inspection. Absent: tenderness, meningismus Respiratory exam: Present: normal lung sounds bilaterally. Absent: respiratory distress, wheezes Cardiovascular Exam: Present: regular rate, normal rhythm GI/Abdominal exam: Present: soft. Absent: distended, tenderness, guarding Extremities exam: Present: normal inspection, normal capillary refill Neurological exam: Present: alert, oriented X3, CN II-XII intact. Absent: motor sensory deficit Psychiatric exam: Present: normal affect, normal mood Skin exam: Present: warm, dry, intact. Absent: cyanosis, diaphoretic Course Vital Signs 06/07/23 17:09 Temperature 98.1 F Pulse Rate 119 H Respiratory 18 Rate Blood Pressure 134/97 O2 Sat by Pulse 100 Oximetry Medical Decision Making - Medical Decision Making Was pt. sent in by a medical professional or institution (, SALINA, POLICE PAT[employer]OL LIEUTENANT, urgent care, hospital, or custodial...) When possible be specific @ -No Did you speak to anyone other than the patient for history (EMS, parent, family, police, friend...)? What history was obtained from this source @ -No Did you review nursing and triage notes (agree or disagree)? Why? @ -I reviewed and agree with nursing and triage notes Were old charts reviewed (outside hosp., previous admission, EMS record, old EKG, old radiological studies, urgent care reports/EKG's, custodial records)? Report findings @ -No old charts were reviewed Differential Diagnosis (chest pain, altered mental status, abdominal pain women, abdominal pain men, vaginal bleeding, weakness, fever, dyspnea, syncope, headache, dizziness, GI bleed, back pain, seizure, CVA, palpatations, mental health, musculoskeletal)? @ Accidental opiate overdose EKG interpreted by me (3pts min.). @ -As above X-rays interpreted by me (1pt min.). @ -None done CT interpreted by me (1pt min.). @ -None done U/S interpreted by me (1pt. min.). @ -None done What testing was considered but not performed or refused? (CT, X-rays, U/S, labs)? Why? @ -None What meds were considered but not given or refused? Why? @ -None Did you discuss the management of the patient with other professionals (professionals i.e. SALINA Marie, POLICE PATROL LIEUTENANT, lab, RT, psych nurse, social service liaison, fatback trimmer, teacher, marketing and communications officer, case liner)? Give summary @ -No Was smoking cessation discussed for >3mins.? @ -No Was critical care preformed (if so, how long)? @ -No Were there social determinants of health that impacted care today? How? (Homelessness, low income, unemployed, alcoholism, drug addiction, transportation, low edu. Level, literacy, decrease access to med. care, fpc, rehab)? @ -No Was there de-escalation of care discussed even if they declined (Discuss DNR or withdrawal of care, Hospice)? DNR status @ -No What co-morbidities impacted this encounter? (DM, HTN, Smoking, COPD, CAD, Cancer, CVA, ARF, Chemo, Hep., AIDS, mental health diagnosis, sleep apnea, morbid obesity)? @ -None Was patient admitted / discharged? Hospital course, mention meds given and route, prescriptions, significant lab abnormalities, going to OR and other pertinent info. @ 27-year-old male with accidental heroin overdose. Patient observed in the emergency department for 90 minutes without need for further Narcan. Patient patient eager for discharge. Undiagnosed new problem with uncertain prognosis? @ -No Drug Therapy requiring intensive monitoring for toxicity (Heparin, Nitro, Insulin, Cardizem)? @ -No Were any procedures done? @ -No Diagnosis/symptom? @ Opiate overdose Acute, or Chronic, or Acute on Chronic? @ Acute Uncomplicated (without systemic symptoms) or Complicated (systemic symptoms)? @ -default Side effects of treatment? @ -No Exacerbation, Progression, or Severe Exacerbation? @ -No Poses a threat to life or bodily function? How? (Chest pain, [place], [place], pneumonia, PE, COPD, DKA, ARF, appy, cholecystitis, CVA, Diverticulitis, Homicidal, Suicidal, threat to staff... and all critical care pts) @ -[Yes, accidental overdose Disposition Clinical Impression: Accidental drug overdose Disposition: HOME SELF-CARE Condition: Fair Instructions (If sedation given, give patient instructions): Adult Overdose (ED) Is patient prescribed a controlled substance at d/c from ED?: No Referrals: None,Stated [Primary Care Provider] - 1-2 days Time of Disposition: 18:30
[2023-06-07 18:46] VITALS: BP 115/77; PULSE 110; RESP 16; TEMP 97.5
== END 2023-06-07 19:31 | disposition home or self-care (01) ==
LOC: EC 17:01
DX: T40.1X1A Poisoning by heroin, accidental (unintentional), initial encounter (principal); F17.290 Nicotine dependence, other tobacco product, uncomplicated; Z88.1 Allergy status to other antibiotic agents; Z88.2 Allergy status to sulfonamides
CPT/HCPCS: 99283

== ENCOUNTER 2023-11-11 19:17 | Inpatient (IN) | payer OTHER ==
[2023-11-11] MEDS: BENZONATATE 100 MG CAP PO STA (19:57)
--- NOTE | 2023-11-11 19:57 | ED ---
General Adult HPI - General Chief complaint: Upper Respiratory Infection Stated complaint: Cough Time Seen by Provider: 11/11/23 19:26 Source: patient, RN notes reviewed, old records reviewed Mode of arrival: ambulatory Limitations: no limitations - History of Present Illness Initial comments: 27-year-old male who has a past medical history significant for prior bacterial endocarditis of the tricuspid valve who is currently an IV drug user, reports using IV opiates "a few weeks ago", presenting to the ED with chief complaint of cough. Reports dry cough for the last 3 days. Notes associated fever with this. States that he cannot stop coughing and due to this feels short of breath. Denies chest pain at this time. Denies abdominal pain or changes in bowel or bladder habits. No other complaints at this time. Of note, patient was seen at [facility] sometime a week to 2 weeks ago. Was also diagnosed with endocarditis at this time. Reports he finished IV antibiotics, daptomycin, 1 week ago. Currently trying to contact [facility] for record review. - Related Data Home Medications Medication Instructions Recorded Confirmed Ivabradine HCl [Corlanor] 5 mg PO BID 06/07/23 06/07/23 cloNIDine HCL 0.1 mg PO Q8H PRN 06/07/23 06/07/23 Allergies Allergy/AdvReac Type Severity Reaction Status Date / Time cephalexin [From Keflex] Allergy Rash/Hives Verified 11/11/23 19:36 sulfamethoxazole Allergy Rash/Hives, Verified 11/11/23 19:36 [From Bactrim] Swelling trimethoprim [From Bactrim] Allergy Rash/Hives, Verified 11/11/23 19:36 Swelling Review of Systems ROS Statement: Those systems with pertinent positive or pertinent negative responses have been documented in the HPI. ROS Other: All systems not noted in ROS Statement are negative. Past Medical History Past Medical History: Liver Disease Additional Past Medical History / Comment(s): Hep C History of Any Multi-Drug Resistant Organisms: MRSA Date of last positivie culture/infection: 03/07/23 MDRO Source:: Pleural Fluid Past Surgical History: Orthopedic Surgery Additional Past Surgical History / Comment(s): I & D left ankle 02/16/23 Past Anesthesia/Blood Transfusion Reactions: No Reported Reaction Past Psychological History: Depression Smoking Status: Former smoker, Vaper Past Alcohol Use History: None Reported Past Drug Use History: Heroin - Past Family History Mother History Unknown: Yes Additional Family Medical History / Comment(s): Mother from overdose, age unknown. Father History Unknown: Yes Additional Family Medical History / Comment(s): Patient never met his father. General Exam Limitations: no limitations General appearance: alert Eye exam: Present: normal appearance Neck exam: Present: normal inspection Respiratory exam: Present: decreased breath sounds, other (Constant dry cough) Cardiovascular Exam: Present: regular rate GI/Abdominal exam: Present: soft, normal bowel sounds. Absent: distended, tenderness, guarding, rebound, rigid Neurological exam: Present: alert, oriented X3 Skin exam: Present: warm, dry Course Vital Signs 11/11/23 11/11/23 19:29 21:17 Temperature 103.1 F H 99.8 F H Pulse Rate 83 105 H Respiratory 24 16 Rate Blood Pressure 112/51 107/79 O2 Sat by Pulse 94 L 100 Oximetry Medical Decision Making - Medical Decision Making Was pt. sent in by a medical professional or institution (, PA, PLASTERING CONTRACTOR, urgent care, hospital, or group home...) When possible be specific @ -No Did you speak to anyone other than the patient for history (EMS, parent, family, police, friend...)? What history was obtained from this source @ -No Did you review nursing and triage notes (agree or disagree)? Why? @ -I reviewed and agree with nursing and triage notes Were old charts reviewed (outside hosp., previous admission, EMS record, old EKG, old radiological studies, urgent care reports/EKG's, group home records)? Report findings @ -Reviewed prior history showing history of bacterial endocarditis of tricuspid valve. Differential Diagnosis (chest pain, altered mental status, abdominal pain women, abdominal pain men, vaginal bleeding, weakness, fever, dyspnea, syncope, headache, dizziness, GI bleed, back pain, seizure, CVA, palpatations, mental health, musculoskeletal)? @ -Differential Dyspnea: Coronary syndrome, arrhythmia, tamponade, asthma, COPD, pulmonary embolism, pneumonia, pneumothorax, pulmonary effusion, anaphylaxis, diabetic ketoacidosis, flailed chest, pulmonary contusion, diaphragmatic rupture, anemia, neuromuscular, this is not meant to be an all-inclusive list. EKG interpreted by me (3pts min.). @ -EKG interpreted me showing a sinus tachycardia at 109 bpm with an incomplete right bundle branch block with nonspecific ST CA 137, QRS 96, QT/QTc 341/405. X-rays interpreted by me (1pt min.). @ -Chest x-ray interpreted me which revealed persistent interstitial opacities compared to 03/09/2023 likely representing scarring. Also some airspace opacities of the spine on lateral view possibly scarring versus pneumonia. CT interpreted by me (1pt min.). @ -CT angio chest interpreted me which revealed no evidence of pulmonary embolism. There are groundglass opacities throughout the lungs. U/S interpreted by me (1pt. min.). @ -None done What testing was considered but not performed or refused? (CT, X-rays, U/S, labs)? Why? @ -None What meds were considered but not given or refused? Why? @ -None Did you discuss the management of the patient with other professionals (professionals i.e. , PA, PLASTERING CONTRACTOR, lab, RT, psych nurse, social welfare clerk, policy checker, teacher, labor relations officer, counseling case manager)? Give summary @ -Case discussed with Helen who accepts admission under [facility]. Was smoking cessation discussed for >3mins.? @ -No Was critical care preformed (if so, how long)? @ -No Were there social determinants of health that impacted care today? How? (Homelessness, low income, unemployed, alcoholism, drug addiction, transportation, low edu. Level, literacy, decrease access to med. care, f[facility], rehab)? @ -No Was there de-escalation of care discussed even if they declined (Discuss DNR or withdrawal of care, Hospice)? DNR status @ -No What co-morbidities impacted this encounter? (DM, HTN, Smoking, COPD, CAD, Cancer, CVA, ARF, Chemo, Hep., AIDS, mental health diagnosis, sleep apnea, morbid obesity)? @ -History of IV drug use Was patient admitted / discharged? Hospital course, mention meds given and route, prescriptions, significant lab abnormalities, going to OR and other pertinent info. @ -Admission 27-year-old male presenting to the ED with complaints of cough fever. Patient reports he was recently discharged from [facility] a week to a week and a half ago after treatment for endocarditis. Reports he finished daptomycin last week. Currently in contact with the hospital to receive their medical records. Laboratory studies reviewed. Labs do show an elevated white blood cell count 15.8. Chemistry panel shows some slight hyponatremia at 130. Otherwise largely unremarkable. Troponin undetectable. Serology panel unremarkable. CT of the chest does show groundglass opacities. Patient high risk with recent treatment for endocarditis. Will be admitted. Empirically treated with antibiotics. Consult to infectious disease and cardiology. Echo ordered. Undiagnosed new problem with uncertain prognosis? @ -No Drug Therapy requiring intensive monitoring for toxicity (Heparin, Nitro, Insulin, Cardizem)? @ -No Were any procedures done? @ -No Diagnosis/symptom? @ -Cough, fever Acute, or Chronic, or Acute on Chronic? @ -Acute Uncomplicated (without systemic symptoms) or Complicated (systemic symptoms)? @ -Complicated Side effects of treatment? @ -No Exacerbation, Progression, or Severe Exacerbation? @ -No Poses a threat to life or bodily function? How? (Chest pain, [place], [place], pneumonia, PE, COPD, DKA, ARF, appy, cholecystitis, CVA, Diverticulitis, Homicidal, Suicidal, threat to staff... and all critical care pts) @ -Possibly - Lab Data Result diagrams: 11/11/23 19:51 11/11/23 19:51 Lab Results 11/11/23 11/11/23 11/11/23 Range/Units 19:51 19:51 19:51 WBC 15.8 H (3.8-10.6) k/uL RBC 3.95 L (4.30-5.90) m/uL Hgb 11.4 L (13.0-17.5) gm/dL Hct 34.8 L (39.0-53.0) % MCV 88.2 (80.0-100.0) fL MCH 28.8 (25.0-35.0) pg MCHC 32.6 (31.0-37.0) g/dL RDW 15.1 (11.5-15.5) % Plt Count 459 H (150-450) k/uL MPV 7.1 Neutrophils % 81 % Lymphocytes % 12 % Monocytes % 5 % Eosinophils % 0 % Basophils % 0 % Neutrophils # 12.8 H (1.3-7.7) k/uL Lymphocytes # 2.0 (1.0-4.8) k/uL Monocytes # 0.8 (0-1.0) k/uL Eosinophils # 0.0 (0-0.7) k/uL Basophils # 0.1 (0-0.2) k/uL Hypochromasia Slight PT 12.7 H (10.0-12.5) sec INR 1.2 H (<1.2) APTT 28.6 (22.0-30.0) sec D-Dimer 1.49 H (<0.60) mg/L FEU Sodium 130 L (137-145) mmol/L Potassium 4.9 (3.5-5.1) mmol/L Chloride 98 (98-107) mmol/L Carbon Dioxide 23 (22-30) mmol/L Anion Gap 9 mmol/L BUN 13 (9-20) mg/dL Creatinine 0.73 (0.66-1.25) mg/dL Est GFR (CKD-EPI)AfAm >90 (>60 ml/min/1.73 sqM) Est GFR (CKD-EPI)NonAf >90 (>60 ml/min/1.73 sqM) Glucose 96 (74-99) mg/dL Plasma Lactic Acid Bryan (0.7-2.0) mmol/L Calcium 8.8 (8.4-10.2) mg/dL Total Bilirubin 1.5 H (0.2-1.3) mg/dL AST 33 (17-59) U/L ALT 22 (4-49) U/L Alkaline Phosphatase 158 H (38-126) U/L Troponin I (0.000-0.034) ng/mL Total Protein 7.3 (6.3-8.2) g/dL Albumin 3.9 (3.5-5.0) g/dL Influenza Type A (PCR) (Not Detectd) Influenza Type B (PCR) (Not Detectd) RSV (PCR) (Not Detectd) SARS-CoV-2 (PCR) (Not Detectd) 11/11/23 11/11/23 11/11/23 Range/Units 19:52 19:53 20:02 WBC (3.8-10.6) k/uL RBC (4.30-5.90) m/uL Hgb (13.0-17.5) gm/dL Hct (39.0-53.0) % MCV (80.0-100.0) fL MCH (25.0-35.0) pg MCHC (31.0-37.0) g/dL RDW (11.5-15.5) % Plt Count (150-450) k/uL MPV Neutrophils % % Lymphocytes % % Monocytes % % Eosinophils % % Basophils % % Neutrophils # (1.3-7.7) k/uL Lymphocytes # (1.0-4.8) k/uL Monocytes # (0-1.0) k/uL Eosinophils # (0-0.7) k/uL Basophils # (0-0.2) k/uL Hypochromasia PT (10.0-12.5) sec INR (<1.2) APTT (22.0-30.0) sec D-Dimer (<0.60) mg/L FEU Sodium (137-145) mmol/L Potassium (3.5-5.1) mmol/L Chloride (98-107) mmol/L Carbon Dioxide (22-30) mmol/L Anion Gap mmol/L BUN (9-20) mg/dL Creatinine (0.66-1.25) mg/dL Est GFR (CKD-EPI)AfAm (>60 ml/min/1.73 sqM) Est GFR (CKD-EPI)NonAf (>60 ml/min/1.73 sqM) Glucose (74-99) mg/dL Plasma Lactic Acid Bryan 1.7 (0.7-2.0) mmol/L Calcium (8.4-10.2) mg/dL Total Bilirubin (0.2-1.3) mg/dL AST (17-59) U/L ALT (4-49) U/L Alkaline Phosphatase (38-126) U/L Troponin I <0.012 (0.000-0.034) ng/mL Total Protein (6.3-8.2) g/dL Albumin (3.5-5.0) g/dL Influenza Type A (PCR) Not Detected (Not Detectd) Influenza Type B (PCR) Not Detected (Not Detectd) RSV (PCR) Not Detected (Not Detectd) SARS-CoV-2 (PCR) Not Detected (Not Detectd) Disposition Clinical Impression: Cough, Fever Disposition: ADMITTED IP TO THIS HOSP Condition: Fair Referrals: Herbie Aguilar MD [Primary Care Provider] - 1-2 days
[2023-11-11] MEDS: ACETAMINOPHEN TAB 500 MG TAB PO STA (20:00)
[2023-11-11] MEDS: KETOROLAC 15 MG/ML 1 ML VIAL IVP STA (20:19)
[2023-11-11] MEDS: SODIUM CHLORIDE 0.9% 1,000 ML BAG IV STA (20:31)
[2023-11-11 20:36] LABS: Basophils # (A) 0.1 k/uL (0-0.2); Basophils % (A) 0 %; Eosinophils % (A) 0 %; HCT 34.8 % (39.0-53.0); HGB 11.4 gm/dL (13.0-17.5); Hypochromasia Slight; Lymphocytes % (A) 12 %; MCH 28.8 pg (25.0-35.0); MCHC 32.6 g/dL (31.0-37.0); MCV 88.2 fL (80.0-100.0); Mean Platelet Volume 7.1; Monocytes # (A) 0.8 k/uL (0-1.0); Monocytes % (A) 5 %; Neutrophils # (A) 12.8 k/uL (1.3-7.7); Neutrophils % (A) 81 %; Platelet Count 459 k/uL (150-450); RBC 3.95 m/uL (4.30-5.90); RDW 15.1 % (11.5-15.5); WBC 15.8 k/uL (3.8-10.6)
--- NOTE | 2023-11-11 20:49 | XR ---
EXAMINATION TYPE: XR chest 2V DATE OF EXAM: 11/11/2023 8:41 PM CLINICAL INDICATION:Male, 27 years old with history of r/o pna; COMPARISON: Chest radiographs from 03/09/2023 TECHNIQUE: XR chest 2V Frontal and lateral views of the chest. FINDINGS: Lungs/Pleura: There is no evidence of pleural effusion, focal consolidation, or pneumothorax. Pulmonary vascularity: Unremarkable. Heart/mediastinum: Cardiomediastinal silhouette is unremarkable. Musculoskeletal: No acute osseous pathology. IMPRESSION: Persistent interstitial opacities compared to 03/09/2023, findings likely represent scarring changes. There is some airspace opacities over the spine on lateral view possibly scarring versus pneumonia.
[2023-11-11] MEDS ORDERED: VANCOMYCIN IV PER PHARMACY 1 EACH MISC MISCELLANE PRN (21:00)
[2023-11-11 21:01] LABS: INR 1.2 (<1.2); Partial Thromboplastin Time 28.6 sec (22.0-30.0); Prothrombin Time 12.7 sec (10.0-12.5)
[2023-11-11 21:17] LABS: ALT 22 U/L (4-49); AST 33 U/L (17-59); African American GFR (CKD) >90 (>60 ml/min/1.73 sqM); Albumin 3.9 g/dL (3.5-5.0); Alkaline Phosphatase 158 U/L (38-126); Anion Gap 9 mmol/L; Blood Urea Nitrogen 13 mg/dL (9-20); Calcium 8.8 mg/dL (8.4-10.2); Carbon Dioxide 23 mmol/L (22-30); Chloride 98 mmol/L (98-107); Glucose 96 mg/dL (74-99); Non-African American GFR(CKD) >90 (>60 ml/min/1.73 sqM); Potassium 4.9 mmol/L (3.5-5.1); Sodium 130 mmol/L (137-145); Total Bilirubin 1.5 mg/dL (0.2-1.3); Total Protein 7.3 g/dL (6.3-8.2)
[2023-11-11] MEDS: CIPROFLOXACIN/DEXTROSE PMX 400 MG in DEXTROSE/WATER 1 200ML.BAG IVPB ONE (21:33)
--- NOTE | 2023-11-11 21:44 | CT ---
EXAMINATION TYPE: CT angio chest CT DLP: 241.3 mGycm, Automated exposure control for dose reduction was used. DATE OF EXAM: 11/11/2023 9:28 PM COMPARISON: None CLINICAL INDICATION:Male, 27 years old with history of hx endocarditis, r/o emboli; persistent cough, sob. hx endocarditis. TECHNIQUE/CONTRAST: CTA scan of the thorax is performed with IV Contrast, patient injected with 100ml mL of Isovue 370, M IP images are created and reviewed these are created on a separate workstation.. FINDINGS: Pulmonary Artery: There is no evidence for a filling defect within the pulmonary vasculature to sugge st acute pulmonary embolism. The pulmonary artery is of normal size. Lungs/Pleura: Scattered groundglass opacities throughout the lungs. No evidence of focal consolidatio n, pleural effusion or pneumothorax. Airway: Large airways are patent. Heart: The heart is prominent for size. Vasculature: No evidence of aortic aneurysm. Mediastinum: No gross evidence of adenopathy. Musculoskeletal: No acute osseous abnormalities Soft Tissues/lymph nodes: Unremarkable. Lower neck: No significant findings. Upper Abdomen: No significant findings. IMPRESSION: 1. No evidence of pulmonary embolism. 2. Groundglass opacities throughout the lungs, correlate for atypical pneumonia. Short-term follow-up scan after medical treatment recommended.
[2023-11-11] MEDS: SODIUM CHLORIDE 0.9% 500 ML BAG IV STA (23:25)
[2023-11-11] MEDS ORDERED: ONDANSETRON 4 MG/2 ML VIAL IVP PRN (23:31)
[2023-11-11] MEDS ORDERED: NALOXONE 0.4 MG/ML 1 ML VIAL IV PRN (23:31)
[2023-11-12] MEDS: VANCOMYCIN 1,250 MG in SODIUM CHLORIDE 0.9% 250 ML IVPB ONE (00:54)
[2023-11-12] MEDS: SODIUM CHLORIDE 0.9% 1,000 ML IV SCH (01:13)
[2023-11-12] MEDS: SODIUM CHLORIDE 0.9% 1,000 ML BAG IV STA (01:14)
[2023-11-12 02:51] LABS: Appearance,Urine Clear (Clear); Bilirubin,Urine Negative (Negative); Blood,Urine Negative (Negative); Color,Urine Light Yellow; Glucose,Urine (UA) Negative (Negative); Ketones,Urine Negative (Negative); Leukocyte Esterase,Urine Negative (Negative); Nitrite,Urine Negative (Negative); Protein,Urine Negative (Negative); Specific Gravity,Urine 1.031 (1.001-1.035)
[2023-11-12] MEDS: VANCOMYCIN 1,000 MG in SODIUM CHLORIDE 0.9% 250 ML IVPB SCH (10:01)
--- NOTE | 2023-11-12 10:28 | P.CRDCN ---
History of Present Illness History of present illness: HISTORY OF PRESENT ILLNESS: This is a 27-year-old male with a past medical history significant for IV drug abuse and endocarditis. 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 We have bee n asked to see the patient in consultation for cough, fever, and history of endocarditis. Patient examined at the bedside. Patient states over the past couple days he has been having a cough with sputum production. He also reports having a fever. He reports mild chest pain with coughing. He states yesterday he used IV drugs and also used opiates. He also reports nicotine dependence. DIAGNOSTICS: - EKG reveals sinus tachycardia with a heart rate of 109. No signs of acute ischemia. - Chest xray persistent interstitial opacities, findings likely represent scarring changes. There are some airspace opacities over the spine on lateral view possibly scarring versus pneumonia. - Chest CTA: Negative for pulmonary embolism. Groundglass opacities throughout the lungs. Correlate for atypical pneumonia. - Laboratory data: WBC 15.8. Hemoglobin 11.4. Platelet count 459. D-dimer 1.49. Sodium 130. Potassium 4.9. BUN 13. Creatinine 0.73. Troponin negative x 1. - Patient underwent REY in February 2023 revealing infective endocarditis involving the tricuspid valve greater than 1.5 cm with small to moderate pericardial effusion REVIEW OF SYSTEMS: At the time of my exam: CONSTITUTIONAL: Denies fever or chills. HEENT: Denies blurred vision, vision changes, or eye pain. Denies hemoptysis CARDIOVASCULAR: Denies chest pain. Denies orthopnea. Denies PND. Denies palpitations RESPIRATORY: Denies shortness of breath. GASTROINTESTINAL: Denies abdominal pain. Denies nausea or vomiting. HEMATOLOGIC: Denies bleeding disorders. GENITOURINARY: Denies any blood in urine. SKIN: Denies pruitis. Denies rash. PHYSICAL EXAM: VITAL SIGNS: Reviewed. GENERAL: Well-developed in no acute distress. HEENT: Head is normocephalic. Pupils are equal, round. Sclerae anicteric. Mucous membranes of the mouth are moist. Neck supple. No JVD or thyromegaly LUNGS: Respirations even and unlabored. Lungs essentially clear to auscultation bilaterally. HEART: Regular rate and rhythm. S1 and S2 heard. ABDOMEN: Soft. Nondistended. Nontender. EXTREMITIES: Normal range of motion. No clubbing or cyanosis. Peripheral pulses intact. No lower extremity edema NEUROLOGIC: Awake and alert. Oriented x 3. ASSESSMENT: Sepsis, fever with leukocytosis, suspect continued endocarditis History of IV drug abuse, last used yesterday per patient History of endocarditis of tricuspid valve Nicotine dependence, patient vapes PLAN: Obtain 2D echo to assess cardiac structure and function Continue IV antibiotics. Dr. Espinoza consulted. Blood cultures ordered. Await results. Smoking cessation recommended Abstinence from IV drug abuse encouraged Further recommendations pending patient course Nurse practitioner note has been reviewed by physician. Signing provider agrees with the documented findings, assessment, and plan of care documented by TUBE HANDLER as a scribe. Past Medical History Past Medical History: Liver Disease Additional Past Medical History / Comment(s): Hep C History of Any Multi-Drug Resistant Organisms: MRSA Date of last positivie culture/infection: 03/07/23 MDRO Source:: Pleural Fluid Past Surgical History: Orthopedic Surgery Additional Past Surgical History / Comment(s): I & D left ankle 02/16/23 Past Anesthesia/Blood Transfusion Reactions: No Reported Reaction Past Psychological History: Depression Smoking Status: Former smoker, Vaper Past Alcohol Use History: None Reported Past Drug Use History: Heroin Additional Drug Use History / Comment(s): Heroin and fentanyl use - Past Family History Mother History Unknown: Yes Additional Family Medical History / Comment(s): Mother from overdose, age unknown. Father History Unknown: Yes Additional Family Medical History / Comment(s): Patient never met his father. Medications and Allergies Home Medications Medication Instructions Recorded Confirmed Type No Known Home Medications 11/12/23 11/12/23 History Allergies Allergy/AdvReac Type Severity Reaction Status Date / Time cephalexin [From Keflex] Allergy Rash/Hives Verified 11/12/23 09:20 sulfamethoxazole Allergy Rash/Hives, Verified 11/12/23 09:20 [From Bactrim] Swelling trimethoprim [From Bactrim] Allergy Rash/Hives, Verified 11/12/23 09:20 Swelling Physical Exam Vitals: Vital Signs Temp Pulse Pulse Resp BP BP Pulse Ox 11/12/23 05:35 65 93/63 11/12/23 05:11 97.5 F L 68 85/57 11/12/23 04:30 99/63 11/12/23 03:02 97.4 F L 84 16 96/65 100 11/12/23 01:52 80 87/53 11/12/23 01:22 71 80/47 11/12/23 01:10 75 82/49 11/12/23 00:55 97.6 F 79 86/56 11/12/23 00:34 76 85/51 11/12/23 00:22 94/60 11/12/23 00:03 97.9 F 79 17 93/56 100 11/11/23 21:17 99.8 F H 105 H 16 107/79 100 11/11/23 19:29 103.1 F H 83 24 112/51 94 L Intake and Output 11/11/23 11/12/23 11/12/23 22:59 06:59 14:59 Output Total 800 Balance -800 Output: Urine 800 Other: Voiding Method Urinal # Voids 1 Weight 57.153 kg 57.153 kg Results 11/11/23 19:51 11/11/23 19:51 Cardiac Enzymes 11/11/23 11/11/23 Range/Units 19:51 19:53 AST 33 (17-59) U/L Troponin I <0.012 (0.000-0.034) ng/mL Coagulation 11/11/23 Range/Units 19:51 PT 12.7 H (10.0-12.5) sec APTT 28.6 (22.0-30.0) sec CBC 11/11/23 Range/Units 19:51 WBC 15.8 H (3.8-10.6) k/uL RBC 3.95 L (4.30-5.90) m/uL Hgb 11.4 L (13.0-17.5) gm/dL Hct 34.8 L (39.0-53.0) % Plt Count 459 H (150-450) k/uL Comprehensive Metabolic Panel 11/11/23 Range/Units 19:51 Sodium 130 L (137-145) mmol/L Potassium 4.9 (3.5-5.1) mmol/L Chloride 98 (98-107) mmol/L Carbon Dioxide 23 (22-30) mmol/L BUN 13 (9-20) mg/dL Creatinine 0.73 (0.66-1.25) mg/dL Glucose 96 (74-99) mg/dL Calcium 8.8 (8.4-10.2) mg/dL AST 33 (17-59) U/L ALT 22 (4-49) U/L Alkaline Phosphatase 158 H (38-126) U/L Total Protein 7.3 (6.3-8.2) g/dL Albumin 3.9 (3.5-5.0) g/dL Current Medications Generic Name Dose Route Start Last Admin Trade Name Freq PRN Reason Stop Dose Admin Acetaminophen 650 mg 11/11/23 23:31 Acetaminophen Tab 325 Mg Tab PO Q6HR PRN Mild Pain or Fever > 100.5 Sodium Chloride 1,000 mls @ 75 mls/hr 11/11/23 23:45 11/12/23 01:13 Saline 0.9% IV 75 mls/hr .[id number] NAVDEEP Administration Vancomycin HCl 1,000 mg/ 250 mls @ 125 mls/hr 11/12/23 09:00 Sodium Chloride IVPB Q8H NAVDEEP Ketorolac Tromethamine 15 mg 11/11/23 23:31 Ketorolac 15 Mg/Ml 1 Ml Vial IVP 11/14/23 23:32 Q6HR PRN Moderate Pain (Scale 4 to 6) Miscellaneous Information 1 each 11/11/23 21:00 Vancomycin Iv Per Pharmacy 1 Each Misc MISCELLANE DIRECTED PRN Per Protocol Protocol Naloxone HCl 0.2 mg 11/11/23 23:31 Naloxone 0.4 Mg/Ml 1 Ml Vial IV Q2M PRN Opioid Reversal Ondansetron HCl 4 mg 11/11/23 23:31 Ondansetron 4 Mg/2 Ml Vial IVP Q8HR PRN Nausea And Vomiting Intake and Output 11/11/23 11/12/23 11/12/23 22:59 06:59 14:59 Output Total 800 Balance -800 Output: Urine 800 Other: Voiding Method Urinal # Voids 1 Weight 57.153 kg 57.153 kg 11/11/23 19:51 11/11/23 19:51
--- NOTE | 2023-11-12 11:38 | CA ---
Transthoracic Echo Report Name: Ugo Wilson Age: 27 Gender: M : 1995 Exam Date: 11/12/2023 09:16 Exam Location: [facility] Ht (in): 66 Wt (lb): 126 Ordering Physician: Lakhwinder Mcallister Attending/Referring Phys: Farm Adviser Gladys Joya RDCS Procedure CPT: Indications: Hx Endocarditis Cardiac Hx: Technical Quality: Good Contrast 1: Total Dose (mL): Contrast 2: Total Dose (mL): MEASUREMENTS (Male / Female) Normal Values 2D ECHO LV Diastolic Diameter PLAX 4.4 cm 4.2 - 5.9 / 3.9 - 5.3 cm LV Systolic Diameter PLAX 3.4 cm IVS Diastolic Thickness 1.0 cm 0.6 - 1.0 / 0.6 - 0.9 cm LVPW Diastolic Thickness 0.9 cm 0.6 - 1.0 / 0.6 - 0.9 cm LV Relative Wall Thickness 0.4 RV Internal Dim ED PLAX 3.8 cm LVOT Diameter 2.5 cm LV Diastolic Volume MOD BP 155.5 cm??? 67 - 155 / 56 - 104 cm??? LV Systolic Volume MOD BP 83.3 cm??? 22 - 58 / 19 - 49 cm??? LV Ejection Fraction MOD BP 46.4 % >= 55 % LV Cardiac Index MOD BP 3502.3 cm???/min???m??? LV Diastolic Volume MOD 4C 142.3 cm??? LV Systolic Volume MOD 4C 76.7 cm??? LV Ejection Fraction MOD 4C 46.1 % LV Cardiac Index MOD 4C 3179.3 cm???/min???m??? LV Diastolic Length 4C 10.3 cm LV Systolic Length 4C 8.8 cm LV Diastolic Volume MOD 2C 170.0 cm??? LV Systolic Volume MOD 2C 88.5 cm??? LV Ejection Fraction MOD 2C 47.9 % LV Cardiac Index MOD 2C 3954.3 cm???/min???m??? LV Diastolic Length 2C 10.3 cm LV Systolic Length 2C 9.0 cm LA Volume 37.9 cm??? 18 - 58 / 22 - 52 cm??? LA Volume Index 23.3 cm???/m??? 16 - 28 cm???/m??? Ascending Aorta Diameter 2.5 cm M-MODE LV Diastolic Diameter MM 4.2 cm 4.2 - 5.9 / 3.9 - 5.3 cm LV Systolic Diameter MM 3.4 cm LV Cardiac Index MM Teich 1489.6 cm???/min???m??? IVS Diastolic Thickness MM 0.9 cm 0.6 - 1.0 / 0.6 - 0.9 cm LVPW Diastolic Thickness MM 1.0 cm 0.6 - 1.0 / 0.6 - 0.9 cm LV Relative Wall Thickness MM 0.4 0.24 - 0.42 / 0.22 - 0.42 LV Mass Index MM 75.4 g/m??? 49 - 115 / 43 - 95 g/m??? DOPPLER AV Peak Velocity 87.9 cm/s AV Peak Gradient 3.1 mmHg AV Mean Velocity 64.8 cm/s AV Mean Gradient 1.8 mmHg AV Velocity Time Integral 16.3 cm LVOT Peak Velocity 80.3 cm/s LVOT Peak Gradient 2.6 mmHg LVOT Velocity Time Integral 14.1 cm LVOT Stroke Volume 68.9 cm??? LVOT Stroke Volume Index 41.9 ml/m??? LVOT Cardiac Index 3345.2 cm???/min???m??? AV Area Cont Eq vti 4.2 cm??? AV Area Cont Eq pk 4.5 cm??? MV Area PHT 4.0 cm??? Mitral E Point Velocity 66.1 cm/s Mitral A Point Velocity 30.2 cm/s Mitral E to A Ratio 2.2 MV Deceleration Time 187.8 ms TR Peak Velocity 206.9 cm/s TR Peak Gradient 17.1 mmHg Right Atrial Pressure 20.0 mmHg Pulmonary Artery Systolic Pressu 37.1 mmHg Right Ventricular Systolic Press 37.1 mmHg PV Peak Velocity 59.7 cm/s PV Peak Gradient 1.4 mmHg PI Peak Gradient 13.5 mmHg Pulmonary Artery Diastolic Press 33.5 mmHg FINDINGS Left Ventricle Left ventricular ejection fraction is estimated at 45-50 %. Moderately decreased fractional shortening. Normal LV cavity size. Mildly decreased left ventricular ejection fraction with global hypokinesis. Right Ventricle Severe right ventricular dilatation with mildly reduced function. Unable to estimate the right ventricular systolic pressure. Right Atrium Severe right atrial dilatation. Left Atrium Normal left atrial size. Mitral Valve Structurally normal mitral valve. No evidence for mitral valve prolapse. No mitral stenosis. Trace mitral regurgitation. Aortic Valve Trileaflet aortic valve. No aortic stenosis. Trace aortic regurgitation. Tricuspid Valve Annular dilatation of the tricuspid valve. Tricuspid valve non-coaptation. Possible flail leaflet vs vegetation. Torrential tricuspid valve regurgitation. Pulmonic Valve Structurally normal pulmonic valve. No pulmonic stenosis. Moderate pulmonic regurgitation. Pericardium No pericardial effusion. Aorta Normal size aortic root and proximal ascending aorta. CONCLUSIONS LVEF 45-50%. Normal LV cavity size. Mildly reduced global LV systolic function with normal RWMA No clear evidence of vegetation on Mitral and aortic valve with no significant valve dysfunction. Severe RA and RV dilatation. RV volume overload Torrential Tricuspid regurgitation. Non coapting tricuspid leaflets. Appears to have healed endocarditis on tricuspid leaflets with mild prolapse Systolic flow reversqal in hepatic vein Signs of RV failure Previewed by: Dr Kaz Ramirez (Electronically Signed) Final Date: 12 November 2023 11:38
[2023-11-12] MEDS: LEVOFLOXACIN 750MG-D5W PMX 750 MG in DEXTROSE/WATER 1 150ML.BAG IVPB SCH (13:45)
--- NOTE | 2023-11-12 16:16 | P.CNPUL ---
History of Present Illness Consult date: 11/12/23 Requesting physician: Anthony Ahuja Reason for consult: dyspnea, cough, other Chief complaint: Endocarditis. History of present illness: Pulmonary consult dated November 12, 2023. 27-year-old male who presents to the emergency department, on November 10, with a history of cough, and upper respiratory tract infection. The patient has a history of bacterial endocarditis, involving the tricuspid valve, secondary to IV drug use, for which she was on daptomycin for 6 weeks. The patient apparently was previously at [facility], although, I believe he was at this hospital prior. The patient reports a dry cough, for 3 days. In addition, he apparently had a fever, and some mild shortness of breath. He apparently was not coughing up any phlegm. Currently, the patient is on vanco mycin and Levaquin, and currently is not on any supplemental oxygen, at this time. The patient appears to be resting comfortably. He is getting saline at 75 cc an hour. The patient apparently has a history of hepatitis C, methicillin-resistant Staph aureus endocarditis, and chronic liver disease. He also has a history of depression, and, he apparently did or currently smokes, and vapes. He has used IV heroin in the past. Current laboratory data includes a white count 15.8, hemoglobin 1.4, hematocrit 34.8, and a platelet count of 459,000. PT 12.7, INR 1.2, and D-dimer 1.49. Sodium 130, potassium 4.9, chlorides 98, CO2 23, BUN 13, creatinine 0.73. Bilirubin is 1.5. Procalcitonin level is 0.61. Urine was negative. He tested negative for influenza AMB, RSV, and coronavirus infection. Chest x-ray shows some persistent interstitial opacities, consistent with scarring. This was compared to an x-ray that was done in February of last year. CT angiogram was negative for pulmonary embolism. There was groundglass opacities, consistent with possible atypical pneumonia. Echocardiogram showed an left ventricular ejection fraction of 45 to 50%. There is no clear evidence of vegetation on mitral and aortic valves, with no significant valve dysfunction. Tricuspid valve appears to show healed endocarditis. Review of Systems REVIEW OF SYSTEMS: CONSTITUTIONAL: Fever. NEUROLOGIC: [ Negative.] HEENT: [ Negative.] CARDIAC: [Negative.] PULMONARY: Cough, and shortness of breath. GI: [Negative.] : [Negative.] RHEUMATOLOGIC: [ Negative.] IMMUNOLOGIC: [ Negative.] ENDOCRINE: [Negative. ] DERMATOLOGIC: [Negative.] Past Medical History Past Medical History: Liver Disease Additional Past Medical History / Comment(s): Hep C History of Any Multi-Drug Resistant Organisms: MRSA Date of last positivie culture/infection: 03/07/23 MDRO Source:: Pleural Fluid Past Surgical History: Orthopedic Surgery Additional Past Surgical History / Comment(s): I & D left ankle 02/16/23 Past Anesthesia/Blood Transfusion Reactions: No Reported Reaction Past Psychological History: Depression Smoking Status: Former smoker, Vaper Past Alcohol Use History: None Reported Past Drug Use History: Heroin Additional Drug Use History / Comment(s): Heroin and fentanyl use - Past Family History Mother History Unknown: Yes Additional Family Medical History / Comment(s): Mother from overdose, age unknown. Father History Unknown: Yes Additional Family Medical History / Comment(s): Patient never met his father. Medications and Allergies Home Medications Medication Instructions Recorded Confirmed Type No Known Home Medications 11/12/23 11/12/23 History Allergies Allergy/AdvReac Type Severity Reaction Status Date / Time cephalexin [From Keflex] Allergy Rash/Hives Verified 11/12/23 09:20 sulfamethoxazole Allergy Rash/Hives, Verified 11/12/23 09:20 [From Bactrim] Swelling trimethoprim [From Bactrim] Allergy Rash/Hives, Verified 11/12/23 09:20 Swelling Physical Exam Osteopathic Statement: *. No significant issues noted on an osteopathic structural exam other than those noted in the History and Physical/Consult. Vitals: Vital Signs Temp Pulse Pulse Resp BP BP Pulse Ox 11/12/23 14:00 84 16 11/12/23 12:00 98.3 F 84 16 100/65 98 11/12/23 08:00 97.7 F 70 16 95/59 99 11/12/23 05:35 65 93/63 11/12/23 05:11 97.5 F L 68 85/57 11/12/23 04:30 99/63 11/12/23 03:02 97.4 F L 84 16 96/65 100 11/12/23 01:52 80 87/53 11/12/23 01:22 71 80/47 11/12/23 01:10 75 82/49 11/12/23 00:55 97.6 F 79 86/56 11/12/23 00:34 76 85/51 11/12/23 00:22 94/60 11/12/23 00:03 97.9 F 79 17 93/56 100 11/11/23 21:17 99.8 F H 105 H 16 107/79 100 11/11/23 19:29 103.1 F H 83 24 112/51 94 L Intake and Output 11/12/23 11/12/23 11/12/23 06:59 14:59 22:59 Intake Total 712 Output Total 800 500 Balance -800 212 Intake: Oral 712 Output: Urine 800 500 Other: Voiding Method Urinal Urinal # Voids 1 Weight 57.153 kg No acute distress, oriented 3. Currently on room air. No respiratory difficulty. HEENT examination is grossly unremarkable. Mucous membranes are moist. No oral lesions. Neck supple. Full range of motion. No adenopathy thyromegaly or neck vein distention. Cardiovascular examination reveals regular rhythm rate. S1-S2 normal. No S3 or S4. No discernible murmur noted. Heart rate 84 bpm. Hyperdynamic precordium. Lungs reveal clear breath sounds. Breath sounds are equal bilaterally. No adventitious lung sounds including wheezes rhonchi or crackles. Room air saturation 98%. Abdomen soft bowel sounds are heard. No masses or tenderness. Extremities are intact. No cyanosis clubbing or edema. Skin is without rash or lesion. Neurologic examination is brief but nonfocal. Results - Laboratory Findings CBC and BMP: 11/11/23 19:51 11/11/23 19:51 PT/INR, D-dimer PT 12.7 sec (10.0-12.5) H 11/11/23 19:51 INR 1.2 (<1.2) H 11/11/23 19:51 D-Dimer 1.49 mg/L FEU (<0.60) H 11/11/23 19:51 Abnormal lab findings: Abnormal Labs 11/11/23 11/11/23 11/11/23 19:51 19:51 19:51 WBC 15.8 H RBC 3.95 L Hgb 11.4 L Hct 34.8 L Plt Count 459 H Neutrophils # 12.8 H PT 12.7 H INR 1.2 H D-Dimer 1.49 H Sodium 130 L Total Bilirubin 1.5 H Alkaline Phosphatase 158 H Procalcitonin 11/11/23 19:52 WBC RBC Hgb Hct Plt Count Neutrophils # PT INR D-Dimer Sodium Total Bilirubin Alkaline Phosphatase Procalcitonin 0.61 H - Diagnostic Findings Chest x-ray: image reviewed CT scan - chest: image reviewed Assessment and Plan Assessment: Possible viral upper respiratory tract infection, versus atypical pneumonia. History of tricuspid valve endocarditis, secondary to MRSA, S/P 6 weeks of daptomycin. History of hepatitis C. History of IV drug use. Previous history of tobacco use. History of depression. Prior history of left ankle cellulitis. Plan: Plan updated November 12, 2023. The patient was previously seen by me in consultation, in February 2023. He was initially at [facility], and transferred over here, as cardiology wanted him over here at that time. He initially presented there with ankle cellulitis, and left AGAINST MEDICAL ADVICE. 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 The patient recently completed 6 weeks of daptomycin. His current echocardiogram shows healed tricuspid valve endocarditis. His chest x-ray and CT scan are reviewed. He tested negative for influenza A, influenza B, RSV, and coronavirus. We will continue to follow. Prognosis is guarded. Time with Patient: Greater than 30
[2023-11-12 21:58] LABS: Urine Alcohol Negative (Negative); Urine Barbiturate Negative (Negative); Urine Cocaine Negative (Negative); Urine Methadone Negative (Negative); Urine Opiates Negative (Negative); Urine Phencyclidine Negative (Negative)
--- NOTE | 2023-11-13 07:29 | P.CONS ---
History of Present Illness - Reason for Consult Consult date: 11/12/23 Cough and history of endocarditis Requesting physician: Lakhwinder Mcallister - Chief Complaint Cough and shortness of breath x few days - History of Present Illness Patient is a 27-year-old male with a past medical history significant for IV drug use and history of tricuspid valve endocarditis with MRSA bacteremia for which the patient was transferred to [facility] but the patient did have angio vac procedure done and the patient mention he completed a 6-week course of IV antibiotic therapy patient continues IV drugs and last IV drug use about 3 days before presentation to the hospital patient presented to [facility] ER last night concerning for cough that has been going on for last 3 days describing it to be mostly dry moderate intensity with associated shortness of breath denies having any nausea no vomiting no abdominal pain or any diarrhea wi th the symptoms the patient has been evaluated on presentation to the hospital he did have a temperature of 103.1 F patient was not tachycardic hypotensive or hypoxic and no need for supplemental oxygen patient did have white count of 15.8 with a left shift creatinine 0.73 urine has been negative urine drug screen was positive for amphetamines cannabis influenza RSV COVID testing was negative pat ient did have a chest x-ray followed by CT angiogram of the chest did not show PE however there was evidence of groundglass opacity throughout the lungs correlate for atypical pneumonia patient was started on vancomycin admit to the hospital infectious disease was consulted for further management of antibiotic therapy Review of Systems Positive point and negatives has been mentioned in the HPI, complete review of systems was performed and all other systems are negative Past Medical History Past Medical History: Liver Disease Additional Past Medical History / Comment(s): Hep C History of Any Multi-Drug Resistant Organisms: MRSA Year Discovered:: 03/07/23 MDRO Source:: Pleural Fluid Past Surgical History: Orthopedic Surgery Additional Past Surgical History / Comment(s): I & D left ankle 02/16/23 Past Anesthesia/Blood Transfusion Reactions: No Reported Reaction Past Psychological History: Depression Smoking Status: Former smoker, Vaper Past Alcohol Use History: None Reported Past Drug Use History: Heroin Additional Drug Use History / Comment(s): Heroin and fentanyl use - Past Family History Mother History Unknown: Yes Additional Family Medical History / Comment(s): Mother from overdose, age unknown. Father History Unknown: Yes Additional Family Medical History / Comment(s): Patient never met his father. Medications and Allergies Home Medications Medication Instructions Recorded Confirmed Type No Known Home Medications 11/12/23 11/12/23 History Allergies Allergy/AdvReac Type Severity Reaction Status Date / Time cephalexin [From Keflex] Allergy Rash/Hives Verified 11/12/23 09:20 sulfamethoxazole Allergy Rash/Hives, Verified 11/12/23 09:20 [From Bactrim] Swelling trimethoprim [From Bactrim] Allergy Rash/Hives, Verified 11/12/23 09:20 Swelling Physical Exam Vitals: Vital Signs Temp Pulse Pulse Resp BP BP Pulse Ox 11/12/23 08:00 97.7 F 70 16 95/59 99 11/12/23 05:35 65 93/63 11/12/23 05:11 97.5 F L 68 85/57 11/12/23 04:30 99/63 11/12/23 03:02 97.4 F L 84 16 96/65 100 11/12/23 01:52 80 87/53 11/12/23 01:22 71 80/47 11/12/23 01:10 75 82/49 11/12/23 00:55 97.6 F 79 86/56 11/12/23 00:34 76 85/51 11/12/23 00:22 94/60 11/12/23 00:03 97.9 F 79 17 93/56 100 11/11/23 21:17 99.8 F H 105 H 16 107/79 100 11/11/23 19:29 103.1 F H 83 24 112/51 94 L Intake and Output 11/11/23 11/12/23 11/12/23 22:59 06:59 14:59 Intake Total 356 Output Total 800 Balance -800 356 Intake: Oral 356 Output: Urine 800 Other: Voiding Method Urinal Urinal # Voids 1 Weight 57.153 kg 57.153 kg GENERAL DESCRIPTION: Middle-aged male lying in bed, no distress. No tachypnea or accessory muscle of respiration use. HEENT: Shows Pallor , no scleral icterus. Oral mucous membrane is dry. No pharyngeal erythema or thrush NECK: Trachea central, no thyromegaly. LUNGS: Unlabored breathing. Decreased evidence of breath sound no wheeze HEART: S1, S2, regular rate and rhythm. ABDOMEN: Soft, no tenderness , guarding or rigidity, no organomegaly EXTREMITIES: No edema of feet. SKIN: No rash, no masses palpable. NEUROLOGICAL: The patient is awake, alert, oriented x3, mood and affect normal. Results CBC & Chem 7: 11/13/23 08:22 11/14/23 09:11 Labs: Abnormal Lab Results - Last 24 Hours (Table) 11/11/23 11/11/23 11/11/23 Range/Units 19:51 19:51 19:51 WBC 15.8 H (3.8-10.6) k/uL RBC 3.95 L (4.30-5.90) m/uL Hgb 11.4 L (13.0-17.5) gm/dL Hct 34.8 L (39.0-53.0) % Plt Count 459 H (150-450) k/uL Neutrophils # 12.8 H (1.3-7.7) k/uL PT 12.7 H (10.0-12.5) sec INR 1.2 H (<1.2) D-Dimer 1.49 H (<0.60) mg/L FEU Sodium 130 L (137-145) mmol/L Total Bilirubin 1.5 H (0.2-1.3) mg/dL Alkaline Phosphatase 158 H (38-126) U/L Procalcitonin (0.02-0.09) ng/mL 11/11/23 Range/Units 19:52 WBC (3.8-10.6) k/uL RBC (4.30-5.90) m/uL Hgb (13.0-17.5) gm/dL Hct (39.0-53.0) % Plt Count (150-450) k/uL Neutrophils # (1.3-7.7) k/uL PT (10.0-12.5) sec INR (<1.2) D-Dimer (<0.60) mg/L FEU Sodium (137-145) mmol/L Total Bilirubin (0.2-1.3) mg/dL Alkaline Phosphatase (38-126) U/L Procalcitonin 0.61 H (0.02-0.09) ng/mL Assessment and Plan (1) Pneumonia Status: Acute Code(s): J18.9 - PNEUMONIA, UNSPECIFIED ORGANISM SNOMED Code(s): 171007491 (2) Sepsis Status: Acute Code(s): A41.9 - SEPSIS, UNSPECIFIED ORGANISM SNOMED Code(s): 55165083 Plan: 1patient with a complicated history of IV drug use patient continues to use and history of tricuspid valve endocarditis completed his IV antibiotic therapy now presented to the hospital with sepsis and the patient did have fever elevated white count predominantly respiratory symptoms with evidence of infiltrate on the CT concerning for possible atypical pneumonia patient did have a negative COVID and RSV as well as influenza. 2patient with multiple antibiotic ALLERGIES that would limit the number of antibiotic safe to use. 3blood culture has been obtained tried repeated sputum culture urine for Legionella antigen. 4continue with the vancomycin we will add Levaquin while waiting for the workup to be completed. We will follow on clinical condition and cultures to further adjust medication if needed Thank you for this consultation we will follow the patient along with you Dictation was produced using [employer] dictation software. please excuse any grammatical, word or spelling errors. Time with Patient: Greater than 30
[2023-11-13] MEDS: VANCOMYCIN TROUGH DUE 1 EACH MISC MISCELLANE ONE (08:54)
[2023-11-13 09:06] LABS: Basophils % (A) 0 %; Eosinophils # (A) 0.1 k/uL (0-0.7); Eosinophils % (A) 1 %; HGB 10.4 gm/dL (13.0-17.5); Hypochromasia Slight; Lymphocytes # (A) 2.4 k/uL (1.0-4.8); Lymphocytes % (A) 27 %; MCH 27.7 pg (25.0-35.0); MCHC 30.5 g/dL (31.0-37.0); MCV 90.9 fL (80.0-100.0); Monocytes # (A) 0.5 k/uL (0-1.0); Monocytes % (A) 5 %; Neutrophils # (A) 5.8 k/uL (1.3-7.7); Neutrophils % (A) 65 %; Platelet Count 418 k/uL (150-450); RBC 3.74 m/uL (4.30-5.90); RDW 15.1 % (11.5-15.5)
[2023-11-13 09:40] LABS: African American GFR (CKD) >90 (>60 ml/min/1.73 sqM); Anion Gap 7 mmol/L; Blood Urea Nitrogen 8 mg/dL (9-20); Calcium 8.7 mg/dL (8.4-10.2); Carbon Dioxide 20 mmol/L (22-30); Chloride 109 mmol/L (98-107); Glucose 112 mg/dL (74-99); Non-African American GFR(CKD) >90 (>60 ml/min/1.73 sqM); Potassium 4.3 mmol/L (3.5-5.1); Sodium 136 mmol/L (137-145)
--- NOTE | 2023-11-13 11:23 | P.PN ---
Subjective HISTORY OF PRESENT ILLNESS: This is a 27-year-old male with a past medical history significant for IV drug abuse and endocarditis. 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 We have been asked to see the patient in consultation for cough, fever, and history of endocarditis. Patient examined at the bedside. Patient states over the past couple days he has been having a cough with sputum production. He also reports having a fever. He reports mild chest pain with coughing. He states yesterday he used IV drugs and also used opiates. He also reports nicotine dependence. DIAGNOSTICS: - EKG reveals sinus tachycardia with a heart rate of 109. No signs of acute ischemia. - Chest xray persistent interstitial opacities, findings likely represent scarring changes. There are some airspace opacities over the spine on lateral view possibly scarring versus pneumonia. - Chest CTA: Negative for pulmonary embolism. Groundglass opacities throughout the lungs. Correlate for atypical pneumonia. - Laboratory data: WBC 15.8. Hemoglobin 11.4. Platelet count 459. D-dimer 1.49. Sodium 130. Potassium 4.9. BUN 13. Creatinine 0.73. Troponin negative x 1. - Patient underwent REY in February 2023 revealing infective endocarditis involving the tricuspid valve greater than 1.5 cm with small to moderate pericardial effusion 11/13/2023 Patient examined this morning at the bedside. Patient currently denies chest pain or pressure. He denies shortness of breath. Patient's blood cultures are positive for gram-positive cocci in chains. He remains on IV antibiotics. Infectious diseases following. Echocardiogram completed revealing ejection fraction 45 to 50%, severe right ventricular dilatation with mildly reduced function, trace aortic regurgitation, possible flail leaflet versus vegetation on tricuspid valve with torrential tricuspid valve regurgitation PHYSICAL EXAM: VITAL SIGNS: Reviewed. GENERAL: Well-developed in no acute distress. HEENT: Head is normocephalic. Pupils are equal, round. Sclerae anicteric. Mucous membranes of the mouth are moist. Neck supple. No JVD or thyromegaly LUNGS: Respirations even and unlabored. Lungs essentially clear to auscultation bilaterally. HEART: Regular rate and rhythm. S1 and S2 heard. ABDOMEN: Soft. Nondistended. Nontender. EXTREMITIES: Normal range of motion. No clubbing or cyanosis. Peripheral pulses intact. No lower extremity edema NEUROLOGIC: Awake and alert. Oriented x 3. ASSESSMENT: Sepsis, fever with leukocytosis Possible upper respiratory infection versus atypical pneumonia, pulmonary following [place] [facility] [place] patient Bacteremia History of IV drug abuse, last used yesterday per patient History of endocarditis of tricuspid valve with angio vac procedure, February 2023 at [facility] Nicotine dependence, patient vapes Marijuana use PLAN: [place] [facility] [place] If patient did not have a recent REY performed, will plan for REY to further evaluate tricuspid valve and possible vegetation Continue antibiotics. Infectious diseases following. Smoking cessation recommended Abstinence from IV drug abuse encouraged Further recommendations pending patient course Nurse practitioner note has been reviewed by physician. Signing provider agrees with the documented findings, assessment, and plan of care documented by EXECUTIVE STEWARD as a scribe. Objective - Vital Signs Vital signs: Vital Signs Temp 98.9 F 11/13/23 08:00 Pulse 98 11/13/23 08:00 Resp 16 11/13/23 08:00 BP 102/66 11/13/23 08:00 Pulse Ox 98 11/13/23 08:00 FiO2 Intake & Output 11/12/23 11/13/23 11/13/23 18:59 06:59 18:59 Intake Total 1068 120 Output Total 500 Balance 568 120 Intake: Oral 1068 120 Output: Urine 500 Other: Voiding Method Urinal Urinal Urinal # Voids 3 3 0 # Bowel Movements 0 - Labs CBC & Chem 7: 11/13/23 08:22 11/13/23 08:22 Labs: Abnormal Lab Results - Last 24 Hours (Table) 11/12/23 11/12/23 11/13/23 Range/Units 12:35 12:52 08:22 RBC (4.30-5.90) m/uL Hgb (13.0-17.5) gm/dL Hct (39.0-53.0) % MCHC (31.0-37.0) g/dL Sodium 136 L (137-145) mmol/L Chloride 109 H (98-107) mmol/L Carbon Dioxide 20 L (22-30) mmol/L BUN 8 L (9-20) mg/dL Creatinine 0.47 L (0.66-1.25) mg/dL Glucose 112 H (74-99) mg/dL Procalcitonin 3.83 H (0.02-0.09) ng/mL Ur Amphetamine Screen Positive A (Negative) U Cannabinoids Screen Positive A (Negative) 11/13/23 Range/Units 08:22 RBC 3.74 L (4.30-5.90) m/uL Hgb 10.4 L (13.0-17.5) gm/dL Hct 34.0 L (39.0-53.0) % MCHC 30.5 L (31.0-37.0) g/dL Sodium (137-145) mmol/L Chloride (98-107) mmol/L Carbon Dioxide (22-30) mmol/L BUN (9-20) mg/dL Creatinine (0.66-1.25) mg/dL Glucose (74-99) mg/dL Procalcitonin (0.02-0.09) ng/mL Ur Amphetamine Screen (Negative) U Cannabinoids Screen (Negative) Microbiology - Last 24 Hours (Table) 11/11/23 20:05 Blood Culture Gram Stain - Preliminary Blood Blood Culture - Preliminary Molecular ID 11/11/23 20:20 Blood Culture Gram Stain - Preliminary Blood
--- NOTE | 2023-11-13 11:42 | P.PN ---
Subjective Progress Note Date: 11/13/23 Principal diagnosis: Endocarditis. Pulmonary consult dated November 12, 2023. 27-year-old male who presents to the emergency department, on November 10, with a history of cough, and upper respiratory tract infection. The patient has a history of bacterial endocarditis, involving the tricuspid valve, secondary to IV drug use, for which she was on daptomycin for 6 weeks. The patient apparently was previously at [facility], although, I believe he was at this hospital prior. The patient reports a dry cough, for 3 days. In addition, he apparently had a fever, and some mild shortness of breath. He apparently was not coughing up any phlegm. Currently, the patient is on vancomycin and Levaquin, and currently is not on any supplemental oxygen, at this time. The patient appears to be resting comfortably. He is getting saline at 75 cc an hour. The patient apparently has a history of hepatitis C, methicillin-resistant Staph aureus endocarditis, and chronic liver disease. He also has a history of depression, and, he apparently did or currently smokes, and vapes. He has used IV heroin in the past. Current laboratory data includes a white count 15.8, hemoglobin 1.4, hematocrit 34.8, and a platelet count of 459,000. PT 12.7, INR 1.2, and D-dimer 1.49. Sodium 130, potassium 4.9, chlorides 98, CO2 23, BUN 13, creatinine 0.73. Bilirubin is 1.5. Procalcitonin level is 0.61. Urine was negative. He tested negative for influenza AMB, RSV, and coronavirus infection. Chest x-ray shows some persistent interstitial opacities, consistent with scarring. This was compared to an x-ray that was done in February of last year. CT angiogram was negative for pulmonary embolism. There was groundglass opacities, consistent with possible atypical pneumonia. Echocardiogram showed an left ventricular ejection fraction of 45 to 50%. There is no clear evidence of vegetation on mitral and aortic valves, with no significant valve dysfunction. Tricuspid valve appears to show healed endocarditis. Progress note dated November 13, 2023. 27-year-old male seen yesterday in consultation. Please see note above. The patient was admitted with a diagnosis of cough and fever. The patient was recently treated for 6 weeks, with daptomycin, for endocarditis, secondary to methicillin-resistant Staph aureus. Currently, he is seen in room 356. He is getting saline at 75 cc an hour. He is getting oxygen by nasal cannula at 2 L. Saturations are 98%. Blood cultures are positive for gram-positive cocci in chains and clusters. He is currently on vancomycin and Levaquin. White count is 9, hemoglobin 10.4, hematocrit 34, platelet count 418,000. Sodium 136, pot assium 4.3, chlorides 109, CO2 20, BUN 8, and creatinine 0.47. Glucose is 112. Procalcitonin level is elevated at 3.83. Urine is clear. He did test positive for cannabinoids, and amphetamine. Objective - Vital Signs Vital signs: Vital Signs Temp 98.9 F 11/13/23 08:00 Pulse 98 11/13/23 08:00 Resp 16 11/13/23 08:00 BP 102/66 11/13/23 08:00 Pulse Ox 98 11/13/23 08:00 FiO2 Intake & Output 11/12/23 11/13/23 11/13/23 18:59 06:59 18:59 Intake Total 1068 120 Output Total 500 Balance 568 120 Intake: Oral 1068 120 Output: Urine 500 Other: Voiding Method Urinal Urinal Urinal # Voids 3 3 0 # Bowel Movements 0 - Exam No acute distress, oriented 3. Currently on 2 L nasal cannula. No respiratory difficulty. HEENT examination is grossly unremarkable. Mucous membranes are moist. No oral lesions. Neck supple. Full range of motion. No adenopathy thyromegaly or neck vein distention. Cardiovascular examination reveals regular rhythm rate. S1-S2 normal. No S3 or S4. No discernible murmur noted. Heart rate 94 bpm. Hyperdynamic precordium. Lungs reveal clear breath sounds. Breath sounds are equal bilaterally. No adventitious lung sounds including wheezes rhonchi or crackles. Saturations are 98%. Abdomen soft bowel sounds are heard. No masses or tenderness. Extremities are intact. No cyanosis clubbing or edema. Skin is without rash or lesion. Neurologic examination is brief but nonfocal. - Labs CBC & Chem 7: 11/13/23 08:22 11/13/23 08:22 Labs: Abnormal Lab Results - Last 24 Hours (Table) 11/12/23 11/12/23 11/13/23 Range/Units 12:35 12:52 08:22 RBC (4.30-5.90) m/uL Hgb (13.0-17.5) gm/dL Hct (39.0-53.0) % MCHC (31.0-37.0) g/dL Sodium 136 L (137-145) mmol/L Chloride 109 H (98-107) mmol/L Carbon Dioxide 20 L (22-30) mmol/L BUN 8 L (9-20) mg/dL Creatinine 0.47 L (0.66-1.25) mg/dL Glucose 112 H (74-99) mg/dL Procalcitonin 3.83 H (0.02-0.09) ng/mL Ur Amphetamine Screen Positive A (Negative) U Cannabinoids Screen Positive A (Negative) 11/13/23 Range/Units 08:22 RBC 3.74 L (4.30-5.90) m/uL Hgb 10.4 L (13.0-17.5) gm/dL Hct 34.0 L (39.0-53.0) % MCHC 30.5 L (31.0-37.0) g/dL Sodium (137-145) mmol/L Chloride (98-107) mmol/L Carbon Dioxide (22-30) mmol/L BUN (9-20) mg/dL Creatinine (0.66-1.25) mg/dL Glucose (74-99) mg/dL Procalcitonin (0.02-0.09) ng/mL Ur Amphetamine Screen (Negative) U Cannabinoids Screen (Negative) Microbiology - Last 24 Hours (Table) 11/11/23 20:05 Blood Culture Gram Stain - Preliminary Blood Blood Culture - Preliminary Molecular ID 11/11/23 20:20 Blood Culture Gram Stain - Preliminary Blood Assessment and Plan Assessment: Possible viral upper respiratory tract infection, versus atypical pneumonia. History of tricuspid valve endocarditis, secondary to MRSA, S/P 6 weeks of d aptomycin. History of hepatitis C. History of IV drug use. Previous history of tobacco use. History of depression. Prior history of left ankle cellulitis. Plan: Plan dated November 12, 2023. The patient was previously seen by me in consultation, in February 2023. He was initially at [facility], and transferred over here, as cardiology wanted him over here at that time. He initially presented there with ankle cellulitis, and left AGAINST MEDICAL ADVICE. 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 The patient recently completed 6 weeks of daptomycin. His current echocardiogram shows healed tricuspid valve endocarditis. His chest x-ray and CT scan are reviewed. He tested negative for influenza A, influenza B, RSV, and coronavirus. We will continue to follow. Prognosis is guarded. Plan dated November 13, 2023. The patient is currently on vancomycin and Levaquin. Blood cultures were positive for gram-positive cocci in clusters and chains. The organism has not yet been identified. The patient is currently on saline at 75 cc an hour. His room air saturations are 98%. Labs, x-rays, and medications are reviewed. We will continue to follow make recommendations. The patient is currently stable on the general medical floor. Time with Patient: Less than 30
--- NOTE | 2023-11-13 16:34 | P.PN ---
Subjective Progress Note Date: 11/13/23 Principal diagnosis: Reason for follow-up is fever and pneumonia Patient is a 27-year-old male with a past medical history significant for IV drug use and history of tricuspid valve endocarditis with MRSA bacteremia for which the patient has completed his treatment now presenting to the hospital with cough increasing shortness of breath with CT angiogram of the chest shows groundglass opacity throughout the lung blood culture positive for strep. On today's evaluation that is 11/13/2023, patient did have resolution of his fever has been afebrile, patient is breathing comfortably and is currently on room air, patient denies having any worsening cough no chest pain shortness of breath, patient denies nausea vomiting or diarrhea and no abdominal pain. Patient white count is normalized to 9.0, creatinine 0.47 progressive 3.83 urine for Legionella antigen is negative Objective - Vital Signs Vital signs: Vital Signs Temp 98.4 F 11/13/23 12:00 Pulse 96 11/13/23 12:00 Resp 16 11/13/23 12:00 BP 108/70 11/13/23 12:00 Pulse Ox 98 11/13/23 12:00 FiO2 Intake & Output 11/12/23 11/13/23 11/13/23 18:59 06:59 18:59 Intake Total 1068 240 Output Total 500 Balance 568 240 Intake: Oral 1068 240 Output: Urine 500 Other: Voiding Method Urinal Urinal Urinal # Voids 3 3 0 # Bowel Movements 0 - Exam GENERAL DESCRIPTION: Middle-age male lying in bed in no distress RESPIRATORY SYSTEM: Unlabored breathing , decreased breath sounds at bases HEART: S1 S2 regular rate and rhythm , ABDOMEN: Soft , no tenderness EXTREMITIES: No edema feet - Labs CBC & Chem 7: 11/13/23 08:22 11/13/23 08:22 Labs: Abnormal Lab Results - Last 24 Hours (Table) 11/12/23 11/12/23 11/13/23 Range/Units 12:35 12:52 08:22 RBC (4.30-5.90) m/uL Hgb (13.0-17.5) gm/dL Hct (39.0-53.0) % MCHC (31.0-37.0) g/dL Sodium 136 L (137-145) mmol/L Chloride 109 H (98-107) mmol/L Carbon Dioxide 20 L (22-30) mmol/L BUN 8 L (9-20) mg/dL Creatinine 0.47 L (0.66-1.25) mg/dL Glucose 112 H (74-99) mg/dL Procalcitonin 3.83 H (0.02-0.09) ng/mL Ur Amphetamine Screen Positive A (Negative) U Cannabinoids Screen Positive A (Negative) 11/13/23 Range/Units 08:22 RBC 3.74 L (4.30-5.90) m/uL Hgb 10.4 L (13.0-17.5) gm/dL Hct 34.0 L (39.0-53.0) % MCHC 30.5 L (31.0-37.0) g/dL Sodium (137-145) mmol/L Chloride (98-107) mmol/L Carbon Dioxide (22-30) mmol/L BUN (9-20) mg/dL Creatinine (0.66-1.25) mg/dL Glucose (74-99) mg/dL Procalcitonin (0.02-0.09) ng/mL Ur Amphetamine Screen (Negative) U Cannabinoids Screen (Negative) Microbiology - Last 24 Hours (Table) 11/11/23 20:05 Blood Culture Gram Stain - Preliminary Blood Blood Culture - Preliminary Molecular ID 11/11/23 20:20 Blood Culture Gram Stain - Preliminary Blood Assessment and Plan (1) Pneumonia Current Visit: Yes Status: Acute Code(s): J18.9 - PNEUMONIA, UNSPECIFIED O RGANISM SNOMED Code(s): 498911335 (2) Bacteremia Current Visit: Yes Status: Acute Code(s): R78.81 - BACTEREMIA SNOMED Code(s): 5941637 (3) Fever Current Visit: Yes Status: Acute Code(s): R50.9 - FEVER, UNSPECIFIED SNOMED Code(s): 982510219 Plan: 1patient with a complicated history of IV drug use patient continues to use and history of tricuspid valve endocarditis completed his IV antibiotic therapy now presented to the hospital with sepsis and the patient did have fever elevated white count predominantly respiratory symptoms with evidence of infiltrate on the CT concerning for possible atypical pneumonia patient did have a negative COVID and RSV as well as influenza. 2patient with multiple antibiotic ALLERGIES that would limit the number of antibiotic safe to use. 3blood culture currently growing strep waiting for ID blood culture has been repeated document clearance of bacteremia 4patient to continue with the vancomycin and Levaquin while waiting for the workup to be completed. Dictation was produced using [employer] dictation software. please excuse any grammatical, word or spelling errors. Time with Patient: Less than 30
[2023-11-13] MEDS: VANCOMYCIN 1,250 MG in SODIUM CHLORIDE 0.9% 250 ML IVPB SCH (17:12)
--- NOTE | 2023-11-13 20:37 | HP ---
HISTORY AND PHYSICAL CHIEF COMPLAINT: Fever and cough. HISTORY OF PRESENT ILLNESS: This is another admission for this 27-year-old white male who has had SBE in his tricuspid valve. This was from IV drug abuse. He had recently treated with antibiotics at [facility] and released, he did not require surgery. He was getting outpatient IV antibiotics several weeks ago. When he ran a fever and he was sent to the hospital. He signed out in less than 24 hours. He now came back at this time with a fever and a cough. REVIEW OF SYSTEMS: He denies any headaches, change in vision, hearing, neurologic problems, hemoptysis, orthopnea, PND, abdominal pain, nausea, vomiting, diarrhea, dysuria, frequency, urgency, nocturia, etc. Past medical history, family history, personal and social histories are essentially to be found in his multiple inpatient visits. He has not been in the office since May 2022. PHYSICAL EXAMINATION: VITAL SIGNS: Otherwise normal. HEAD, EARS, EYES, NOSE, MOUTH, AND THROAT: Normal. CHEST: Clear. CARDIAC EXAM: Demonstrated a prick pain what sounded like systolic murmur at the left sternal border. He was in sinus rhythm. There is no S3 or S4 heard. ABDOMEN: Flat, soft, nontender. EXTREMITIES: Normal. NEUROLOGIC: He is intact. DIAGNOSES: Admitted to the hospital with diagnosis: 1. Fever of unknown origin. 2. History of tricuspid subacute bacterial endocarditis. 3. Moderate protein-calorie malnutrition. 4. Longstanding history of IV drug abuse. PLAN: 1. Bed rest. 2. IV fluids. 3. Appropriate cultures. 4. Consult Cardiology and Infectious Disease. MMODL / IJN: [id number] /
--- NOTE | 2023-11-13 21:15 | PN ---
PROGRESS NOTE DATE OF SERVICE: 11/12/2023 CHIEF COMPLAINT: Fever and SBE. HISTORY OF PRESENT ILLNESS: This gentleman is still running a temperature up to as high as 103. He is being followed by Cardiology and Infectious Disease. PHYSICAL EXAMINATION: GENERAL: He remains pale, chronically ill in appearance. HEAD, EARS, EYES, NOSE, MOUTH, AND THROAT: Normal. CHEST: Clear. CARDIAC SOUNDS: Reveal what sounds like a faint grade 1 systolic murmur. ABDOMEN: Flat and soft. IMPRESSION: 1. Fever of unknown origin. 2. 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 3. Pneumonitis. 4. IV drug abuse. PLAN: Continue with IV fluids and antibiotics. MMODL / IJN: [id number] /
--- NOTE | 2023-11-13 21:22 | PN ---
PROGRESS NOTE DATE OF SERVICE: 11/13/2023 CHIEF COMPLAINT: FUO. HISTORY OF PRESENT ILLNESS: This gentleman is feeling well. Temperature has been down. PHYSICAL EXAMINATION: GENERAL: He is pale and chronically ill in appearance. His nutrition is poor. CHEST SOUNDS: Clear. CARDIAC EXAM: Unchanged. ABDOMEN: Soft and flat. IMPRESSION: 1. Fever of unknown origin. 2. 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 3. Possible pneumonitis. 4. IV drug abuse. 5. Moderate protein-calorie malnutrition. PLAN: Continue with IV fluids and antibiotics. Following any guidelines from Infectious Disease or Cardiology. MMODL / IJN: [id number] /
[2023-11-14 10:47] LABS: African American GFR (CKD) >90 (>60 ml/min/1.73 sqM); Non-African American GFR(CKD) >90 (>60 ml/min/1.73 sqM)
[2023-11-14] MEDS: BENZOCAINE SPRAY 1 CAN TOPICAL ONE (11:03)
[2023-11-14] MEDS: MIDAZOLAM 2 MG/2 ML VIAL IVP ONE (11:08)
[2023-11-14] MEDS: fentaNYL (PF) 50 MCG/ML 2 ML AMP IVP ONE (11:09)
[2023-11-14] MEDS: fentaNYL (PF) 50 MCG/ML 2 ML AMP ONE (11:33)
--- NOTE | 2023-11-14 12:08 | P.PN ---
Subjective Progress Note Date: 11/14/23 Principal diagnosis: Endocarditis. Pulmonary consult dated November 12, 2023. 27-year-old male who presents to the emergency department, on November 10, with a history of cough, and upper respiratory tract infection. The patient has a history of bacterial endocarditis, involving the tricuspid valve, secondary to IV drug use, for which she was on daptomycin for 6 weeks. The patient apparently was previously at [facility], although, I believe he was at this hospital prior. The patient reports a dry cough, for 3 days. In addition, he apparently had a fever, and some mild shortness of breath. He apparently was not coughing up any phlegm. Currently, the patient is on vancomycin and Levaquin, and currently is not on any supplemental oxygen, at this time. The patient appears to be resting comfortably. He is getting saline at 75 cc an hour. The patient apparently has a history of hepatitis C, methicillin-resistant Staph aureus endocarditis, and chronic liver disease. He also has a history of depression, and, he apparently did or currently smokes, and vapes. He has used IV heroin in the past. Current laboratory data includes a white count 15.8, hemoglobin 1.4, hematocrit 34.8, and a platelet count of 459,000. PT 12.7, INR 1.2, and D-dimer 1.49. Sodium 130, potassium 4.9, chlorides 98, CO2 23, BUN 13, creatinine 0.73. Bilirubin is 1.5. Procalcitonin level is 0.61. Urine was negative. He tested negative for influenza AMB, RSV, and coronavirus infection. Chest x-ray shows some persistent interstitial opacities, consistent with scarring. This was compared to an x-ray that was done in February of last year. CT angiogram was negative for pulmonary embolism. There was groundglass opacities, consistent with possible atypical pneumonia. Echocardiogram showed an left ventricular ejection fraction of 45 to 50%. There is no clear evidence of vegetation on mitral and aortic valves, with no significant valve dysfunction. Tricuspid valve appears to show healed endocarditis. Progress note dated November 13, 2023. 27-year-old male seen yesterday in consultation. Please see note above. The patient was admitted with a diagnosis of cough and fever. The patient was recently treated for 6 weeks, with daptomycin, for endocarditis, secondary to methicillin-resistant Staph aureus. Currently, he is seen in room 356. He is getting saline at 75 cc an hour. He is getting oxygen by nasal cannula at 2 L. Saturations are 98%. Blood cultures are positive for gram-positive cocci in chains and clusters. He is currently on vancomycin and Levaquin. White count is 9, hemoglobin 10.4, hematocrit 34, platelet count 418,000. Sodium 136, pot assium 4.3, chlorides 109, CO2 20, BUN 8, and creatinine 0.47. Glucose is 112. Procalcitonin level is elevated at 3.83. Urine is clear. He did test positive for cannabinoids, and amphetamine. Progress note dated November 14, 2023. This is a 27-year-old male well-known to our service. The patient has a prior history of methicillin-resistant Staph aureus endocarditis. The patient is currently on vancomycin and Levaquin. He is seen today room 356. He is on room air. He is getting saline at 75 cc an hour. Blood cultures were positive for gram-positive cocci in chains. The patient is going for transesophageal echocardiogram today. No new labs today other than a GFR of greater than 90, a nd a creatinine level of 0.48. His procalcitonin level from 2 days ago was 3.83. Objective - Vital Signs Vital signs: Vital Signs Temp 98.1 F 11/14/23 07:36 Pulse 81 11/14/23 11:23 Resp 18 11/14/23 11:23 BP 115/72 11/14/23 11:23 Pulse Ox 96 11/14/23 11:23 FiO2 Intake & Output 11/13/23 11/14/23 11/14/23 18:59 06:59 18:59 Intake Total 360 Output Total 350 Balance 360 -350 Intake: Oral 360 Output: Urine 350 Other: Voiding Method Urinal Urinal Urinal # Voids 0 1 1 # Bowel Movements 0 - Exam No acute distress, oriented 3. Currently on room air. No respiratory difficulty. HEENT examination is grossly unremarkable. Mucous membranes are moist. No oral lesions. Neck supple. Full range of motion. No adenopathy thyromegaly or neck vein distention. Cardiovascular examination reveals regular rhythm rate. S1-S2 normal. No S3 or S4. No discernible murmur noted. Heart rate 81 bpm. Hyperdynamic precordium. Lungs reveal clear breath sounds. Breath sounds are equal bilaterally. No adventitious lung sounds including wheezes rhonchi or crackles. Saturations are 97 %. Abdomen soft bowel sounds are heard. No masses or tenderness. Extremities are intact. No cyanosis clubbing or edema. Skin is without rash or lesion. Neurologic examination is brief but nonfocal. - Labs CBC & Chem 7: 11/13/23 08:22 11/14/23 09:11 Labs: Abnormal Lab Results - Last 24 Hours (Table) 11/14/23 Range/Units 09:11 Creatinine 0.48 L (0.66-1.25) mg/dL Assessment and Plan Assessment: Possible recurrent endocarditis. Possible viral upper respiratory tract infection, versus atypical pneumonia. History of tricuspid valve endocarditis, secondary to MRSA, S/P 6 weeks of daptomycin. History of hepatitis C. History of IV drug use. Previous history of tobacco use. History of depression. Prior history of left ankle cellulitis. Plan: Plan dated November 12, 2023. The patient was previously seen by me in consultation, in February 2023. He was initially at [facility], and transferred over here, as cardiology wanted him over here at that time. He initially presented there with ankle cellulitis, and left AGAINST MEDICAL ADVICE. 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 The patient recently completed 6 weeks of daptomycin. His current echocardiogram shows healed tricuspid valve endocarditis. His chest x-ray and CT scan are reviewed. He tested negative for influenza A, influenza B, RSV, and coronavirus. We will continue to follow. Prognosis is guarded. Plan dated November 13, 2023. The patient is currently on vancomycin and Levaquin. Blood cultures were positive for gram-positive cocci in clusters and chains. The organism has not yet been identified. The patient is currently on saline at 75 cc an hour. His room air saturations are 98%. Labs, x-rays, and medications are reviewed. We will continue to follow make recommendations. The patient is currently stable on the general medical floor. Plan dated November 14, 2023. The patient is seen today in room 356. The patient continues on vancomycin and Levaquin. Blood cultures are positive for gram-positive cocci in chains. The patient is scheduled to have a transesophageal echocardiogram today, to determi ne if he has recurrent endocarditis. The patient is receiving saline at 75 cc an hour. Labs, x-rays, and medications are reviewed. We will continue to follow and make recommendations where appropriate. Prognosis is guarded. Time with Patient: Less than 30
--- NOTE | 2023-11-14 17:47 | P.PN ---
Subjective Progress Note Date: 11/14/23 Principal diagnosis: Reason for follow-up is fever and pneumonia Patient is a 27-year-old male with a past medical history significant for IV drug use and history of tricuspid valve endocarditis with MRSA bacteremia for which the patient has completed his treatment now presenting to the hospital with cough increasing shortness of breath with CT angiogram of the chest shows groundglass opacity throughout the lung blood culture positive for strep. On today's evaluation that is 11/14/2023, Patient is afebrile this morning and denies any chills, patient mention breathing comfortably and is currently on room air, patient denies any chest pain occasional cough patient denies any abdominal pain no diarrhea no nausea no vomiting. Patient white count 9.0, creatinine 0.47 Objective - Vital Signs Vital signs: Vital Signs Temp 97.8 F 11/14/23 11:39 Pulse 71 11/14/23 14:43 Resp 16 11/14/23 11:39 BP 114/77 11/14/23 11:39 Pulse Ox 98 11/14/23 11:39 FiO2 Intake & Output 11/13/23 11/14/23 11/14/23 18:59 06:59 18:59 Intake Total 360 Output Total 350 Balance 360 -350 Intake: Oral 360 Output: Urine 350 Other: Voiding Method Urinal Urinal Urinal # Voids 0 1 1 # Bowel Movements 0 - Exam GENERAL DESCRIPTION: Middle-age male lying in bed in no distress RESPIRATORY SYSTEM: Unlabored breathing , decreased breath sounds at bases HEART: S1 S2 regular rate and rhythm , ABDOMEN: Soft , no tenderness EXTREMITIES: No edema feet - Labs CBC & Chem 7: 11/13/23 08:22 11/14/23 09:11 Labs: Abnormal Lab Results - Last 24 Hours (Table) 11/14/23 Range/Units 09:11 Creatinine 0.48 L (0.66-1.25) mg/dL Microbiology - Last 24 Hours (Table) 11/11/23 20:05 Blood Culture Gram Stain - Preliminary Blood Blood Culture - Preliminary Molecular ID Assessment and Plan (1) Pneumonia Current Visit: Yes Status: Acute Code(s): J18.9 - PNEUMONIA, UNSPECIFIED ORGANISM SNOMED Code(s): 661876323 (2) Bacteremia Current Visit: Yes Status: Acute Code(s): R78.81 - BACTEREMIA SNOMED Code(s): 3186916 (3) Fever Current Visit: Yes Status: Acute Code(s): R50.9 - FEVER, UNSPECIFIED SNOMED Code(s): 129093127 Plan: 1patient with a complicated history of IV drug use patient continues to use and history of tricuspid valve endocarditis completed his IV antibiotic therapy now presented to the hospital with sepsis and the patient did have fever elevated white count predominantly respiratory symptoms with evidence of infiltrate on the CT concerning for possible atypical pneumonia patient did have a negative COVID and RSV as well as influenza. 2patient with multiple antibiotic ALLERGIES that would limit the number of antibiotic safe to use. 3blood culture currently growing strep waiting for ID, blood culture has been repeated so far pending 4patient to continue with the vancomycin and Levaquin while waiting for the culture to finalize antibiotic clinical course closely Dictation was produced using [employer] dictation software. please excuse any grammatical, word or spelling errors. Time with Patient: Less than 30
[2023-11-14] MEDS: KETOROLAC 15 MG/ML 1 ML VIAL IVP PRN (21:02)
[2023-11-14] MEDS: ACETAMINOPHEN TAB 325 MG TAB PO PRN (21:03)
--- NOTE | 2023-11-14 21:07 | PN ---
PROGRESS NOTE DATE OF SERVICE: 11/14/2023 CHIEF COMPLAINT: Fever. HISTORY OF PRESENT ILLNESS: This gentleman is fairly stable. He has grown out a positive blood culture with cocci in chains. He is going for a transesophageal echocardiogram. PHYSICAL EXAMINATION: CHEST: Clear. CARDIAC: Reveals he has faint systolic murmur. He is poorly nourished. IMPRESSION: 1. Fever of unknown origin. 2. History of subacute bacterial endocarditis. 3. of the tricuspid valve. 4. Cardiac murmur. 5. Longstanding history of drug addiction. PLAN: REY is planned. MMODL / IJN: [id number] /
[2023-11-15 08:39] VITALS: RESP 16
[2023-11-15] MEDS: VANCOMYCIN TROUGH DUE 1 EACH MISC MISCELLANE ONE (08:45)
--- NOTE | 2023-11-15 12:08 | P.PN ---
Subjective Progress Note Date: 11/15/23 Principal diagnosis: Endocarditis. Pulmonary consult dated November 12, 2023. 27-year-old male who presents to the emergency department, on November 10, with a history of cough, and upper respiratory tract infection. The patient has a history of bacterial endocarditis, involving the tricuspid valve, secondary to IV drug use, for which she was on daptomycin for 6 weeks. The patient apparently was previously at [facility], although, I believe he was at this hospital prior. The patient reports a dry cough, for 3 days. In addition, he apparently had a fever, and some mild shortness of breath. He apparently was not coughing up any phlegm. Currently, the patient is on vancomycin and Levaquin, and currently is not on any supplemental oxygen, at this time. The patient appears to be resting comfortably. He is getting saline at 75 cc an hour. The patient apparently has a history of hepatitis C, methicillin-resistant Staph aureus endocarditis, and chronic liver disease. He also has a history of depression, and, he apparently did or currently smokes, and vapes. He has used IV heroin in the past. Current laboratory data includes a white count 15.8, hemoglobin 1.4, hematocrit 34.8, and a platelet count of 459,000. PT 12.7, INR 1.2, and D-dimer 1.49. Sodium 130, potassium 4.9, chlorides 98, CO2 23, BUN 13, creatinine 0.73. Bilirubin is 1.5. Procalcitonin level is 0.61. Urine was negative. He tested negative for influenza AMB, RSV, and coronavirus infection. Chest x-ray shows some persistent interstitial opacities, consistent with scarring. This was compared to an x-ray that was done in February of last year. CT angiogram was negative for pulmonary embolism. There was groundglass opacities, consistent with possible atypical pneumonia. Echocardiogram showed an left ventricular ejection fraction of 45 to 50%. There is no clear evidence of vegetation on mitral and aortic valves, with no significant valve dysfunction. Tricuspid valve appears to show healed endocarditis. Progress note dated November 13, 2023. 27-year-old male seen yesterday in consultation. Please see note above. The patient was admitted with a diagnosis of cough and fever. The patient was recently treated for 6 weeks, with daptomycin, for endocarditis, secondary to methicillin-resistant Staph aureus. Currently, he is seen in room 356. He is getting saline at 75 cc an hour. He is getting oxygen by nasal cannula at 2 L. Saturations are 98%. Blood cultures are positive for gram-positive cocci in chains and clusters. He is currently on vancomycin and Levaquin. White count is 9, hemoglobin 10.4, hematocrit 34, platelet count 418,000. Sodium 136, pot assium 4.3, chlorides 109, CO2 20, BUN 8, and creatinine 0.47. Glucose is 112. Procalcitonin level is elevated at 3.83. Urine is clear. He did test positive for cannabinoids, and amphetamine. Progress note dated November 14, 2023. This is a 27-year-old male well-known to our service. The patient has a prior history of methicillin-resistant Staph aureus endocarditis. The patient is currently on vancomycin and Levaquin. He is seen today room 356. He is on room air. He is getting saline at 75 cc an hour. Blood cultures were positive for gram-positive cocci in chains. The patient is going for transesophageal echocardiogram today. No new labs today other than a GFR of greater than 90, a nd a creatinine level of 0.48. His procalcitonin level from 2 days ago was 3.83. Progress note dated November 15, 2023. The patient is seen today in room 356. He is on room air. The patient is getting saline at 75 cc an hour. He continues on IV vancomycin, and IV Levaquin, as per infectious diseases. 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 The patient was previously treated with daptomycin for 6 weeks. The patient had a transesophageal echoc ardiogram done yesterday, but the official report is currently not on the chart. No new labs today. Objective - Vital Signs Vital signs: Vital Signs Temp 97.8 F 11/15/23 08:38 Pulse 76 11/15/23 08:38 Resp 16 11/15/23 08:38 BP 111/73 11/15/23 08:38 Pulse Ox 99 11/15/23 08:38 FiO2 Intake & Output 11/14/23 11/15/23 11/15/23 18:59 06:59 18:59 Intake Total 600 Output Total 850 Balance -250 Intake: Oral 600 Output: Urine 850 Other: Voiding Method Urinal Urinal Urinal # Voids 1 2 # Bowel Movements 0 - Exam No acute distress, oriented 3. Currently on room air. No respiratory difficulty. HEENT examination is grossly unremarkable. Mucous membranes are moist. No oral lesions. Neck supple. Full range of motion. No adenopathy thyromegaly or neck vein distention. Cardiovascular examination reveals regular rhythm rate. S1-S2 normal. No S3 or S4. No discernible murmur noted. Heart rate 76 bpm. Hyperdynamic precordium. Lungs reveal clear breath sounds. Breath sounds are equal bilaterally. No adventitious lung sounds including wheezes rhonchi or crackles. Saturations are 99 %. Abdomen soft bowel sounds are heard. No masses or tenderness. Extremities are intact. No cyanosis clubbing or edema. Skin is without rash or lesion. Neurologic examination is brief but nonfocal. - Labs CBC & Chem 7: 11/13/23 08:22 11/14/23 09:11 Labs: Microbiology - Last 24 Hours (Table) 11/11/23 20:05 Blood Culture Gram Stain - Preliminary Blood Blood Culture - Preliminary Streptococcus mitis group Nutritionally Variant Strep Molecular ID Assessment and Plan Assessment: Possible recurrent endocarditis. Possible viral upper respiratory tract infection, versus atypical pneumonia. History of tricuspid valve endocarditis, secondary to MRSA, S/P 6 weeks of daptomycin. History of hepatitis C. History of IV drug use. Previous history of tobacco use. History of depression. Prior history of left ankle cellulitis. Plan: Plan dated November 12, 2023. The patient was previously seen by me in consultation, in February 2023. He was initially at [facility], and transferred over here, as cardiology wanted him over here at that time. He initially presented there with ankle cellulitis, and left AGAINST MEDICAL ADVICE. 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 The patient recently completed 6 weeks of daptomycin. His current echocardiogram shows healed tricus pid valve endocarditis. His chest x-ray and CT scan are reviewed. He tested negative for influenza A, influenza B, RSV, and coronavirus. We will continue to follow. Prognosis is guarded. Plan dated November 13, 2023. The patient is currently on vancomycin and Levaquin. Blood cultures were positive for gram-positive cocci in clusters and chains. The organism has not yet been identified. The patient is currently on saline at 75 cc an hour. His room air saturations are 98%. Labs, x-rays, and medications are reviewed. We will continue to follow make recommendations. The patient is currently stable on the general medical floor. Plan dated November 14, 2023. The patient is seen today in room 356. The patient continues on vancomycin and Levaquin. Blood cultures are positive for gram-positive cocci in chains. The patient is scheduled to have a transesophageal echocardiogram today, to d etermine if he has recurrent endocarditis. The patient is receiving saline at 75 cc an hour. Labs, x-rays, and medications are reviewed. We will continue to follow and make recommendations where appropriate. Prognosis is guarded. Plan dated November 15, 2023. The patient's blood cultures are positive for Streptococcus mitis and a nutritionally variant strep. The patient continues on IV vancomycin, and IV Levaquin. The patient apparently had a transesophageal echocardiogram done yesterday, but the official report is not yet on the chart. The patient continues on room air. The patient is getting saline at 75 cc an hour. Labs, x-rays, medications are reviewed. Prognosis is guarded. Time with Patient: Less than 30
[2023-11-15 12:41] VITALS: BP 126/82; PULSE 79; TEMP 98.4
[2023-11-15] MEDS ORDERED: VANCOMYCIN TROUGH DUE 1 EACH MISC MISCELLANE ONE (16:00)
--- NOTE | 2023-11-15 16:01 | P.PN ---
Subjective Progress Note Date: 11/15/23 Principal diagnosis: Reason for follow-up is fever and pneumonia Patient is a 27-year-old male with a past medical history significant for IV drug use and history of tricuspid valve endocarditis with MRSA bacteremia for which the patient has completed his treatment now presenting to the hospital with cough increasing shortness of breath with CT angiogram of the chest shows groundglass opacity throughout the lung blood culture positive for strep. On today's evaluation that is 11/15/2023,the patient denies any fever or any chills, patient is breathing comfortably on room air, the patient denies chest pain shortness of breath and no significant cough, patient denies abdominal pain, no nausea vomiting or diarrhea. Mention feeling better. Not have any lab draw today blood culture with Streptococcus mitis blood culture repeat so far negative Objective - Vital Signs Vital signs: Vital Signs Temp 98.4 F 11/15/23 12:38 Pulse 79 11/15/23 12:38 Resp 16 11/15/23 12:38 BP 126/82 11/15/23 12:38 Pulse Ox 100 11/15/23 12:38 FiO2 Intake & Output 11/14/23 11/15/23 11/15/23 18:59 06:59 18:59 Intake Total 600 Output Total 850 Balance -250 Intake: Oral 600 Output: Urine 850 Other: Voiding Method Urinal Urinal Urinal # Voids 1 2 # Bowel Movements 0 - Exam GENERAL DESCRIPTION: Middle-age male lying in bed in no distress RESPIRATORY SYSTEM: Unlabored breathing , decreased breath sounds at bases HEART: S1 S2 regular rate and rhythm , ABDOMEN: Soft , no tenderness EXTREMITIES: No edema feet - Labs CBC & Chem 7: 11/13/23 08:22 11/14/23 09:11 Labs: Microbiology - Last 24 Hours (Table) 11/11/23 20:05 Blood Culture Gram Stain - Preliminary Blood Blood Culture - Preliminary Streptococcus mitis group Nutritionally Variant Strep Molecular ID Assessment and Plan (1) Pneumonia Status: Acute Code(s): J18.9 - PNEUMONIA, UNSPECIFIED ORGANISM SNOMED Code(s): 045511833 (2) Bacteremia Status: Acute Code(s): R78.81 - BACTEREMIA SNOMED Code(s): 6455262 (3) Fever Status: Acute Code(s): R50.9 - FEVER, UNSPECIFIED SNOMED Code(s): 813994676 Plan: 1patient with a complicated history of IV drug use patient continues to use and history of tricuspid valve endocarditis completed his IV antibiotic therapy now presented to the hospital with sepsis and the patient did have fever elevated white count predominantly respiratory symptoms with evidence of infiltrate on the CT concerning for possible atypical pneumonia patient did have a negative COVID and RSV as well as influenza. 2patient with multiple antibiotic ALLERGIES that would limit the number of antibiotic safe to use. 3blood culture currently growing Streptococcus mitis with repeat blood culture negative 4Streptococcus mitis associated with endocarditis this patient history of IV drug use will benefit from REY would not continue with the vancomycin Levaquin Dictation was produced using [employer] dictation software. please excuse any grammatical, word or spelling errors. Time with Patient: Greater than 30
--- NOTE | 2023-11-15 18:33 | P.TEE ---
Indications for Procedure(s): Endocarditis Date of Procedure: 11/14/23 Description of Procedure(s): Procedure performed: 1. Transesophageal Echocardiogram with color flow doppler, pulsed wave doppler and continuous wave doppler 2. Moderate conscious sedation. Sedation time 15 mins. 3. Bubble Study Indications: Rule out tricuspid valve infective endocarditis. Patient is a 27-year-old male with with past medical history of IV drug abuse and prior history of infective endocarditis involving tricuspid valve. He presents to the hospital with concerns of bacteremia and his surface echocardiogram showed concerns of possible tricuspid valve endocarditis with torrential tricuspid regurgitation. Consent: I have discussed the risks, benefits and alternative therapies for the above-mentioned procedure. The patient has indicated understanding and acceptance of the risks of the procedure. Signed consent was obtained and was placed in the paper chart. Procedural Steps: Timeout was performed in usual fashion. Patient's heart rate, blood pressure, oxygen saturation and ECG were monitored. Benzocaine was sprayed liberally in the back of the throat. Bite block was placed between the jaw. 3 mg of Versed and 75 mcg of Fentanyl were administered intravenously. After achieving appropriate moderate conscious sedation, REY probe was advanced without difficulty and without any immediate complications to the esophagus. REY study was performed with color flow doppler, pulsed wave doppler and continuous wave doppler. The probe was then removed. Patient tolerated the procedure well. Patient was transferred to the post procedure area in stable and satisfactory condition. Throughout the procedure patient's heart rate, blood pressure, oxygen saturation and ECG were monitored. Total sedation time 15 mins. Complications: none FINDINGS Left Atrium: Normal Left atrial size. No evidence of mass or thrombus seen Left Atrial Appendage: No evidence of thrombus or mass seen in [place] Inter atrial septum: Intact inter-atrial septum Left Ventricle: Normal global LV size and systolic function Right Atrium: Severe right atrial dilatation, with systolic bulge of interatrial septum towards the left side. Right Ventricle: There right ventricular dilatation with mildly reduced systolic function Aortic Valve: Structurally normal Trileaflet, no significant calcification. No significant stenosis or regurgitation on color doppler assessment. No evidence of vegetation on aortic valve Mitral Valve: Struturally normal. No evidence of prolapse. No evidence of stenosis or regurgitation on doppler assessment. No evidence of vegetation on mitral valve Pulmonic Valve: No evidence of vegetation on pulmonic valve. Tricuspid Valve: Evidence of small vegetation involving anterior tricuspid leaflet approx measuring 6 mm. There is torrential tricuspid regurgitation Ascending aorta, Aortic root and Aortic arch: Normal size aortic root and ascending aorta. No clear evidence of any aortic root abscess No pericardial effusion CONCLUSION: Small vegetation noticed on anterior mitral leaflet of tricuspid valve. Should be treated as endocarditis if blood cultures are positive. Cannot say if this is residual endocarditis or infection. Damaged tricuspid valve with torrential tricuspid regurgitation with signs of RV volume overload Severe RA dilatation Severe RV dilatation with mildly reduced systolic function When compared to prior REY from February 2023, tricuspid vegetation size much smaller and is appearing to only involve anterior leaflet. Right atrium is severely dilated, right ventricle is severely dilated on current study Kaz Ramirez MD, RPVI, FACC Thank you for allowing [facility] to participate in this patient's care. Feel free to reach out in case of any followup questions.
--- NOTE | 2023-11-18 03:06 | DS ---
DISCHARGE SUMMARY CHIEF COMPLAINT: Fever, shortness of breath, a history of SBE and drug addiction. HISTORY OF PRESENT ILLNESS AND PHYSICAL EXAM: Details of this man's history and physical could be found in the initial workup. LABORATORY STUDIES: While he was in the hospital, he had laboratory studies, details of which can be found in the laboratory section of his chart. COURSE IN THE HOSPITAL: After admission, he was placed on bedrest and had multiple blood cultures obtained. He was seen by Cardiology. His temperature has stayed down. He is also followed by Infectious Disease. He underwent a REY and he was being treated, and he suddenly signed out against medical advice on the . FINAL DIAGNOSES: 1. Fever of undetermined origin. 2. Pneumonitis. 3. 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 4. Drug addiction. OPERATIONS: None. CONSULTATIONS: Cardiology and Infectious Disease. MMSENG / JODY: [id number] /
== END 2023-11-15 13:55 | disposition left against medical advice (07) | DRG 720 ==
LOC: EC 19:17 → 3SCARD 23:31
PROVIDERS: ADMIT Family Medicine; ATTEND Family Medicine
PROC: B24BZZ4 Ultrasonography of Heart with Aorta, Transesophageal (ICD-10-PCS; principal; 2023-11-14 07:30)
DX: A41.9 Sepsis, unspecified organism (principal); I33.0 Acute and subacute infective endocarditis; E44.0 Moderate protein-calorie malnutrition; J18.9 Pneumonia, unspecified organism; E87.1 Hypo-osmolality and hyponatremia; B19.20 Unspecified viral hepatitis C without hepatic coma; I10 Essential (primary) hypertension; F32.A Depression, unspecified; F11.10 Opioid abuse, uncomplicated; Z68.20 Body mass index [BMI] 20.0-20.9, adult; Z28.310 Unvaccinated for COVID-19; B95.0 Streptococcus, group A, as the cause of diseases classified elsewhere; I45.10 Unspecified right bundle-branch block; Z53.29 Procedure and treatment not carried out because of patient's decision for other reasons; F17.290 Nicotine dependence, other tobacco product, uncomplicated; Z71.6 Tobacco abuse counseling; Z86.14 Personal history of Methicillin resistant Staphylococcus aureus infection; Z59.12 Inadequate housing utilities; Z59.41 Food insecurity; Z88.1 Allergy status to other antibiotic agents; Z88.2 Allergy status to sulfonamides
CPT/HCPCS: 36415; 71046; 71275; 80048; 80053; 80202; 80306; 81003; 82565; 83605; 84145; 84484; 85025; 85379; 85610; 85730; 87040; 87077; 87186; 87449; 87636; 93005; 93306; 93312; 93320; 93325; 96374; 99285

== ENCOUNTER 2024-01-01 15:43 | Emergency (ER) | payer OTHER | END 2024-01-01 16:30 | LOC: EC 15:43 | DX: F10.129 Alcohol abuse with intoxication, unspecified (principal) | CPT/HCPCS: 99284 ==

== ENCOUNTER 2024-01-06 04:20 | Inpatient (IN) | payer OTHER ==
[~2024-01-06 04:20] MED LIST: ACETAMINOPHEN TAB 500 MG TAB ONE; LIDOCAINE 4% PATCH TOPICAL ONE; PIPERACILLIN-TAZOBACTAM 3.375 GM VIAL ONE; SODIUM CHLORIDE 0.9% 1,000 ML BAG ONE; SODIUM CHLORIDE 0.9% 100 ML BAG IV ONE
[2024-01-06] MEDS ORDERED: KETOROLAC 15 MG/ML 1 ML VIAL ONE ×2 (05:07→15:06)
[2024-01-06] MEDS ORDERED: cefTRIAXone 2 GM VIAL ONE (13:30)
[2024-01-06] MEDS ORDERED: HYDROcodone/APAP 5-325MG 1 EACH TAB ONE (15:04)
[2024-01-06] MEDS ORDERED: VANCOMYCIN 1,000 MG VIAL ONE (15:30)
[2024-01-06] MEDS ORDERED: SODIUM CHLORIDE 0.9% 250 ML BAG ONE (15:30)
--- NOTE | 2024-02-05 18:21 | US ---
Patient Ugo Wilson ID [id number] Order # EXAMINATION TYPE: US kidneys/renal and bladder DATE OF EXAM: 01/06/2024 COMPARISON: No comparison available on downtime PACS. INDICATION: Right flank pain and right upper quadrant pain. EXAM MEASUREMENTS: Liver Length: 17.49 m Gallbladder Wall: Bladder wall is thickened measuring 0.5 cm. Normal less than 0.3 cm. Positive Mu rphy's sign during the exam CBD: Not measured ANATOMY: Pancreas: Head and body of pancreas is normal. Tail of pancreas has limited visualization. Liver: Normal echotexture. No discrete masses or cysts. Mild hepatomegaly is present. Gallbladder: There is gallbladder wall thickening is present in 0.53 cm. Pericholecystic fluid is not clearly evident. No gallstones are identified. There may be some focal thickening near the upper anterior gallbladder wall. Example images 33-[address] sign: Right Kidney: 11.2 x 4.1 x 4.3 cm IMPRESSION: 1. Gallbladder wall with positive Lane sign. Findings in the high correlation with acute cholecysti tis. 2 hepatomegaly
--- NOTE | 2024-02-09 20:36 | CT ---
EXAM: CT Chest With Intravenous Contrast CLINICAL HISTORY: Possible cyst on lung. Seen in CT ABD/PELVIS TECHNIQUE: Axial computed tomography images of the chest with intravenous contrast. CTDI is 5 mGy and DLP is 215.7 mGy-cm. This CT exam was performed using one or more of the following dose reduction techniques: automated exposure control, adjustment of the mA and/or kV according to patient size, and/or use of iterative reconstruction technique. COMPARISON: CT abdomen and pelvis from January 05, 2024 FINDINGS: Lungs: There are multiple cavitary lesions scattered throughout both lungs ranging in size from less than 1 cm up to 2.8 cm in the left upper lobe. There is a gas fluid level in the largest lesion. The heart is mildly enlarged. There is reflux of contrast through a dilated right atrium into the IVC and hepatic veins suggesting some component of CHF. No mass. No consolidation. Pleural space: There is a small amount of scattered streaky infiltrates in the inferior aspect of the right middle and lower lobes as well as a small right pleural effusion layering 1.5 cm posteriorly. No pneumothorax. Heart:Unremarkable. No cardiomegaly. No significant pericardial effusion. No significant coronary artery calcifications. Bones/joints: Skeletal structures are unremarkable. No acute fracture. No dislocation. Soft tissues:Unremarkable. Vasculature:Unremarkable. No thoracic aortic aneurysm. Lymph nodes:Unremarkable. No enlarged lymph nodes. IMPRESSION: 1. There are multiple cavitary lesions scattered throughout both lungs ranging in size from less than 1 cm up to 2.8 cm in the left upper lobe. There is a gas fluid level in the largest lesion. Consider septic emboli with multiple pulmonary abscesses. 2. There is a small amount of scattered streaky infiltrate consistent with pneumonia in the inferior aspect of the right middle and lower lobes as well as a small right pleural effusion layering 1.5 cm posteriorly. 3. The heart is mildly enlarged. There is reflux of contrast through a dilated right atrium into the IVC and hepatic veins suggesting some component of CHF. Radiologist: Braxton Marques MD Electronically Signed: 01/06/24 03:10 Study ready at 01:53 and initial results transmitted at 03:1 [facility]
--- NOTE | 2024-02-09 20:38 | CT ---
EXAM: CT Abdomen and Pelvis Without Intravenous Contrast CLINICAL HISTORY: Rt flank pain x5 days TECHNIQUE: Axial computed tomography images of the abdomen and pelvis without intravenous contrast. CTDI is 5.5 mGy and DLP is 367.9 mGy-cm. This CT exam was performed using one or more of the following dose reduction techniques: automated exposure control, adjustment of the mA and/or kV according to patient size, and/or use of iterative reconstruction technique. COMPARISON: No relevant prior studies available. FINDINGS: Lung bases: See below. Pleural space: Small RIGHT pleural effusion. ABDOMEN: Liver:Hepatic cavitary/bolus changes at the lung bases, which may represent developing intrapulmonary abscesses given the mild thickening of the surrounding lung parenchyma. Recommend chest CT scan. Correlate for IVDA. Hepatic steatosis. Gallbladder and bile ducts:Contracted gallbladder with wall thickening measuring up to 8 mm. If there is concern for acute cholecystitis, recommend gallbladder ultrasound. No ductal dilation. Pancreas:Unremarkable. No ductal dilation. Spleen:Unremarkable. No splenomegaly. Adrenals:Unremarkable. No mass. Kidneys and ureters:Unremarkable. No hydronephrosis, nephrolithiasis, or obstructive uropathy. Stomach and bowel: Moderate fecal retention, correlate for constipation. No obstruction. No mucosal thickening. PELVIS: Appendix:No findings to suggest acute appendicitis. Bladder:Unremarkable. No stones. Reproductive:Unremarkable as visualized. ABDOMEN and PELVIS: Intraperitoneal space:Unremarkable. No free air. No significant fluid collection. Bones/joints:No acute fracture. No dislocation. Soft tissues:Unremarkable. Vasculature:Unremarkable. No abdominal aortic aneurysm. Lymph nodes:Unremarkable. No enlarged lymph nodes. IMPRESSION: 1. No hydronephrosis, nephrolithiasis, or obstructive uropathy. 2. Hepatic cavitary/bolus changes at the lung bases, which may represent developing intrapulmonary abscesses given the mild thickening of the surrounding lung parenchyma. Recommend chest CT scan. Correlate for IVDA. 3. Contracted gallbladder with wall thickening measuring up to 8 mm. If there is concern for acute cholecystitis, recommend gallbladder ultrasound. 4. Moderate fecal retention, correlate for constipation. 5. Small RIGHT pleural effusion. Radiologist: Jace Salcedo MD Electronically Signed: 01/06/24 00:15 Study ready at 22:13 and initial results transmitted at 00:15 [facility]
--- NOTE | 2024-02-21 15:37 | CONS ---
CONSULTATION LOCATION: ER 19. REASON FOR CONSULTATION: Pulmonary abscess and concerning for endocarditis. HISTORY OF PRESENT ILLNESS: The patient is a 28-year-old male with a past medical history significant for IV drug use. He did have history of endocarditis requiring IV antibiotic therapy, which he mentioned completed 2 months ago. The patient is presenting to [facility] on concern for right-sided abdominal pain, apparently that has been getting worse over the last 5 days. The patient did have a history of IV drug use, mentioned last drink use was about a month ago. The patient complaining of pain to be sharp almost shortness of breath and cough associated with it and is bringing up some purulent sputum. The patient denies any nausea, no vomiting, no abdominal pain, no diarrhea. The patient has been evaluated, did have abnormal CT suggestive of abscesses. The patient received a dose of vancomycin and Zosyn. Infectious Disease was consulted for further management of antibiotic therapy. REVIEW OF SYSTEMS: Positive points have been mentioned in HPI. Rest of systems negative. PAST MEDICAL HISTORY: For endocarditis. PAST SURGICAL HISTORY: Reviewed. SOCIAL HISTORY: Positive for IV drug use, last use about a month ago into [employer]. Denies any drinking. FAMILY HISTORY: No pertinent findings noticed. ALLERGIES: No known drug allergies. MEDICATIONS: The patient is currently on: 1. Toradol. 2. IV fluid. 3. Vancomycin, pharmacy to dose. 4. Protonix. 5. Rocephin 2 g daily. 6. Flagyl 500 t.i.d. 7. [place]. PHYSICAL EXAMINATION: VITAL SIGNS: Blood pressure is 121/88, pulse of 90. GENERAL DESCRIPTION: This is a middle-aged male, lying in bed, in no distress. No tachypnea or accessory muscle of respiration use. HEENT: Shows pallor. No scleral icterus. Oral mucosa . NECK: Trachea is central. No thyromegaly. LUNGS: Unlabored breathing. Decreased breath sounds. No wheeze. HEART: S1, S2. Regular rate and rhythm. ABDOMEN: Soft. No tenderness. No guarding or rigidity. EXTREMITIES: No edema in feet. SKIN: No rashes. No mass palpable. NEUROLOGICAL: The patient is awake, alert, oriented x3. Mood and affect normal. LABORATORY DATA: BUN of 9, creatinine 0.53. Hemoglobin is , white count 10.25. CT of abdomen and pelvis shows multiple cavitary lesions scattered throughout both lungs, small amount of scattered streaky infiltrate consistent with pneumonia, heart is mildly enlarged. Cultures are currently pending. DIAGNOSTIC IMPRESSION: The patient presenting to the hospital with right-sided abdominal pain in this patient, who did have an evidence of multiple cavitary lesions in the lungs concerning for septic emboli likely from endocarditis in this patient who did have a history of IV drug use and previous history of endocarditis. The patient also has abnormal CT suspicious for . PLAN: 1. Blood culture has been obtained. We will repeat blood cultures to document positive. 2. Await for the echocardiogram and possible REY. 3. We will continue the patient on vancomycin, pharmacy to dose . We will add cefepime 2 g q.8 hours and Flagyl to cover for the gram-negative anaerobes, especially with the findings of . 4. We will follow on clinical condition and culture to further adjust medication if needed. Thank you for this consultation. We will follow this patient along with you. MMODL / IJN: [id number] /
== END 2024-01-06 22:27 | disposition left against medical advice (07) | DRG 137 ==
LOC: 3NCARDOBS 04:20
PROVIDERS: ADMIT Hospitalist; ATTEND Hospitalist
DX: J85.2 Abscess of lung without pneumonia (principal); I76 Septic arterial embolism; K81.0 Acute cholecystitis; F11.11 Opioid abuse, in remission; Z86.79 Personal history of other diseases of the circulatory system; Z86.711 Personal history of pulmonary embolism; Z88.1 Allergy status to other antibiotic agents; Z88.2 Allergy status to sulfonamides; Z53.29 Procedure and treatment not carried out because of patient's decision for other reasons; Z86.19 Personal history of other infectious and parasitic diseases
CPT/HCPCS: 71260; 74176; 76705; 87040; 96361; 96365; 99285